=== PATIENT | female | born 1960 | race Caucasian/White ===

== ENCOUNTER → 2016-06-09 10:31 | Outpatient (CLI) | payer MEDICARE ==
[2011-12-23 11:24] VITALS: BMI 23.7
[2016-06-10 13:18] LABS: IMMUNOGLOBULIN E 175 IU/mL (0-100)
== END | disposition home or self-care (01) ==
LOC: D.RT 10:31
PROVIDERS: Internal Medicine Pulmonary Disease
DX: J44.9 Chronic obstructive pulmonary disease, unspecified (principal)

== ENCOUNTER → 2016-06-11 19:58 | Outpatient (CLI) | payer MEDICARE ==
[2011-12-23 11:24] VITALS: BMI 23.7
== END | disposition home or self-care (01) ==
LOC: D.SLEEP 19:58
DX: G47.33 Obstructive sleep apnea (adult) (pediatric) (principal)

== ENCOUNTER 2016-06-19 03:01 | Emergency (ER) | payer MEDICARE ==
[2011-12-23 11:24] VITALS: BMI 23.7
== END 2016-06-19 04:06 | disposition home or self-care (01) ==
LOC: D.ER 03:01
DX: R06.00 Dyspnea, unspecified (principal); J44.1 Chronic obstructive pulmonary disease with (acute) exacerbation; R51 Headache; M54.12 Radiculopathy, cervical region; E11.9 Type 2 diabetes mellitus without complications; E87.6 Hypokalemia; F17.200 Nicotine dependence, unspecified, uncomplicated

== ENCOUNTER 2016-06-22 01:16 | Emergency (ER) | payer MEDICARE ==
[2011-12-23 11:24] VITALS: BMI 23.7
[2016-06-22 01:44] LABS: BASOPHILS 0.3 % (0.0-2.0); EOSINOPHILS 2.9 % (0-7); HEMATOCRIT 36.7 % (36.0-48.0); HEMOGLOBIN 12.1 g/dL (12-16); IMMATURE GRANULOCYTES 0.2 % (0-5); LYMPHOCYTES 16.4 % (15-50); MCH 29.9 pg (26.0-34.0); MCV 90.6 fL (80.0-100.0); MEAN PLATELET VOLUME 10.2 fL (7.4-10.4); MONOCYTES 8.2 % (2-11); RBC 4.05 10x6/uL (4.00-5.40); RDW 14.3 % (11.5-14.5); WBC 6.2 10x3/uL (4.8-10.8)
[2016-06-22 01:49] LABS: PLATELET COUNT 238 10x3/uL (130-400)
[2016-06-22 01:58] LABS: ALBUMIN 3.5 g/dL (3.4-5.0); ALKALINE PHOSPHATASE 61 U/L (46-116); ALT (SGPT) 21 U/L (10-68); BILIRUBIN - TOTAL 0.37 mg/dL (0.2-1.3); CALC OSMOLALITY 279 mosm/kg (275-300); CALCIUM 8.1 mg/dL (8.5-10.1); CARBON DIOXIDE 26.3 mmol/L (21.0-32.0); CHLORIDE - SERUM 103 mmol/L (98-107); CREATININE - SERUM 0.9 mg/dL (0.6-1.3); GLUCOSE 111 mg/dL (74-106); POTASSIUM - SERUM 4.2 mmol/L (3.5-5.1); PROTEIN - SERUM 6.3 g/dL (6.4-8.2); SODIUM 137 mmol/L (136-145); UREA NITROGEN 26 mg/dL (7-18); eGFR NON AFRICAN AMERICAN 69 mL/min (90-120)
[2016-06-22 02:07] LABS: CKMB 1.5 U/L (0.0-3.6); CREATINE KINASE 80 UL (21-215)
[2016-06-22 02:08] LABS: TROPONIN-I < 0.017 ng/mL (0.000-0.060)
[2016-06-22 03:37] LABS: UDS - AMPHET NEGATIVE QUAL (NEGATIVE); UDS - BARB NEGATIVE QUAL (NEGATIVE); UDS - BENZO NEGATIVE QUAL (NEGATIVE); UDS - COCAINE NEGATIVE QUAL (NEGATIVE); UDS - METH NEGATIVE QUAL (NEGATIVE); UDS - OPIATE POSITIVE QUAL (NEGATIVE); UDS - PCP NEGATIVE QUAL (NEGATIVE); UDS - THC NEGATIVE QUAL (NEGATIVE)
== END 2016-06-22 04:08 | disposition home or self-care (01) ==
LOC: D.ER 01:16
PROVIDERS: Family Medicine
DX: R07.9 Chest pain, unspecified (principal); R51 Headache; J44.9 Chronic obstructive pulmonary disease, unspecified; E11.9 Type 2 diabetes mellitus without complications; E87.6 Hypokalemia; F17.200 Nicotine dependence, unspecified, uncomplicated; R00.0 Tachycardia, unspecified

== ENCOUNTER 2016-07-15 10:51 | Emergency (ER) | payer MEDICARE ==
[2011-12-23 11:24] VITALS: BMI 23.7
== END 2016-07-15 14:58 | disposition home or self-care (01) ==
LOC: D.ER 10:51
DX: R51 Headache (principal); R11.2 Nausea with vomiting, unspecified; J44.9 Chronic obstructive pulmonary disease, unspecified; E11.9 Type 2 diabetes mellitus without complications; E87.6 Hypokalemia; F17.200 Nicotine dependence, unspecified, uncomplicated

== ENCOUNTER 2016-07-28 00:20 | Emergency (ER) | payer MEDICARE ==
[2011-12-23 11:24] VITALS: BMI 23.7
[2016-07-28 01:32] LABS: KETONE - SERUM NEGATIVE (NEGATIVE)
[2016-07-28 01:41] LABS: BASOPHILS 0.1 % (0.0-2.0); EOSINOPHILS 0.1 % (0-7); HEMATOCRIT 37.1 % (36.0-48.0); HEMOGLOBIN 12.8 g/dL (12-16); IMMATURE GRANULOCYTES 0.3 % (0-5); LYMPHOCYTES 23.8 % (15-50); MCH 30.5 pg (26.0-34.0); MCHC 34.5 g/dL (31.0-37.0); MCV 88.3 fL (80.0-100.0); MEAN PLATELET VOLUME 11.2 fL (7.4-10.4); MONOCYTES 8.9 % (2-11); NEUTROPHILS 66.8 % (40-80); PLATELET COUNT 274 10x3/uL (130-400); RDW 14.1 % (11.5-14.5)
[2016-07-28 01:58] LABS: ALBUMIN 3.9 g/dL (3.4-5.0); ALKALINE PHOSPHATASE 53 U/L (46-116); ALT (SGPT) 23 U/L (10-68); BILIRUBIN - TOTAL 0.19 mg/dL (0.2-1.3); CALC OSMOLALITY 284 mosm/kg (275-300); CALCIUM 10.1 mg/dL (8.5-10.1); CARBON DIOXIDE 27.9 mmol/L (21.0-32.0); CHLORIDE - SERUM 101 mmol/L (98-107); CREATININE - SERUM 0.9 mg/dL (0.6-1.3); GLUCOSE 100 mg/dL (74-106); POTASSIUM - SERUM 3.6 mmol/L (3.5-5.1); PROTEIN - SERUM 7.2 g/dL (6.4-8.2); SODIUM 136 mmol/L (136-145); UREA NITROGEN 50 mg/dL (7-18); eGFR NON AFRICAN AMERICAN 69 mL/min (90-120)
[2016-07-28 02:19] LABS: APPEARANCE HAZY (CLEAR); BILIRUBIN NEGATIVE (NEGATIVE); COLOR STRAW (YELLOW); GLUCOSE NEGATIVE (NEGATIVE); KETONE NEGATIVE (NEGATIVE); LEUKOCYTE ESTERASE NEGATIVE (NEGATIVE); NITRITE NEGATIVE (NEGATIVE); PH 5.5 (5.0-6.0); PROTEIN NEGATIVE (NEGATIVE); UROBILINOGEN NORMAL (NORMAL)
[2016-07-28 02:25] LABS: UDS - AMPHET NEGATIVE QUAL (NEGATIVE); UDS - BARB NEGATIVE QUAL (NEGATIVE); UDS - BENZO NEGATIVE QUAL (NEGATIVE); UDS - COCAINE NEGATIVE QUAL (NEGATIVE); UDS - METH NEGATIVE QUAL (NEGATIVE); UDS - OPIATE POSITIVE QUAL (NEGATIVE); UDS - PCP NEGATIVE QUAL (NEGATIVE); UDS - THC NEGATIVE QUAL (NEGATIVE)
== END 2016-07-28 02:15 | disposition home or self-care (01) ==
LOC: D.ER 00:20
PROVIDERS: Emergency Medicine
DX: G40.409 Other generalized epilepsy and epileptic syndromes, not intractable, without status epilepticus (principal); Z91.14 Patient's other noncompliance with medication regimen; J44.9 Chronic obstructive pulmonary disease, unspecified; E11.9 Type 2 diabetes mellitus without complications; F17.200 Nicotine dependence, unspecified, uncomplicated

== ENCOUNTER 2016-07-28 05:04 | Emergency (ER) | payer MEDICARE ==
[2011-12-23 11:24] VITALS: BMI 23.7
== END 2016-07-28 06:05 | disposition home or self-care (01) ==
LOC: D.ER 05:04
DX: G43.909 Migraine, unspecified, not intractable, without status migrainosus (principal); F17.200 Nicotine dependence, unspecified, uncomplicated; J44.9 Chronic obstructive pulmonary disease, unspecified; E11.9 Type 2 diabetes mellitus without complications

== ENCOUNTER 2016-08-01 03:34 | Emergency (ER) | payer MEDICARE ==
[2011-12-23 11:24] VITALS: BMI 23.7
== END 2016-08-01 05:08 | disposition home or self-care (01) ==
LOC: D.ER 03:34
DX: R51 Headache (principal); J44.9 Chronic obstructive pulmonary disease, unspecified; E11.9 Type 2 diabetes mellitus without complications

== ENCOUNTER 2016-08-06 00:27 | Emergency (ER) | payer MEDICARE ==
[2011-12-23 11:24] VITALS: BMI 23.7
[2016-08-06 01:05] LABS: UDS - AMPHET NEGATIVE QUAL (NEGATIVE); UDS - BARB POSITIVE QUAL (NEGATIVE); UDS - BENZO NEGATIVE QUAL (NEGATIVE); UDS - COCAINE NEGATIVE QUAL (NEGATIVE); UDS - METH NEGATIVE QUAL (NEGATIVE); UDS - OPIATE POSITIVE QUAL (NEGATIVE); UDS - PCP NEGATIVE QUAL (NEGATIVE); UDS - THC NEGATIVE QUAL (NEGATIVE)
[2016-08-06 01:30] LABS: BASOPHILS 0.3 % (0.0-2.0); EOSINOPHILS 9.8 % (0-7); HEMATOCRIT 37.9 % (36.0-48.0); HEMOGLOBIN 12.4 g/dL (12-16); IMMATURE GRANULOCYTES 0.4 % (0-5); LYMPHOCYTES 21.4 % (15-50); MCH 30.1 pg (26.0-34.0); MCHC 32.7 g/dL (31.0-37.0); MEAN PLATELET VOLUME 11.2 fL (7.4-10.4); MONOCYTES 9.6 % (2-11); NEUTROPHILS 58.5 % (40-80); PLATELET COUNT 274 10x3/uL (130-400); RBC 4.12 10x6/uL (4.00-5.40); RDW 14.4 % (11.5-14.5); WBC 7.7 10x3/uL (4.8-10.8)
== END 2016-08-06 02:58 | disposition home or self-care (01) ==
LOC: D.ER 00:27
PROVIDERS: Emergency Medicine; Physician Assistant Medical
DX: G40.909 Epilepsy, unspecified, not intractable, without status epilepticus (principal); J44.9 Chronic obstructive pulmonary disease, unspecified; E11.9 Type 2 diabetes mellitus without complications; F17.200 Nicotine dependence, unspecified, uncomplicated

== ENCOUNTER 2016-08-18 09:22 | Emergency (ER) | payer MEDICARE ==
[2011-12-23 11:24] VITALS: BMI 23.7
[2016-08-18 12:25] LABS: BASOPHILS 0.5 % (0.0-2.0); EOSINOPHILS 4.3 % (0-7); HEMATOCRIT 39.3 % (36.0-48.0); IMMATURE GRANULOCYTES 0.5 % (0-5); LYMPHOCYTES 22.1 % (15-50); MCH 30.4 pg (26.0-34.0); MCHC 35.6 g/dL (31.0-37.0); MCV 85.4 fL (80.0-100.0); MEAN PLATELET VOLUME 10.3 fL (7.4-10.4); MONOCYTES 11.7 % (2-11); NEUTROPHILS 60.9 % (40-80); PLATELET COUNT 322 10x3/uL (130-400); RDW 12.6 % (11.5-14.5); WBC 4.4 10x3/uL (4.8-10.8)
[2016-08-18 12:33] LABS: CALC OSMOLALITY 251 mosm/kg (275-300); CARBON DIOXIDE 23.2 mmol/L (21.0-32.0); CHLORIDE - SERUM 90 mmol/L (98-107); CREATININE - SERUM 0.7 mg/dL (0.6-1.3); GLUCOSE 86 mg/dL (74-106); POTASSIUM - SERUM 3.7 mmol/L (3.5-5.1); SODIUM 125 mmol/L (136-145); UREA NITROGEN 16 mg/dL (7-18); eGFR NON AFRICAN AMERICAN > 90 mL/min (90-120)
== END 2016-08-18 13:59 | disposition home or self-care (01) ==
LOC: D.ER 09:22
PROVIDERS: Emergency Medicine
DX: G43.909 Migraine, unspecified, not intractable, without status migrainosus (principal); M54.12 Radiculopathy, cervical region; J44.9 Chronic obstructive pulmonary disease, unspecified; E11.9 Type 2 diabetes mellitus without complications

== ENCOUNTER → 2016-08-24 08:27 | Outpatient (CLI) | payer MEDICARE ==
[2011-12-23 11:24] VITALS: BMI 23.7
== END | disposition home or self-care (01) ==
LOC: D.CT 08:27
DX: J44.9 Chronic obstructive pulmonary disease, unspecified (principal)

== ENCOUNTER 2016-08-30 00:10 | Emergency (ER) | payer MEDICARE ==
[2011-12-23 11:24] VITALS: BMI 23.7
[2016-08-30 01:21] LABS: BASOPHILS 0.6 % (0.0-2.0); EOSINOPHILS 2.9 % (0-7); HEMATOCRIT 33.8 % (36.0-48.0); HEMOGLOBIN 11.4 g/dL (12-16); IMMATURE GRANULOCYTES 0.2 % (0-5); LYMPHOCYTES 25.8 % (15-50); MCH 29.5 pg (26.0-34.0); MCHC 33.7 g/dL (31.0-37.0); MCV 87.6 fL (80.0-100.0); MEAN PLATELET VOLUME 10.3 fL (7.4-10.4); MONOCYTES 6.3 % (2-11); NEUTROPHILS 64.2 % (40-80); RBC 3.86 10x6/uL (4.00-5.40); RDW 13.2 % (11.5-14.5); WBC 6.5 10x3/uL (4.8-10.8)
[2016-08-30 01:22] LABS: PLATELET COUNT 248 10x3/uL (130-400)
[2016-08-30 01:35] LABS: ALBUMIN 3.5 g/dL (3.4-5.0); ANION GAP 15.7 mmol/L (8-16); BILIRUBIN - TOTAL 0.21 mg/dL (0.2-1.3); CALCIUM 8.8 mg/dL (8.5-10.1); CARBON DIOXIDE 22.8 mmol/L (21.0-32.0); CREATININE - SERUM 1.2 mg/dL (0.6-1.3); POTASSIUM - SERUM 3.5 mmol/L (3.5-5.1); PROTEIN - SERUM 6.6 g/dL (6.4-8.2)
== END 2016-08-30 01:42 | disposition home or self-care (01) ==
LOC: D.ER 00:10
PROVIDERS: Physician Assistant Medical
DX: J44.1 Chronic obstructive pulmonary disease with (acute) exacerbation (principal); R51 Headache; M54.12 Radiculopathy, cervical region; E11.9 Type 2 diabetes mellitus without complications; G40.909 Epilepsy, unspecified, not intractable, without status epilepticus; F17.200 Nicotine dependence, unspecified, uncomplicated

== ENCOUNTER → 2016-09-03 07:09 | Outpatient (CLI) | payer MEDICARE ==
[2011-12-23 11:24] VITALS: BMI 23.7
== END | disposition home or self-care (01) ==
LOC: D.NM 09-02 08:15
DX: T84.84XA Pain due to internal orthopedic prosthetic devices, implants and grafts, initial encounter (principal); Z96.659 Presence of unspecified artificial knee joint; M25.562 Pain in left knee

== ENCOUNTER 2016-09-28 07:10 | Inpatient (IN) | payer MEDICARE ==
[2016-09-25 12:00] LABS: CALC OSMOLALITY 272 mosm/kg (275-300); CALCIUM 8.9 mg/dL (8.5-10.1); CHLORIDE - SERUM 103 mmol/L (98-107); CREATININE - SERUM 0.8 mg/dL (0.6-1.3); GLUCOSE 84 mg/dL (74-106); POTASSIUM - SERUM 4.5 mmol/L (3.5-5.1); SODIUM 137 mmol/L (136-145); UREA NITROGEN 13 mg/dL (7-18); eGFR NON AFRICAN AMERICAN 79 mL/min (90-120)
[2016-09-25 12:05] LABS: HEMATOCRIT 37.5 % (36.0-48.0); HEMOGLOBIN 12.5 g/dL (12-16); MCH 30.4 pg (26.0-34.0); MCHC 33.3 g/dL (31.0-37.0); MCV 91.2 fL (80.0-100.0); RBC 4.11 10x6/uL (4.00-5.40); RDW 15.2 % (11.5-14.5); WBC 6.5 10x3/uL (4.8-10.8)
[~2016-09-28] VITALS: Ht 162.6 cm; Wt 63.6 kg
[~2016-09-28 07:10] MED LIST: ADVAIR 500/501 DISK INH; CYCLOBENZAPRINE10 MG PO; FLOVENT HFA 11012 GM INH; FLUTICASONE PRO16 GM NASAL; GLUCOPHAGE1000 MG PO; IPRAT-ALBUT 0.5-3 ML UPD; LISINOPRIL-HCTZ1 T11 PO; PHENERGAN25 M1 PO; SINGULAIR10 MG PO
[2016-09-28] MEDS ORDERED: HYDROCODONE-APA1 TAB PO (08:06)
[2016-09-28 08:08] VITALS: BP 124/75; BMI 25.8
[2016-09-28 11:55] VITALS: BP 130/87
--- NOTE | 2016-09-28 12:04 | NUR ---
PT RECEIVED TO ROOM 2206 VIA BED, PT ORIENTED TO ROOM AND CALL LIGHT, PT STATES PAIN LEVEL OF 8/10. RECEIVED PAIN MED IN THE OR. PROVIDED PT WITH BEDPAN, NAD NOTED, CALL LIGHT IN REACH, WILL ASSESS PT AND START PLAN OF CARE.
--- NOTE | 2016-09-28 13:03 | NUR ---
DILAUDID REAL ESTATE BROKER STARTED 0.2MG Q10MIN 4MG LOCKOUT. TEACHING PROVIDED REAL ESTATE BROKER PUMP TO PT. PT VERBALIZED UNDERSTANDING ON HOW TO USE REAL ESTATE BROKER PUMP. PT DENIES ANY OTHER NEEDS AT THIS TIME. CALL LIGHT IN REACH, RESP THERAPY AT BEDSIDE, NAD NOTED, WILL CONTINUE TO MONITOR.
--- NOTE | 2016-09-28 14:12 | NUR ---
09/28/2016 14:10 CM: Case Management Patient requested admission notification be faxed to [facility] at [phone] - [email or web address].
--- NOTE | 2016-09-28 15:11 | NUR ---
SCD TO PUT TO RT LEG AT THIS TIME. PROVIDED PT WITH BEDPAN, PT DENIES ANY OTHER NEEDS AT THIS TIME. CALL LIGHT IN REACH, NAD NOTED, WILL CONTINUE TO MONITOR.
--- NOTE | 2016-09-28 15:38 | NUR ---
ADMINISTERED PERCOCET 10 FOR PAIN LEVEL OF 9/10. PT STATES THAT CAD DESIGNER IS NOT HELPING MUCH INFOMED HER THAT SHE NEEDS TO PUSH BUTTON WHEN IT TURNS GREEN IF SHE IS HAVING PAIN. PT VEBALIZED UNDERSTANDING REGARDING TEACHING. SCD ON TO RIGHT LEG.
[2016-09-28 16:10] VITALS: BP 135/67; Ht 162.6 cm; Wt 63.6 kg
[2016-09-28 16:17] VITALS: BP 109/53
--- NOTE | 2016-09-28 19:40 | NUR ---
RECIEVED SHIFT REPORT. PT IS LYING IN BED. ALERT AND ORIENTED AND ABLE TO VERBALIZE NEEDS. IV IS PATENT AND FLUIDS ARE RUNNING PER ORDER. O2 @ 2 PER NASAL CANNULA. PT IS ON BEDREST POSTOP. SCD TO RIGHT LEG. IMMOBILIZER TO LEFT LEG AND INCISION C/D/I. PT STATES PAIN IS 8/10 WITH DIGITAL ARCHIVIST PUMP. NO NEEDS ARE VERBALIZED AT THIS TIME. WILL CONTINUE TO MONITOR. SIDE RAILS ARE UP X 2. BED IS IN LOWEST POSTITION. CALL LIGHT IS WITHIN REACH.
[2016-09-28 20:00] VITALS: BP 106/59
--- NOTE | 2016-09-28 20:05 | NUR ---
SHIFT ASSESSMENT COMPLETED. NIGHT MEDS GIVEN WITH NO PROBLEMS. PT C/O PAIN 12/31. ADMINISTERED PRESCRIBED PRN PERCOCET PER ORDER. DENIES FURTHER NEEDS. WILL MONITOR. SIDE RAILS X 2. BED LOW. CALL LIGHT IN REACH.
[2016-09-29] VITALS: BP 105/68
[2016-09-29 04:00] VITALS: BP 110/70
--- NOTE | 2016-09-29 07:16 | NUR ---
PT WISHING TO BE DISCONNECTED FROM IV TO GO DOWNSTAIRS WITH VIA WHEELCHAIR. EXPLAINED TO PT THAT SHE WAS ON BEDREST AT THIS TIME AND THAT IF SHE LEFT THE NURSING UNIT THAT WE COULD NOT PROVIDE HER WITH IV PAIN MEDICATION. PT STATED THAT SHE WOULD REMAIN IN BED AND IN HER ROOM UNTIL THE NURSE PRACTITIONER ROUNDED. CALL LIGHT IN REACH. SHANK STITCHER SYRINGE CHANGED AND BOLUS DOSE ADMINISTERED PER ORDER. AT BEDSIDE. PROVIDED PT WITH COFFEE. WILL CONTINUE WITH PLAN OF CARE.
[2016-09-29 08:04] VITALS: BP 125/68
[2016-09-29] MEDS ORDERED: PERCOCET 10/3251 TA1 PO (08:21)
--- NOTE | 2016-09-29 08:46 | NUR ---
SCHEDULED MEDICATIONS ADMINISTERED AT THIS TIME. PT DISCONNECTED FROM IV AT THIS TIME AND TRANSFERRED INTO WHEELCHAIR, SO THAT SHE COULD GET SOME FRESH AIR. SHE STATED THAT SHE WAS NOT GOING TO SMOKE. REMAINS AT HER SIDE. CALL LIGHT IN REACH, WILL CONTINUE WITH PLAN OF CARE.
--- NOTE | 2016-09-29 10:30 | NUR ---
RETURNED TO ROOM AT THIS TIME. LINENS CHANGED AND AT BEDSIDE. CALL LIGHT IN REACH. WILL CONTINUE WITH PLAN OF CARE.
--- NOTE | 2016-09-29 11:12 | NUR ---
Patient Name: CHARLOTTE GARCIA Admission Status: Elective Accout number: [id number] Admission Date: 09-28-2016 : 1960 Admission Diagnosis: Attending: MARTINEZ Current LOS: 1 Anticipated DC Date: 09-29-2016 Planned Disposition: Home Primary Insurance: [facility] Discharge Planning Comments: CM MET WITH PATIENT REGARDING D/C NEEDS AND PLANS. PATIENT STATED SHE LIVES ALONE AND WILL NEED A CAB TO RETURN HOME AT DISCHARGE. PATIENT STATED SHE IS INDEPENDENT WITH HER CARE AND HAS OXYGEN 3L AT , C-PAP, AND GLUCOMETER AT HOME. PATIENT STATED SHE WANTS [facility] [employer] AND SIGNED THE MARJ FORM. PATIENT WANTS A WHEELCHAIR- TO SEND ORDER TO [facility] (THEY PROVIDE HER OXYGEN). PATIENTS PCP IS DR. VALLECILLO AT [facility]. PATIENT USES [facility] AT [facility]. CM WILL CONTINUE TO FOLLOW PATIENT WITH D/C NEEDS AND PLANS. PCP DR. VALLECILLO ([facility]) [facility] ANNAMARIE MILLIGAN (SISTER) [phone] Director Global Strategic Publisher Sales: Madai Cloud Is the patient Alert and Oriented? Yes 0 * How many steps to enter\exit or inside your home? 3 W/RAILS 0 * PCP DR. VALLECILLO AT [facility] 0 * Pharmacy [facility] 0 * Preadmission Environment Home Alone 0 * ADLs Independent 0 * Equipment CPAP Glucometer Oxygen 0 * List name and contact numbers for known caregivers / representatives who currently or will assist patient after discharge: ANNAMARIE MILLIGAN (SISTER) [phone] * Community resources currently utilized None 0 * Additional services required to return to the preadmission environment? Yes 0 * Can the patient safely return to the preadmission environment? Yes 0 * Has this patient been hospitalized within the prior 30 days at any hospital? No 0 Grand Total: 0
[2016-09-29 11:33] VITALS: BP 92/47
--- NOTE | 2016-09-29 11:40 | NUR ---
PT IN WHEELCHAIR TO GET SOME FRESH AIR WITH . PT STATES THAT SHE ISN'T GOING TO SMOKE, BUT NICOTINE PATCH REMOVED. IV TO LEFT FOREARM REMOVED WITH CATH TIP INTACT. WILL D/C ONCE DISCHARGE PAPERWORK COMPLETE.
--- NOTE | 2016-09-29 12:43 | NUR ---
PRN PERCOCET ADMINISTERED AT THIS TIME FOR PAIN. REMAINS AT BEDSIDE. CALL LIGHT IN REACH, WILL CONTINUE WITH PLAN OF CARE.
--- NOTE | 2016-09-29 14:55 | NUR ---
DISCHARGE PAPERWORK SIGNED AT THIS TIME. WILL CALL [facility] TO PICK PT UP.
--- NOTE | 2016-09-29 15:30 | NUR ---
CM REASSESSMENT NOTE; CM MET WITH PATIENT REGARDING D/C TODAY. PATIENT WILL DISCHARGE BY CAB. PATIENT HAD A WALKER DELIVERED TO HER ROOM FROM [facility]. PATIENT HAS [facility] FOR MEDICATION MANAGEMENT AND WOUND ASSESSMENT.
--- NOTE | 2016-09-30 13:29 | OP ---
PATIENT NAME: CHARLOTTE GARCIA MEDICAL RECORD: [id number] :60 LOCATION:D.MS [id number] ADMISSION DATE:09/28/16 SURGEON: PRASAD CARPENTER MD DATE OF OPERATION: 09/28/2016 PREOPERATIVE DIAGNOSES: Quadriceps failure with intrinsic rupture, left lower extremity; status post revision total knee arthroplasty. POSTOPERATIVE DIAGNOSES: Quadriceps failure with intrinsic rupture, left lower extremity; status post revision total knee arthroplasty. PROCEDURE: Quadriceps reconstruction with allograft. SURGEON: Prasad Carpenter MD. ANESTHESIA: General. INTRAOPERATIVE COMPLICATIONS: None. SUMMARY OF PATHOLOGIC FINDINGS: The patient had an active 15-degree extensor lag and a very elongated stretched and midsubstance tear on the quadriceps mechanism. OPERATIVE SUMMARY IN DETAIL: After obtaining the appropriate preoperative orthopedic surgery consent as well as anesthetic consultation, evaluation and clearance, the patient was brought to the operating room and placed on the operating table in supine position. After general laryngeal mask was administered, a tourniquet was placed about the proximal aspect of the left lower extremity. Left lower extremity was then prepped and draped in routine sterile fashion. Leg was elevated, exsanguinated and tourniquet was inflated to 350 mmHg. Previously used incision was taken down. Paramedian arthrotomy was performed. The incision was taken directly of the VMO just on the tendinous sag. The patient's weakened fibrotic tendon was then mobilized for a long strip. The distal part of the quad was split in half. The mobilized strip of tendon was sutured with a Biomet FiberLoop. It was then advanced and placed into the top of the patella tendon, held in place with a 5.5 SwiveLock from [employer]. Having completed this, VMO was advanced for vastus medialis oblique advancement in a [id number] imbricated suture as was the vastus lateralis. In the mid substance of the quad tendon, a quad folded semi-tendinosus tendon was sewn in circumferentially after it was sewn on itself using a Krackow stitch. All suture was done with #2 FiberWire. This resulted in excellent construct. This was then copiously irrigated and closed with #1 Vicryl followed by 2-0 Vicryl and skin kehinde. Sterile dressings were applied. The patient was awakened, taken to recovery in stable condition. All final needle and sponge counts were correct. TRANSINT:[id number] Voice Confirmation ID: [id number] DOCUMENT ID: [id number] OPERATIVE REPORT [id number] CHARLOTTE GARCIA MD, PRASAD AKERS at 1329 CC: [id number] DICTATION DATE: 09/28/16 111 TOP PRINTING PRESS OPERATOR: 09/28/162031 DIS IN 09/29/16 [id number] [place] [address]
== END 2016-09-29 15:20 | disposition home health service (06) | DRG 502 ==
LOC: D.SDCHOLD 07:10 → D.MS 07:10 → D.SDCHOLD 08:00 → D.MS 08:58 → D.SDCHOLD 09:00 → D.MS 09-29 15:20
PROVIDERS: Anesthesiology; ADMIT Orthopaedic Surgery
PROC: 0LQM0ZZ Repair Left Upper Leg Tendon, Open Approach (ICD-10-PCS; principal; 2016-09-25)
DX: S76.112A Strain of left quadriceps muscle, fascia and tendon, initial encounter (principal); Z96.652 Presence of left artificial knee joint; X58.XXXA Exposure to other specified factors, initial encounter

== ENCOUNTER → 2016-10-01 14:44 | Outpatient (CLI) | payer MEDICARE ==
[2016-09-28 16:10] VITALS: BMI 24.0
[~2016-10-01 14:44] MED LIST changes: +HYDROCODONE-APA1 TAB PO; +PERCOCET 10/3251 TA1 PO
[2016-10-01 15:37] LABS: APPEARANCE CLEAR (CLEAR); BILIRUBIN NEGATIVE (NEGATIVE); COLOR YELLOW (YELLOW); GLUCOSE NEGATIVE (NEGATIVE); KETONE NEGATIVE (NEGATIVE); LEUKOCYTE ESTERASE NEGATIVE (NEGATIVE); NITRITE NEGATIVE (NEGATIVE); PROTEIN NEGATIVE (NEGATIVE); UROBILINOGEN NORMAL (NORMAL)
== END | disposition home or self-care (01) ==
LOC: D.LABREF 14:44
PROVIDERS: Family Medicine
DX: R10.9 Unspecified abdominal pain (principal); R30.0 Dysuria

== ENCOUNTER 2016-10-09 16:10 | Emergency (ER) | payer MEDICARE ==
[2016-09-28 16:10] VITALS: BMI 24.0
== END 2016-10-09 21:32 | disposition home or self-care (01) ==
LOC: D.ER 16:10
DX: T81.31XA Disruption of external operation (surgical) wound, not elsewhere classified, initial encounter (principal); M54.12 Radiculopathy, cervical region; J44.9 Chronic obstructive pulmonary disease, unspecified; E11.9 Type 2 diabetes mellitus without complications

== ENCOUNTER 2016-10-11 09:08 | Emergency (ER) | payer MEDICARE, MEDICAID ==
[2016-09-28 16:10] VITALS: BMI 24.0
[2016-10-12] MEDS ORDERED: HYDROCODONE-APA1 TAB PO (18:42)
[2016-10-12] MEDS ORDERED: BACTRIM DS TABL1 TAB PO (18:42)
== END 2016-10-11 10:40 | disposition home or self-care (01) ==
LOC: D.ER 09:08
DX: L76.22 Postprocedural hemorrhage of skin and subcutaneous tissue following other procedure (principal); M54.12 Radiculopathy, cervical region; J44.9 Chronic obstructive pulmonary disease, unspecified; E11.9 Type 2 diabetes mellitus without complications; F17.200 Nicotine dependence, unspecified, uncomplicated

== ENCOUNTER 2016-10-12 10:54 | Day surgery (SDC) | payer MEDICARE ==
[~2016-10-12] VITALS: Ht 162.6 cm; Wt 68.0 kg
[2016-10-12 15:32] VITALS: BP 133/75; Ht 162.6 cm; Wt 68.0 kg
--- NOTE | 2016-10-12 17:30 | NUR ---
PT COMPLAINS OF KNEE PAIN. ORDER RECEIVED FROM DR ARIAS FOR MORPHINE IVP 4MG. STATES PAIN 9 OUT OF 10.
--- NOTE | 2016-10-12 17:37 | NUR ---
PT STATES PAIN IS GETTING BETTER. 8 OUT OF 10.
[2016-10-12] MEDS ORDERED: HYDROCODONE-APA1 TAB PO (18:42)
[2016-10-12] MEDS ORDERED: BACTRIM DS TABL1 TAB PO (18:42)
--- NOTE | 2016-10-12 20:48 | NUR ---
2020 DC INSTS GIVEN VOICED UNDERSTANDING, RX'S GIVEN, RELEASED IN WC
--- NOTE | 2016-11-12 14:01 | OP ---
PATIENT NAME: CHARLOTTE GARCIA MEDICAL RECORD: [id number] :60 LOCATION:D.OPS ADMISSION DATE: SURGEON: PRASAD CARPENTER MD DATE OF OPERATION: 10/12/2016 Orthopedic Surgery Operative Note PREOPERATIVE DIAGNOSIS: Open wound, status post fall in the left knee. POSTOPERATIVE DIAGNOSIS: Open wound, status post fall in the left knee. PROCEDURE: Incision and drainage of the left knee with wound closure. SURGEON: Prasad Carpenter MD. ANESTHESIA: General. INTRAOPERATIVE COMPLICATIONS: None. SUMMARY OF PATHOLOGIC FINDINGS: The patient's underlying repair was still in good shape and this required excision of skin, subcutaneous tissue, portions of fat and fascia as well as muscle. OPERATIVE SUMMARY IN DETAIL: After obtaining the appropriate preoperative orthopedic surgery consent as well as anesthetic consultation, evaluation and clearance, the patient was brought to the operating room and placed on the operating table in supine position. After adequate general laryngeal mask was administered, the patient's left lower extremity was prepped and draped in a routine sterile fashion. At this point, bulb syringe, curettage as well as a scalpel and rongeur were utilized to debride any portions of nonviable appearing tissue and removed any clots. This was then copiously irrigated and the wound was closed using 0 Prolene. Having completed this closure, sterile dressings were applied, the patient's knee was placed back into a knee immobilizer, she was then awakened and taken to recovery room in stable condition. All final needle and sponge counts were correct. TRANSINT:[id number] Voice Confirmation ID: [id number] DOCUMENT ID: [id number] PRASAD CARPENTER MD at 1401 CC: [id number] DICTATION DATE: 11/09/16 1629 TEMPLATE WORKER: 11/09/16 2332 [facility] 10/12/16 [place] [address]
== END 2016-10-12 20:20 | disposition home or self-care (01) ==
LOC: D.OPS 10:54
DX: S76.192A Other specified injury of left quadriceps muscle, fascia and tendon, initial encounter (principal); W19.XXXA Unspecified fall, initial encounter; Z01.812 Encounter for preprocedural laboratory examination; T81.30XA Disruption of wound, unspecified, initial encounter; F17.200 Nicotine dependence, unspecified, uncomplicated; J44.9 Chronic obstructive pulmonary disease, unspecified; I10 Essential (primary) hypertension

== ENCOUNTER 2016-10-17 08:25 | Emergency (ER) | payer MEDICARE ==
[2016-10-12 15:32] VITALS: BMI 25.8
[~2016-10-17 08:25] MED LIST changes: +BACTRIM DS TABL1 TAB PO
== END 2016-10-17 11:30 | disposition home or self-care (01) ==
LOC: D.ER 08:25
DX: G89.18 Other acute postprocedural pain (principal); R06.2 Wheezing; J44.9 Chronic obstructive pulmonary disease, unspecified; E11.9 Type 2 diabetes mellitus without complications; F17.200 Nicotine dependence, unspecified, uncomplicated

== ENCOUNTER 2016-11-10 00:02 | Emergency (ER) | payer MEDICARE ==
[2016-10-12 15:32] VITALS: BMI 25.8
[2016-11-10 00:51] LABS: HEMATOCRIT 30.3 % (36.0-48.0); HEMOGLOBIN 10.5 g/dL (12-16); LYMPHOCYTES 20.2 % (15-50); MCH 30.1 pg (26.0-34.0); MCHC 34.7 g/dL (31.0-37.0); MCV 86.8 fL (80.0-100.0); MEAN PLATELET VOLUME 9.1 fL (7.4-10.4); NEUTROPHILS 71.1 % (40-80); PLATELET COUNT 370 10x3/uL (130-400); RBC 3.49 10x6/uL (4.00-5.40); RDW 12.4 % (11.5-14.5); WBC 6.5 10x3/uL (4.8-10.8)
[2016-11-10 01:00] LABS: ALBUMIN 2.9 g/dL (3.4-5.0); ALKALINE PHOSPHATASE 66 U/L (46-116); ALT (SGPT) 14 U/L (10-68); BILIRUBIN - TOTAL 0.33 mg/dL (0.2-1.3); CALC OSMOLALITY 265 mosm/kg (275-300); CALCIUM 9.3 mg/dL (8.5-10.1); CARBON DIOXIDE 23.5 mmol/L (21.0-32.0); CHLORIDE - SERUM 98 mmol/L (98-107); CREATININE - SERUM 0.9 mg/dL (0.6-1.3); GLUCOSE 99 mg/dL (74-106); POTASSIUM - SERUM 4.3 mmol/L (3.5-5.1); PROTEIN - SERUM 7.2 g/dL (6.4-8.2); SODIUM 132 mmol/L (136-145); UREA NITROGEN 16 mg/dL (7-18); eGFR NON AFRICAN AMERICAN 69 mL/min (90-120)
[2016-11-10 01:12] LABS: CREATINE KINASE 46 UL (21-215)
[2016-11-10 01:14] LABS: TROPONIN-I < 0.017 ng/mL (0.000-0.060)
== END 2016-11-10 02:54 | disposition home or self-care (01) ==
LOC: D.ER 00:02
PROVIDERS: Emergency Medicine
DX: R07.9 Chest pain, unspecified (principal); J40 Bronchitis, not specified as acute or chronic; E11.9 Type 2 diabetes mellitus without complications; F17.200 Nicotine dependence, unspecified, uncomplicated; R00.0 Tachycardia, unspecified

== ENCOUNTER 2016-11-11 20:24 | Emergency (ER) | payer MEDICARE ==
[2016-10-12 15:32] VITALS: BMI 25.8
== END 2016-11-11 21:40 | disposition home or self-care (01) ==
LOC: D.ER 20:24
DX: G40.909 Epilepsy, unspecified, not intractable, without status epilepticus (principal); Z91.14 Patient's other noncompliance with medication regimen; F17.200 Nicotine dependence, unspecified, uncomplicated

== ENCOUNTER 2016-12-02 11:11 | Outpatient (CLI) | payer MEDICARE ==
[~2016-12-02] VITALS: Ht 162.6 cm; Wt 68.2 kg
--- NOTE | ~2016-12-02 | HEMODYNAMI ---
PATIENT:CHARLOTTE GARCIA MEDICAL RECORD: [id number] : 60 LOCATION:[facility] ADMISSION DATE: 12/02/16 Generatedon:12/02/201613:32 Patient name: CHARLOTTE GARCIA Patient #: [id number] SSN: : 1960 Date of study: 12/02/2016 Page: Of Hemodynamic Procedure Report Patient Data Patient Demographics Procedure consent was obtained First Name: CHARLOTTE Gender: Female Last Name: JOSE : 1960 Middle Initial: A Age: 55 year(s) Patient #: [id number] Race: Unknown Additional ID: [id number] Contact details Address: [address] [place] [address] [address] State: [place] City: [place] Zip code: [address] Past Medical History Allergies Allergen Reaction Date Comments Reported Natural rubber 12/02/2016 and latex Other allergy 12/02/2016 Darvocet Admission Admission Data Admission Date: 12/02/2016 Admission Time: 11:11 Lab Results Lab Result Date: 12/02/2016 Lab Result Time: 0:00 Biochemistry Name Units Result Min Max Creatinine mg/dl 0.9 --(-*--)-- 0.6 1.3 CBC Name Units Result Min Max Hemoglobin g/dl 11.8 *-(----)-- 13.5 17.5 Procedure Procedure Types Cath Procedure Diagnostic Procedure C [facility] w/Coronaries Miscellaneous Procedures Moderate Sedation up to 15 minutes Procedure Description Procedure Date Procedure Date: 12/02/2016 Procedure Start Time: 13:21 Procedure End Time: 13:30 Procedure Staff Name Function Braden Hammer RT Scrub Eliseo Rai RN Nurse Minnie Moran RT Monitor Gus Valles MD Performing Physician Mathew Krishnamurthy RN Manual Arts Therapist Procedure Data Cath Procedure Fluoroscopy Diagnostic fluoroscopy Total fluoroscopy Time: 1.5 time: 1.5 min min Diagnostic fluoroscopy Total fluoroscopy dose: 173 dose: 173 mGy mGy Contrast Material Contrast Material Type Amount (ml) Isovue 300 68 Entry Location Entry Primary Successful Side Size Upsize Upsize Entry Closure Succes sful Closure Location (Fr) 1 (Fr) 2 (Fr) Remarks Device Remarks Femoral Right 5 Fr Exoseal artery Estimated blood loss: 5 ml Diagnostic catheters Device Type Used For End Catheter Placement Cordis 5Fr JL 4.0 Left Coronary Catheter (MP) Angiography Cordis 5Fr 3DRC Catheter Right Coronary (MP) Angiography Cordis 5Fr Pigtail LV Angiography Catheter (MP) Procedure Complications No complications Procedure Medications Medication Administration Route Dosage Oxygen NC 2 l/min Lidocaine 2% added to field 20 Heparin Flush Bag added to field 2 bags (1000units/500ml NS) 0.9% NaCl I.V. 100 ml/hr Versed I.V. 1 mg Fentanyl I.V. 50 mcg Versed I.V. 1 mg Fentanyl I.V. 50 mcg Versed I.V. 1 mg Fentanyl I.V. 50 mcg Hemodynamics Rest HGB: 11.8 (g/dl) Heart Rate: 86 (bpm) Pressure Samples Time Site Value (mmHg) Purpose Heart Use Rate(bpm) 13:26 LV 122/-18,5 EDP 78 Gradients Valve Time Site Site Mean SEP/DFP Peak To Heart Use 1 2 (mmHg) (sec/min) Peak Rate (mmHg) (bpm) Aortic 13:27 LV AO 93 Snapshots Pre Cath Intra NCS Post Cath Vital Signs Time Heart Resp SPO2 etCO2 TT1blfm NIBP (mmHg) Rhythm Pain Sedation Rate (ipm) (%) (mmHg) (mmHg) Status Level (bpm) 13:09:16 84 18 99 0 0 156/94(127) NSR 0 (11) 10(A) , No pain 13:13:32 87 19 100 0 0 146/88(122) NSR 0 (11) 10(A) , No pain 13:17:48 83 18 98 0 0 128/75(106) NSR 0 (11) 10(A) , No pain 13:22:00 88 16 96 0 0 122/80(104) NSR 0 (11) 10(A) , No pain 13:26:14 86 19 98 0 0 115/60(83) NSR 0 (11) 10(A) , No pain 13:30:24 87 18 96 0 0 111/69(87) NSR 0 (11) 10(A) , No pain Medications Time Medication Route Dose Verified Delivered Reason Notes Effe ctiveness by by 13:05:24 Oxygen NC 2 Gus Buffie used for l/min [facility] Rai physical therapist aide MD 13:07:28 Lidocaine 2% added 20ml Gus Gus for local to vial [facility] anesthetic field MD BRADLEY 13:07:35 Heparin Flush added 2 Gus Gus used for Bag to bags [facility] procedure (1000units/500ml field MD BRADLEY NS) 13:07:43 0.9% NaCl I.V. 100 Gus Buffie Per ml/hr [facility] Rai RN physician 13:15:12 Versed I.V. 1 mg [address] [facility] Rai RN sedation 13:15:18 Fentanyl I.V. 50 Gus Buffie for [facility] Short[facility] Rai RN sedation 13:17:24 Versed I.V. 1 mg [address] [facility] Rai RN sedation 13:17:27 Fentanyl I.V. 50 Gus Buffie for [facility] Rai RN sedation 13:22:39 Versed I.V. 1 mg Gus Buffie for Reena Cecelia RN sedation 13:22:42 Fentanyl I.V. 50 Gus Buffie for [facility] [place] Cecelia RN sedation Procedure Log Time Note 12:57:16 Mathew Krishnamurthy RN sent for patient. Start room use. 12:57:17 Time tracking: Regular hours 12:57:20 Plan of Care:Hemodynamics will remain stable., Cardiac rhythm will remain stable., Comfort level will be maintained., Respiratory function will remain adequate., Patient/ family verbilizes understanding of procedure., Procedure tolerated without complication., Recovers from procedure without complications.. 13:00:01 Lab Result : Creatinine 0.9 mg/dl 13:00:01 Lab Result : Hemoglobin 11.8 g/dl 13:00:39 Patient received from Pre/Post Procedure Room to [facility] 1 Alert and oriented. Tansferred to table in Supine position. 13:00:41 Warm blankets applied, and amrit hugger turned on for patient comfort. 13:00:41 Correct patient and procedure confirmed by team. 13:00:42 Signed procedure consent form obtained from patient. 13:00:44 ECG and BP/O2 sat monitors applied to patient. 13:00:44 Full Disclosure recording started 13:05:24 Oxygen 2 l/min NC was administered by Eliseo Rai RN; used for procedure; 13:07:28 Lidocaine 2% 20ml vial added to field was administered by Gus Valles MD; for local anesthetic; 13:07:35 Heparin Flush Bag (1000units/500ml NS) 2 bags added to field was administered by Gus Valles MD; used for procedure; 13:07:43 0.9% NaCl 100 ml/hr I.V. was administered by Eliseo Rai RN; Per physician; 13:08:12 Vital chart was started 13:08:15 Rhythm: sinus rhythm 13:09:03 H&P Date Dictated: 11/26/2016 Within 30 days and on chart., H&P Addendum completed by physician on day of procedure. (MUST COMPLETE FOR ALL OUTPATIENTS). 13:09:04 Pre-procedure instructions explained to patient. 13:09:05 Pre-op teaching completed and patient verbalized understanding. 13:09:06 Family in waiting room. 13:09:08 Patient NPO since Midnight. 13:09:17 Patient allergic to Natural rubber and latex 13:09:28 Patient allergic to Other allergyDarvocet 13:09:30 Is the patient allergic to Iodine/contrast media? No. 13:09:33 Is patient on blood thinner?No 13:09:38 Patient diabetic? Yes. 13:09:39 If diabetic: On Metformin? Yes 13:09:42 If on Metformin: Last Dose? 11/29/2016 13:09:46 Previous problem with sedation/anesthesia? No ? 13:09:47 Snore? Yes 13:09:48 Sleep apnea? Yes 13:09:49 Deviated septum? No 13:09:51 Opens mouth fully? Yes 13:09:51 Sticks out tongue? Yes 13:09:57 Airway obstruction? Yes COPD 13:10:01 Dentures? No ? 13:10:04 Pre procedure: right dorsailis pedis pulse 2+ Normal; easily identifiable; not easily obliterated 13:10:23 Pre procedure: right radial pulse 0-Absent 13:10:26 Patient pain scale 0/10 ?. 13:10:33 IV patent on arrival in left hand with 0.9% NaCl at KVO. 13:10:37 Lab results completed and on chart. 13:10:40 Right groin area was prepped with chlora-prep and draped in sterile fashion 13:10:41 Alarms reviewed by R. N. 13:10:41 Sharps counted by scrub and verified by R.N. 13:10:46 Use device set Femoral Dx 13:10:47 Acist Syringe opened to sterile field. 13:10:47 Bag Decanter opened to sterile field. 13:10:48 Medline Cath Pack opened to sterile field. 13:10:48 Terumo 5Fr Spofford Sheath opened to sterile field. 13:10:48 St 260cm J .035 wire opened to sterile field. 13:10:49 Acist Hand Control opened to sterile field. 13:10:50 Acist Manifold opened to sterile field. 13:10:50 Diagnostic Infinity 5Fr Multipack catheter opened to sterile field. 13:10:51 Tegaderm 4 x 4 opened to sterile field. 13:14:11 Final Timeout: patient, procedure, and site verified with staff and physician. All members of the team are in agreement. 13:14:14 Right groin site verified by team. 13:14:18 Physical assessment completed. ASA score P 2 - A patient with mild systemic disease as per Gus Valles MD. 13:14:21 Sedation plan: IV Moderate Sedation Versed, Fentanyl 13:14:33 Baseline sample Acquired. 13:15:12 Versed 1 mg I.V. was administered by Eliseo Rai RN; for sedation; 13:15:18 Fentanyl 50 mcg I.V. was administered by Eliseo Rai RN; for sedation; 13:17:24 Versed 1 mg I.V. was administered by Eliseo Rai RN; for sedation; 13:17:27 Fentanyl 50 mcg I.V. was administered by Eliseo Rai RN; for sedation; 13:18:55 Zero performed for pressure channel P1 13:21:06 Procedure started. 13:21:12 Local anesthetic to right femoral artery with Lidocaine 2% by Gus Valles MD.INITIAL ACCESS ONLY 13:22:04 A 5 Fr sheath was inserted into the Right Femoral artery 13:22:13 A Cordis 5Fr JL 4.0 Catheter () was advanced over the wire and used for Left Coronary Angiography. 13:22:39 Versed 1 mg I.V. was administered by Eliseo Rai RN; for sedation; 13::42 Fentanyl 50 mcg I.V. was administered by Eliseo Rai RN; for sedation; 13:24:30 Catheter removed. 13:24:35 A Cordis 5Fr 3DRC Catheter (MP) was advanced over the wire and used for Right Coronary Angiography. 13:25:02 Catheter removed. 13:25:11 A Cordis 5Fr Pigtail Catheter (MP) was advanced over the wire and used for LV Angiography. 13:26:31 LV gram done using WALKER 13::34 LV hemodynamics recorded. 13::37 Injector settings: Ml/sec: 10, Volume: 20, 13::44 EF : 55 % 13:27:11 Catheter removed. 13:27:20 Sheath removed intact; hemostasis achieved with Exoseal to the Right Femoral artery. 13:27:22 Procedure ended.(Physican Out) 13:27:39 Fluoroscopy time 01.50 minutes. 13:27:44 Flurop Dose total: 173 13:27:44 Fluoroscopy dose: 173 mGy 13:27:46 Contrast amount:Isovue 300 68ml. 13:27:47 Sharps counted by scrub and verified by R.N. 13:27:57 Cordis 5Fr Exoseal opened to sterile field. 13:28:01 Insertion/operative site no bleeding no hematoma. 13:28:10 Post-op/insertion site Right Femoral artery dressed using a 4 x 4 and Tegaderm. 13:28:14 Post right femoral artery:stable, clean and dry 13:28:15 Post Procedure Pulses reassessed and unchanged 13:28:33 Post-procedure physical assessment completed. ASA score P 2 - A patient with mild systemic disease as per Gus Valles MD. 13:28:35 Post procedure rhythm: unchanged. 13:28:38 Estimated blood loss: 5 ml 13:28:40 Post procedure instruction explained to patient.Patient verbalizes understanding. 13:28:40 Patient needs reinforcement of post procedure teaching. 13:28:48 Procedure type changed to Cath procedure, Diagnostic procedure, LHC, LHC w/Coronaries, Miscellaneous Procedures, Moderate Sedation up to 15 minutes 13:28:52 Procedure Complication : No complications 13:28:54 See physician's report for complete and final results. 13:29:26 Procedure and supply charges have been captured, reviewed, submitted and are correct. 13:30:29 Vital chart was stopped 13:30:31 Report given to Pre/Post Procedure Room. 13:30:34 Patient transfered to Pre/Post Procedure Room with Stretcher. 13:30:46 Procedure ended. 13:30:46 Full Disclosure recording stopped 13:30:52 End room use (Document Last) Device Usage Item Name Manufacture Quantity Catalog Hospital Part Current Minimal Lo t# / Number Charge Number Stock Stock Serial# Code Acist Acist 1 98596 [id number] 831831 146920 20 Syringe [employer] Inc Bag Microtek 1 2002S 193903 66524 989832 5 Decanter [employer] Inc. Medline Cardinal 1 [id number] 397772 92644 101200 5 Cath Pack Health Terumo 5Fr Terumo 1 [id number] 902506 378594 761329 [address] 1 430806 779161 688185 747794 30 260cm J .035 wire Acist Hand Acist 1 58341 759700 706323 343574 5 Control Medical Systems Inc Acist Acist 1 74427 969676 837689 576755 5 Manifold Medical Systems Inc Diagnostic Cardinal 1 FL7095 387567 29669 905118 30 Infinity Health 5Fr Multipack catheter Tegaderm 4 3M 1 1626W 421836 117059 180969 5 x 4 Cordis 5Fr Cardinal 1 147676 5 JL 4.0 Health Catheter (MP) Cordis 5Fr Cardinal 1 725039 5 3DRC Health Catheter (MP) Cordis 5Fr Cardinal 1 428082 5 Pigtail Health Catheter (MP) Cordis 5Fr Cardinal 1 EX500 459994 080855 593767 10 Asteres Signature Audit Blanco Stage Time Signature Unsigned Intra-Procedure 12/02/2016 Minnie 1:32:19 PM Counts RT(R) Signatures Monitor : Minnie Signature : Counts RT Date : Time : [facility] [address] [place] [address]
[2016-12-02] MEDS ORDERED: NEURONTIN 300300 MG PO (11:59)
[2016-12-02] MEDS ORDERED: IMITREX100 MG PO (11:59)
[2016-12-02] MEDS ORDERED: ZESTRIL40 MG PO (12:00)
[2016-12-02 12:08] VITALS: BP 100/80; Ht 162.6 cm; Wt 68.2 kg
[2016-12-02 12:38] LABS: BASOPHILS 0.6 % (0-2); EOSINOPHILS 4.5 % (0-7); HEMATOCRIT 35.6 % (36.0-48.0); HEMOGLOBIN 11.8 g/dL (12-16); IMMATURE GRANULOCYTES 0.4 % (0-5); LYMPHOCYTES 31.8 % (15-50); MCH 29.9 pg (26.0-34.0); MCHC 33.1 g/dL (31.0-37.0); MCV 90.1 fL (80.0-100.0); MEAN PLATELET VOLUME 9.8 fL (7.4-10.4); MONOCYTES 7.5 % (2-11); NEUTROPHILS 55.2 % (40-80); PLATELET COUNT 419 10x3/uL (130-400); RBC 3.95 10x6/uL (4.00-5.40); RDW 13.8 % (11.5-14.5); WBC 5.1 10x3/uL (4.8-10.8)
[2016-12-02 12:41] LABS: ANION GAP 15.7 mmol/L (8-16); CALCIUM 9.6 mg/dL (8.5-10.1); CARBON DIOXIDE 22.2 mmol/L (21.0-32.0); CREATININE - SERUM 0.9 mg/dL (0.6-1.3); POTASSIUM - SERUM 4.9 mmol/L (3.5-5.1)
--- NOTE | 2016-12-02 14:00 | NUR ---
2L NC, NO RESP DISTRESS NOTED. RIGHT GROIN 6F EXOSEAL CDI, NO BLEEDING OR HEMATOMA NOTED. NO C/O CHEST PAIN OR NAUSEA. VSS.
--- NOTE | 2016-12-02 14:15 | NUR ---
1415 5 FR EXOSEAL R/GROIN CDI NO BLEEDING NO HEMATOMA NOTED. INSTRUCTED PATIENT TO KEEP HEAD FLAT ON PILLOW WITH RLE [facility] 1430 SANDWICH AND SODA TO BEDSIDE WITH NEEDS PROVIDED
--- NOTE | 2016-12-02 14:45 | NUR ---
NO CHANGE IN ASSESSMENT CHEST PAIN DENIED WITH VSS
--- NOTE | 2016-12-02 15:21 | NUR ---
RESTING QUIETLY WITH EYES CLOSED 5 FR EXOSEAL R/GROIN CDI NO BLEEDING NO HEMATOMA NOTED. CHEST PAIN DENIED
--- NOTE | 2016-12-02 15:34 | NUR ---
PIV REMOVED WITH DRESSING APPLIED. CHEST PAIN DENIED. 5 FR EXOSEAL R/GROIN CDI NO BLEEDING NO HEMATOMA NOTED. PATIENT UP TO GET DRESSED FOR DISCHARGE HOME
--- NOTE | 2016-12-04 11:01 | OP ---
PATIENT NAME: CHARLOTTE GARCIA MEDICAL RECORD: [id number] :60 LOCATION:D.CAT ADMISSION DATE: SURGEON: CHASE FRANCO MD OPERATION DATE: 12/02/16 PROCEDURES: 1. Left heart catheterization. 2. Selective coronary angiography. PROCEDURE IN DETAIL: After informed consent was obtained and after detailed explanation of risks, benefits, as well as alternative therapies, the patient elected to proceed with angiogram. The right femoral area was prepped and draped in a normal sterile fashion. The right femoral artery was cannulated via modified Seldinger technique with placement of 5-Trinidadian sheath, 5-4 left to right Uday, 5-4 pigtail catheter. All catheters exchanged through this sheath. The procedure was well-tolerated, and the patient was returned to the west after the sheath was removed and ExoSeal device placed. Left ventriculography was performed in standard 30 degree WALKER view, normal wall motion, normal systolic function. CORONARY ANATOMY: 1. LEFT MAIN: The left main is free of disease. 2. LEFT ANTERIOR DESCENDING: The left anterior descending is free of disease as is the diagonal system. 3. CIRCUMFLEX: The left circumflex is free of disease as is the marginal system. 4. RIGHT CORONARY ARTERY: The right coronary artery is the dominant artery, gives rise to the PDA, free of disease. IMPRESSION: Normal left ventricular systolic function, normal coronary anatomy. CHASE FRANCO MD at 1101 CC: [id number] DICTATION DATE: 12/02/16 1400 LOCOMOTIVE BOILERMAKER: DM 12/02/16 1556 DEP CLI 12/02/16 [id number] [place] [address]
== END 2016-12-02 15:58 ==
LOC: D.CATH 11:11
PROVIDERS: Internal Medicine Interventional Cardiology
DX: I20.9 Angina pectoris, unspecified (principal); Z01.812 Encounter for preprocedural laboratory examination

== ENCOUNTER → 2016-12-10 10:06 | Outpatient (CLI) | payer MEDICARE, MEDICAID ==
[2016-12-02 12:08] VITALS: BMI 25.8
[~2016-12-10 10:06] MED LIST changes: +IMITREX100 MG PO; +NEURONTIN 300300 MG PO; +ZESTRIL40 MG PO
== END | disposition home or self-care (01) ==
LOC: D.NM 10:06
DX: M25.562 Pain in left knee (principal)

== ENCOUNTER → 2016-12-16 21:37 | Outpatient (CLI) | payer MEDICARE, MEDICAID ==
[2016-12-02 12:08] VITALS: BMI 25.8
== END | disposition home or self-care (01) ==
LOC: D.LABREF 21:37
DX: M25.561 Pain in right knee (principal); Z11.8 Encounter for screening for other infectious and parasitic diseases

== ENCOUNTER 2016-12-23 10:00 | Inpatient (IN) | payer MEDICARE, MEDICAID ==
[~2016-12-23] VITALS: Ht 162.6 cm; Wt 59.1 kg
[2017-01-06] MEDS ORDERED: ADVAIR 500/501 DISK INH (11:11)
[2017-01-06 12:28] LABS: BASOPHILS 0.3 % (0-2); EOSINOPHILS 3.6 % (0-7); HEMATOCRIT 36.6 % (36.0-48.0); HEMOGLOBIN 12.1 g/dL (12-16); IMMATURE GRANULOCYTES 0.3 % (0-5); LYMPHOCYTES 21.8 % (15-50); MCH 29.8 pg (26.0-34.0); MCHC 33.1 g/dL (31.0-37.0); MCV 90.1 fL (80.0-100.0); MONOCYTES 9.5 % (2-11); NEUTROPHILS 64.5 % (40-80); RBC 4.06 10x6/uL (4.00-5.40); RDW 15.2 % (11.5-14.5); WBC 7.3 10x3/uL (4.8-10.8)
[2017-01-06 12:41] LABS: PLATELET COUNT 302 10x3/uL (130-400)
[2017-01-06 12:44] LABS: CALC OSMOLALITY 264 mosm/kg (275-300); CALCIUM 8.5 mg/dL (8.5-10.1); CARBON DIOXIDE 24.4 mmol/L (21.0-32.0); CHLORIDE - SERUM 98 mmol/L (98-107); CREATININE - SERUM 0.8 mg/dL (0.6-1.3); GLUCOSE 113 mg/dL (74-106); SODIUM 130 mmol/L (136-145); UREA NITROGEN 20 mg/dL (7-18); eGFR NON AFRICAN AMERICAN 78 mL/min (90-120)
[2017-01-06 13:06] LABS: APTT 24.6 SECONDS (22.8-39.4); INR 0.96 (0.85-1.17); PROTIME 12.6 SECONDS (11.6-15.0)
[2017-01-11 05:56] VITALS: BP 116/69; BMI 25.8
[2017-01-11 07:47] LABS: APPEARANCE HAZY (CLEAR); BILIRUBIN NEGATIVE (NEGATIVE); COLOR YELLOW (YELLOW); GLUCOSE NEGATIVE (NEGATIVE); KETONE NEGATIVE (NEGATIVE); LEUKOCYTE ESTERASE TRACE (NEGATIVE); NITRITE NEGATIVE (NEGATIVE); PROTEIN NEGATIVE (NEGATIVE); SPECIFIC GRAVITY 1.015 (1.005-1.020); UROBILINOGEN NORMAL (NORMAL)
[2017-01-11 07:48] LABS: BACTERIA MODERATE /hpf (NONE SEEN); EPITHELIAL CELLS 0-5 /hpf (0-5); MUCUS <1+ /lpf (NONE SEEN); WHITE CELLS - URINE OCC /hpf (0-5)
[2017-01-11 10:35] VITALS: BP 126/59
--- NOTE | 2017-01-11 10:55 | NUR ---
RECIEVED FROM RECOVERY VIA BED AWAKE AND ALERT ORINETD X 3 SHIVERING AND COMPLAINT OF COLD ASKED THIS NURSE IF SHE CAN GET OUT OF BED TO WHEELCHAIR TO DOWNSTAIRS WITH FRIEND. EXPLAIND THAT SHE IS LESS THAN AN HOUR POST OP AND IT WAS IN HER BEST INTEREST TO REMAIN IN BED AT THIS TIME SHE HAD A BLOCK PER ANESTHESIA.
[2017-01-11 10:58] VITALS: BP 170/90; Ht 162.6 cm; Wt 59.1 kg
[2017-01-11] MEDS ORDERED: IPRAT-ALBUT 0.5-3 ML UPD (14:47)
--- NOTE | 2017-01-11 18:12 | NUR ---
PT NOTED PER THIS NURSER TO BE UP IN WHEELCHAIR WITH FAMILY MEMBER RETURNING FROM OUTSIDE SMELLING LIKE CIGARETTE SMOKE. PT HAS ASKED REPEATEDLY TO GET UP TO GO OUTSIDE SINCE HER 11 AM RETURN FROM SURGERY TOLD PT THAT IT WAS NOT SAFE FOR HER TO GET UP THIS SOON AFTER SURGERY AND PUT NEW KNEE IN BENT POSITION PT UP WITH NO ASSISTANCE AND NO PRIOR KNOWLEDE OF THIS NURSE AND WENT OUTSIDE WITH FAMILY WITH WHEELCHAIR FROM DOWNSTAIRS. EXPLAINED TO PT THAT THIS WAS RISKY BEHAVIOR AND THAT IT WAS DANGEROUS TO SMOKE WITH NICOTINE PATCH IN PLCE IT COULD CAUSE STROKE OR HEART ATTACK WELL INCREASE RISK FOR DVT.
[2017-01-11 19:00] VITALS: BP 116/62
--- NOTE | 2017-01-11 22:05 | NUR ---
1950)requesting pain pill as reported per lead former. entered room patient not in room.
--- NOTE | 2017-01-11 22:08 | NUR ---
2005)returned to room.via w/c instructed this day of surgery please stay in room that was purpose of nicotine patch.reinforced complications that could occur from smoking with patch on. will continue to monitor neurovascular status and follow current plan of care.
--- NOTE | 2017-01-12 02:00 | NUR ---
PT IN BED WITH NURSE IN ROOM ADRESSING NEEDS. SIDE RAILS UP X 2. BED IS LOW. CALL LIGHT IS IN REACH. VISITOR AT THE BEDSIDE.
[2017-01-12 04:00] VITALS: BP 131/497
[2017-01-12 06:35] LABS: HEMATOCRIT 31.5 % (36.0-48.0); HEMOGLOBIN 10.4 g/dL (12-16); MCH 29.5 pg (26.0-34.0); MCV 89.2 fL (80.0-100.0); MEAN PLATELET VOLUME 10.2 fL (7.4-10.4); RBC 3.53 10x6/uL (4.00-5.40); RDW 14.9 % (11.5-14.5); WBC 6.2 10x3/uL (4.8-10.8)
--- NOTE | 2017-01-12 07:40 | NUR ---
PT AOX4 RESP EVEN AND NONLABORED PT DENIES NEEDS AT THIS TIME IV TO RIGHT FOREARM PATENT AND INTACT AT THIS TIME SRX2 BED AT LOWEST SETTING CALL LIGHT WITHIN REACH WILL CONTINUE TO MONITOR
[2017-01-12 09:03] VITALS: BP 145/78
--- NOTE | 2017-01-12 10:08 | NUR ---
Patient Name: CHARLOTTE GARCIA Admission Status: Elective Accout number: [id number] Admission Date: 01-11-2017 : 1960 Admission Diagnosis: Attending: MARTINEZ Current LOS: 1 Anticipated DC Date: 01-14-2017 Planned Disposition: Home with Home Health Primary Insurance: [facility] Discharge Planning Comments: CM MET WITH PATIENT REGARDING D/C NEEDS AND PLANS. PATIENT STATED SHE LIVES WITH A FRIEND (ANURAG TRAN) AND HE WILL DRIVE HER HOME AT DISCHARGE. PATIENT STATED THERE ARE 4 STEPS W/RAILS TO ENTER HOME AND NO STAIRS INSIDE HOME. PATIENT IS INDEPENDENT WITH HER CARE AND HAS A WALKER, CANE, NEBULIZER, GLUCOMETER, AND O2 (2L) AT HOME. PATIENT CHECKS HER SUGAR 2X DAILY. PATIENT SIGNED THE MARJ FORM FOR [facility]. PCP DR. SJ CARDENAS ([place]) PHARMACY IS [facility] [address]- [phone] ANURAG TRAN (FRIEND) [phone] National Coverage Specialist: Madai Cloud Is the patient Alert and Oriented? Yes 0 * How many steps to enter\exit or inside your home? 4 W/RAILS 0 * PCP DR. Camron CARDENAS AT [place] [facility] * Pharmacy [facility] * Preadmission Environment Home with Family 0 * ADLs Independent 0 * Equipment Cane Glucometer Nebulizer Oxygen Walker 0 * List name and contact numbers for known caregivers / representatives who currently or will assist patient after discharge: ANURAG (FRIEND AND ROOMMATE) [phone] * Community resources currently utilized None 0 * Additional services required to return to the preadmission environment? Yes 0 * Can the patient safely return to the preadmission environment? Yes 0 * Has this patient been hospitalized within the prior 30 days at any hospital? No 0 Grand Total: 0
[2017-01-12 12:05] VITALS: BP 136/72
--- NOTE | 2017-01-12 20:36 | NUR ---
REC'D. AT [facility] OF SHIFT.COMING BACK TO RM.FROM SMOKING. BRACE NOT ON INSTRUCTED INSTRUCTED BRACE TO BE ON WHEN UP AT ALL TIMES. ACEWRAP INTACT WITH SM. AMT. SWELLING TO FOOT AND ANKLE FOOT PINK AND WARM PEDAL PULSE PRESENT WIGGLE TOES AND DORSIFLEXES WITHOUT DIFFICULTY WILL CONTINUE TO MONITOR FOR ANY CHGES. IN NEUROVASCULAR STATUS AND FOLLOW CURRENT PLAN OF CARE
[2017-01-12 23:59] VITALS: BP 129/71
--- NOTE | 2017-01-13 02:00 | NUR ---
PT IN BED WITH NO DISTRESS. RESPIRATIONS EVEN AND UNLABORED. SIDE RAILS X 2. BED IS LOW. CALL LIGHT IN REACH.
[2017-01-13 06:20] LABS: HEMATOCRIT 32.3 % (36.0-48.0); HEMOGLOBIN 10.7 g/dL (12-16); MCH 29.6 pg (26.0-34.0); MCHC 33.1 g/dL (31.0-37.0); MCV 89.2 fL (80.0-100.0); MEAN PLATELET VOLUME 10.9 fL (7.4-10.4); RBC 3.62 10x6/uL (4.00-5.40); RDW 14.5 % (11.5-14.5); WBC 5.4 10x3/uL (4.8-10.8)
--- NOTE | 2017-01-13 07:55 | NUR ---
PT NOT IN ROOM AT THIS TIME WILL COME BACK FOR ASSESSMENT
[2017-01-13 09:33] VITALS: BP 149/57
[2017-01-13] MEDS ORDERED: ELIQUIS2.5 MG PO ×2 (13:09→13:13)
[2017-01-13] MEDS ORDERED: PERCOCET 10/3251 TA1 PO (13:13)
[2017-01-13 13:40] VITALS: BP 118/56
--- NOTE | 2017-01-13 14:08 | NUR ---
CM REASSESSMENT NOTE: PATIENT IS DISCHARGING HOME/FRIEND DRIVING HER. SIGNED MARJ WITH [facility] [facility] SERVED
--- NOTE | 2017-01-13 14:09 | NUR ---
IV DISCONTINUED WITH CATHETER INTACT AT THIS TIME
--- NOTE | 2017-01-13 15:13 | NUR ---
PT GIVEN TWO PAPER PRESCRIPTIONS AT THIS TIME. PT GIVEN DISCHARGE INSTRUCTIONS AT THIS TIME PT TAKEN VIA WHEELCHAIR VIA PRIVATE VEHICLE AT THIS TIME
--- NOTE | 2017-01-14 19:16 | OP ---
PATIENT NAME: CHARLOTTE GACRIA MEDICAL RECORD: [id number] :60 LOCATION:D.MS [address]2232 ADMISSION DATE:01/11/17 SURGEON: PRASAD CARPENTER MD DATE OF OPERATION: 01/11/2017 PREOPERATIVE DIAGNOSIS: Painful total knee arthroplasty of the right knee. POSTOPERATIVE DIAGNOSIS: Painful total knee arthroplasty of the right knee. PROCEDURE: Right total knee arthroplasty revision. SURGEON: Prasad Carpenter MD. ANESTHESIA: General. INTRAOPERATIVE COMPLICATIONS: None. SUMMARY OF PATHOLOGIC FINDINGS: The patient had loosening of primarily the tibial component. An entire revision was performed both the distal femoral and proximal tibial component. IMPLANTS USED: [employer] triathlon total stabilized implant. Basically, a #4 with 150mm offset stem in the femur, #4 with the 100 mm offset stem in the tibia and 16 polyethylene insert. ESTIMATED BLOOD LOSS: Minimal. OPERATIVE SUMMARY IN DETAIL: After obtaining the appropriate preoperative orthopedic surgery consent as well as anesthetic consultation, evaluation and clearance, the patient was brought to the operating room and placed on the operating table in supine position. After general laryngeal mask airway was administered, a tourniquet was placed about the proximal aspect of the right lower extremity. Right lower extremity was then prepped and draped in routine sterile fashion. The leg was elevated and exsanguinated, tourniquet inflated to 350 mmHg. Previously utilized incision was taken down to the level of the prosthesis. A paramedian arthrotomy was performed. The distal femur was taken off with very minimal bone loss. Proximal tibia likewise was taken off with very minimal bone loss as it did seem to be the loose component. Distal chamfer cuts were made as was the distal femoral box. The tibia cleanup cut was made. Trials were then put into place corresponding to the above final component, taken through a range of motion and found to be stable in all planes. Trials were removed. The knee was copiously irrigated in pulsatile lavage fashion. Final components were then assembled on the back table and then cemented into place. The knee was taken through a range of motion after all cement was hard. Excellent tracking and good overall stability in all planes was noticed. Paramedian arthrotomy was closed with the #2 Ethibond followed by #1 Vicryl, 2-0 Vicryl and skin kehinde. Sterile dressings were applied. The patient was awakened and taken to recovery room in stable condition. All final needle and sponge counts were correct. TRANSINT:[id number] Voice Confirmation ID: [id number] DOCUMENT ID: [id number] OPERATIVE REPORT [id number] CHARLOTTE GARCIA MD, PRASAD AKERS at 1916 CC: [id number] DICTATION DATE: 01/11/17 0939 CONTINUOUS STILL OPERATOR: 01/11/17 1124 DIS IN 01/13/17 [address] [place] [address]
== END 2017-01-13 15:15 | disposition home health service (06) | DRG 468 ==
LOC: D.SDCHOLD 01-11 05:15 → D.MS 01-11 05:15 → D.M2 01-11 08:45 → D.MS 01-11 10:16 → D.SDCHOLD 01-11 11:04 → D.MS 01-11 11:05
PROVIDERS: ADMIT Orthopaedic Surgery
PROC: 0SPC09Z Removal of Liner from Right Knee Joint, Open Approach (ICD-10-PCS; 2017-01-11)
PROC: 0SPC0JZ Removal of Synthetic Substitute from Right Knee Joint, Open Approach (ICD-10-PCS; 2017-01-11)
PROC: 0SUC09Z Supplement Right Knee Joint with Liner, Open Approach (ICD-10-PCS; 2017-01-11)
PROC: 0SRC0J9 Replacement of Right Knee Joint with Synthetic Substitute, Cemented, Open Approach (ICD-10-PCS; principal; 2017-01-11 08:45)
DX: T84.84XA Pain due to internal orthopedic prosthetic devices, implants and grafts, initial encounter (principal); T84.032A Mechanical loosening of internal right knee prosthetic joint, initial encounter; I10 Essential (primary) hypertension; J44.9 Chronic obstructive pulmonary disease, unspecified; E11.9 Type 2 diabetes mellitus without complications; Z79.84 Long term (current) use of oral hypoglycemic drugs; M81.0 Age-related osteoporosis without current pathological fracture; F17.200 Nicotine dependence, unspecified, uncomplicated

== ENCOUNTER 2016-12-25 18:17 | Emergency (ER) | payer MEDICARE, MEDICAID ==
[2016-12-02 12:08] VITALS: BMI 25.8
== END 2016-12-25 20:29 | disposition left against medical advice (07) ==
LOC: D.ER 18:17
DX: R56.9 Unspecified convulsions (principal)

== ENCOUNTER → 2016-12-28 08:25 | Outpatient (CLI) | payer MEDICARE, MEDICAID ==
[2016-12-02 12:08] VITALS: BMI 25.8
== END | disposition home or self-care (01) ==
LOC: D.MAMMO 08:25
DX: Z12.31 Encounter for screening mammogram for malignant neoplasm of breast (principal)

== ENCOUNTER 2017-01-05 09:20 | Emergency (ER) | payer MEDICARE, MEDICAID ==
[2016-12-02 12:08] VITALS: BMI 25.8
[2017-01-06] MEDS ORDERED: ADVAIR 500/501 DISK INH (11:11)
== END 2017-01-05 11:31 | disposition home or self-care (01) ==
LOC: D.ER 09:20
DX: R56.9 Unspecified convulsions (principal); J44.9 Chronic obstructive pulmonary disease, unspecified; E11.9 Type 2 diabetes mellitus without complications; F17.200 Nicotine dependence, unspecified, uncomplicated

== ENCOUNTER 2017-01-16 10:03 | Emergency (ER) | payer MEDICARE, MEDICAID ==
[2017-01-11 10:58] VITALS: BMI 22.3
[~2017-01-16 10:03] MED LIST changes: +ELIQUIS2.5 MG PO
[2017-01-16 11:35] LABS: BASOPHILS 0.7 % (0-2); EOSINOPHILS 10.9 % (0-7); HEMATOCRIT 33.2 % (36.0-48.0); IMMATURE GRANULOCYTES 0.4 % (0-5); LYMPHOCYTES 28.2 % (15-50); MCH 29.1 pg (26.0-34.0); MCHC 33.1 g/dL (31.0-37.0); MCV 87.8 fL (80.0-100.0); MEAN PLATELET VOLUME 10.7 fL (7.4-10.4); MONOCYTES 8.7 % (2-11); NEUTROPHILS 51.1 % (40-80); PLATELET COUNT 293 10x3/uL (130-400); RBC 3.78 10x6/uL (4.00-5.40); RDW 14.4 % (11.5-14.5); WBC 5.4 10x3/uL (4.8-10.8)
[2017-01-16 11:39] LABS: CALC OSMOLALITY 274 mosm/kg (275-300); CALCIUM 8.6 mg/dL (8.5-10.1); CARBON DIOXIDE 23.9 mmol/L (21.0-32.0); CHLORIDE - SERUM 103 mmol/L (98-107); CREATININE - SERUM 0.6 mg/dL (0.6-1.3); GLUCOSE 98 mg/dL (74-106); POTASSIUM - SERUM 3.8 mmol/L (3.5-5.1); SODIUM 137 mmol/L (136-145); UREA NITROGEN 14 mg/dL (7-18); eGFR NON AFRICAN AMERICAN > 90 mL/min (90-120)
[2017-01-16 11:40] LABS: APTT 20.4 SECONDS (22.8-39.4); D-DIMER-QUANTITATIVE 3.54 ug/mLFEU (0.20-0.54)
[2017-01-16 11:41] LABS: INR 0.93 (0.85-1.17); PROTIME 12.3 SECONDS (11.6-15.0)
== END 2017-01-16 14:01 | disposition home or self-care (01) ==
LOC: D.ER 10:03
PROVIDERS: Nurse Practitioner Acute Care
DX: J44.1 Chronic obstructive pulmonary disease with (acute) exacerbation (principal); G89.18 Other acute postprocedural pain; E11.9 Type 2 diabetes mellitus without complications; F17.200 Nicotine dependence, unspecified, uncomplicated

== ENCOUNTER 2017-01-17 23:49 | Emergency (ER) | payer MEDICARE, MEDICAID ==
[2017-01-11 10:58] VITALS: BMI 22.3
[2017-01-18 00:38] LABS: BASOPHILS 0.6 % (0-2); EOSINOPHILS 6.7 % (0-7); HEMATOCRIT 32.7 % (36.0-48.0); IMMATURE GRANULOCYTES 0.4 % (0-5); LYMPHOCYTES 38.1 % (15-50); MCH 29.6 pg (26.0-34.0); MCHC 33.6 g/dL (31.0-37.0); MCV 87.9 fL (80.0-100.0); MEAN PLATELET VOLUME 9.7 fL (7.4-10.4); MONOCYTES 7.4 % (2-11); NEUTROPHILS 46.8 % (40-80); RBC 3.72 10x6/uL (4.00-5.40); RDW 14.6 % (11.5-14.5)
[2017-01-18 00:41] LABS: PLATELET COUNT 374 10x3/uL (130-400); WBC 6.9 10x3/uL (4.8-10.8)
[2017-01-18 01:22] LABS: ALBUMIN 3.6 g/dL (3.4-5.0); ALKALINE PHOSPHATASE 66 U/L (46-116); ALT (SGPT) 17 U/L (10-68); AMYLASE - SERUM 41 U/L (25-115); CALC OSMOLALITY 281 mosm/kg (275-300); CALCIUM 9.7 mg/dL (8.5-10.1); CARBON DIOXIDE 21.4 mmol/L (21.0-32.0); CHLORIDE - SERUM 103 mmol/L (98-107); CREATININE - SERUM 0.6 mg/dL (0.6-1.3); GLUCOSE 96 mg/dL (74-106); LIPASE 117 U/L (73-393); SODIUM 141 mmol/L (136-145); UREA NITROGEN 16 mg/dL (7-18); eGFR NON AFRICAN AMERICAN > 90 mL/min (90-120)
[2017-01-18 01:25] LABS: POTASSIUM - SERUM 3.1 mmol/L (3.5-5.1)
== END 2017-01-18 01:44 | disposition home or self-care (01) ==
LOC: D.ER 23:49
PROVIDERS: Emergency Medicine
DX: R11.10 Vomiting, unspecified (principal); E11.9 Type 2 diabetes mellitus without complications; J44.9 Chronic obstructive pulmonary disease, unspecified; R11.0 Nausea

== ENCOUNTER 2017-01-18 13:47 | Emergency (ER) | payer MEDICARE, MEDICAID ==
[2017-01-11 10:58] VITALS: BMI 22.3
== END 2017-01-18 16:20 | disposition home or self-care (01) ==
LOC: D.ER 13:47
DX: J44.9 Chronic obstructive pulmonary disease, unspecified (principal); E11.9 Type 2 diabetes mellitus without complications; Z79.4 Long term (current) use of insulin; Z98.890 Other specified postprocedural states; R56.9 Unspecified convulsions; F17.200 Nicotine dependence, unspecified, uncomplicated

== ENCOUNTER → 2017-01-19 | Emergency (ER) | payer MEDICARE, MEDICAID ==
[2017-01-11 10:58] VITALS: BMI 22.3
== END | disposition home or self-care (01) ==
LOC: D.ER 23:59
DX: Z02.9 Encounter for administrative examinations, unspecified (principal)

== ENCOUNTER → 2017-01-20 10:01 | Outpatient (CLI) | payer MEDICARE, MEDICAID ==
[2017-01-11 10:58] VITALS: BMI 22.3
== END | disposition home or self-care (01) ==
LOC: D.US 10:01 → D.CT 13:00
DX: R22.41 Localized swelling, mass and lump, right lower limb (principal); R41.82 Altered mental status, unspecified

== ENCOUNTER → 2017-02-02 16:21 | Outpatient (CLI) | payer MEDICARE, MEDICAID ==
[2017-01-11 10:58] VITALS: BMI 22.3
[2017-02-02 18:56] LABS: BASOPHILS 0.9 % (0-2); EOSINOPHILS 7.8 % (0-7); HEMATOCRIT 38.6 % (36.0-48.0); HEMOGLOBIN 13.1 g/dL (12-16); IMMATURE GRANULOCYTES 0.2 % (0-5); LYMPHOCYTES 25.8 % (15-50); MCH 29.4 pg (26.0-34.0); MCHC 33.9 g/dL (31.0-37.0); MCV 86.7 fL (80.0-100.0); MEAN PLATELET VOLUME 10.8 fL (7.4-10.4); MONOCYTES 6.9 % (2-11); NEUTROPHILS 58.4 % (40-80); PLATELET COUNT 329 10x3/uL (130-400); RBC 4.45 10x6/uL (4.00-5.40); RDW 14.9 % (11.5-14.5); WBC 4.6 10x3/uL (4.8-10.8)
[2017-02-02 19:20] LABS: ANION GAP 17.7 mmol/L (8-16); CALCIUM 9.4 mg/dL (8.5-10.1); CARBON DIOXIDE 24.4 mmol/L (21.0-32.0); CREATININE - SERUM 0.9 mg/dL (0.6-1.3); POTASSIUM - SERUM 4.1 mmol/L (3.5-5.1)
== END | disposition home or self-care (01) ==
LOC: D.LABREF 16:21
PROVIDERS: Orthopaedic Surgery
DX: R53.1 Weakness (principal)

== ENCOUNTER 2017-02-18 11:04 | Emergency (ER) | payer MEDICARE, MEDICAID ==
[2017-01-11 10:58] VITALS: BMI 22.3
[2017-02-18 12:18] LABS: BASOPHILS 0.3 % (0-2); EOSINOPHILS 3.7 % (0-7); HEMOGLOBIN 13.1 g/dL (12-16); IMMATURE GRANULOCYTES 0.2 % (0-5); LYMPHOCYTES 24.3 % (15-50); MCH 30.1 pg (26.0-34.0); MCHC 33.6 g/dL (31.0-37.0); MCV 89.7 fL (80.0-100.0); MONOCYTES 6.3 % (2-11); NEUTROPHILS 65.2 % (40-80); PLATELET COUNT 355 10x3/uL (130-400); RBC 4.35 10x6/uL (4.00-5.40); RDW 14.8 % (11.5-14.5); WBC 5.7 10x3/uL (4.8-10.8)
[2017-02-18 12:31] LABS: ALBUMIN 3.9 g/dL (3.4-5.0); ALKALINE PHOSPHATASE 92 U/L (46-116); ALT (SGPT) 19 U/L (10-68); CALCIUM 9.7 mg/dL (8.5-10.1); CHLORIDE - SERUM 101 mmol/L (98-107); CREATININE - SERUM 0.7 mg/dL (0.6-1.3); POTASSIUM - SERUM 4.6 mmol/L (3.5-5.1); PROTEIN - SERUM 8.1 g/dL (6.4-8.2); SODIUM 136 mmol/L (136-145); UREA NITROGEN 19 mg/dL (7-18); eGFR NON AFRICAN AMERICAN > 90 mL/min (90-120)
[2017-02-18 12:34] LABS: CREATINE KINASE 44 UL (21-215)
[2017-02-18 12:39] LABS: CALC OSMOLALITY 273 mosm/kg (275-300); GLUCOSE 90 mg/dL (74-106); TROPONIN-I < 0.017 ng/mL (0.000-0.060)
== END 2017-02-18 13:15 | disposition home or self-care (01) ==
LOC: D.ER 11:04
PROVIDERS: Emergency Medicine
DX: R06.00 Dyspnea, unspecified (principal); W19.XXXA Unspecified fall, initial encounter; Y93.89 Activity, other specified; Y92.029 Unspecified place in mobile home as the place of occurrence of the external cause; J44.9 Chronic obstructive pulmonary disease, unspecified; E11.9 Type 2 diabetes mellitus without complications; M25.561 Pain in right knee

== ENCOUNTER 2017-02-19 02:05 | Emergency (ER) | payer MEDICARE, MEDICAID ==
[2017-01-11 10:58] VITALS: BMI 22.3
[2017-02-19 02:26] LABS: BASOPHILS 0.3 % (0-2); EOSINOPHILS 4.7 % (0-7); HEMATOCRIT 35.4 % (36.0-48.0); HEMOGLOBIN 11.9 g/dL (12-16); IMMATURE GRANULOCYTES 0.2 % (0-5); LYMPHOCYTES 23.7 % (15-50); MCH 29.5 pg (26.0-34.0); MCHC 33.6 g/dL (31.0-37.0); MCV 87.8 fL (80.0-100.0); MEAN PLATELET VOLUME 9.7 fL (7.4-10.4); MONOCYTES 7.8 % (2-11); NEUTROPHILS 63.3 % (40-80); PLATELET COUNT 387 10x3/uL (130-400); RBC 4.03 10x6/uL (4.00-5.40); RDW 14.8 % (11.5-14.5); WBC 6.4 10x3/uL (4.8-10.8)
[2017-02-19 02:39] LABS: ALBUMIN 3.4 g/dL (3.4-5.0); ALKALINE PHOSPHATASE 88 U/L (46-116); ALT (SGPT) 18 U/L (10-68); BILIRUBIN - TOTAL 0.23 mg/dL (0.2-1.3); CALC OSMOLALITY 270 mosm/kg (275-300); CALCIUM 8.9 mg/dL (8.5-10.1); CARBON DIOXIDE 23.7 mmol/L (21.0-32.0); CHLORIDE - SERUM 99 mmol/L (98-107); CREATININE - SERUM 0.8 mg/dL (0.6-1.3); GLUCOSE 132 mg/dL (74-106); PROTEIN - SERUM 7.3 g/dL (6.4-8.2); SODIUM 132 mmol/L (136-145); UREA NITROGEN 23 mg/dL (7-18); eGFR NON AFRICAN AMERICAN 78 mL/min (90-120)
[2017-02-19 02:44] LABS: POTASSIUM - SERUM 3.9 mmol/L (3.5-5.1)
[2017-02-19 02:56] LABS: CKMB 0.3 U/L (0.0-3.6); CREATINE KINASE 60 UL (21-215)
[2017-02-19 02:59] LABS: TROPONIN-I < 0.017 ng/mL (0.000-0.060)
[2017-02-19 03:06] LABS: APPEARANCE CLEAR (CLEAR); BILIRUBIN NEGATIVE (NEGATIVE); COLOR YELLOW (YELLOW); GLUCOSE NEGATIVE (NEGATIVE); KETONE NEGATIVE (NEGATIVE); NITRITE NEGATIVE (NEGATIVE); PROTEIN NEGATIVE (NEGATIVE); UROBILINOGEN NORMAL (NORMAL)
[2017-02-19 03:25] LABS: UDS - AMPHET NEGATIVE QUAL (NEGATIVE); UDS - BARB NEGATIVE QUAL (NEGATIVE); UDS - BENZO NEGATIVE QUAL (NEGATIVE); UDS - COCAINE NEGATIVE QUAL (NEGATIVE); UDS - OPIATE POSITIVE QUAL (NEGATIVE); UDS - PCP NEGATIVE QUAL (NEGATIVE); UDS - THC NEGATIVE QUAL (NEGATIVE)
== END 2017-02-19 04:43 | disposition home or self-care (01) ==
LOC: D.ER 02:05
PROVIDERS: Emergency Medicine
DX: R07.9 Chest pain, unspecified (principal); J44.9 Chronic obstructive pulmonary disease, unspecified; E11.9 Type 2 diabetes mellitus without complications; F17.200 Nicotine dependence, unspecified, uncomplicated

== ENCOUNTER 2017-03-29 21:00 | Emergency (ER) | payer MEDICARE, MEDICAID ==
[2017-01-11 10:58] VITALS: BMI 22.3
[2017-03-29 21:37] LABS: BASOPHILS 0.2 % (0-2); EOSINOPHILS 3.9 % (0-7); HEMATOCRIT 29.4 % (36.0-48.0); HEMOGLOBIN 9.9 g/dL (12-16); IMMATURE GRANULOCYTES 0.2 % (0-5); LYMPHOCYTES 24.2 % (15-50); MCHC 33.7 g/dL (31.0-37.0); MCV 86.2 fL (80.0-100.0); MEAN PLATELET VOLUME 9.2 fL (7.4-10.4); MONOCYTES 8.3 % (2-11); NEUTROPHILS 63.2 % (40-80); PLATELET COUNT 314 10x3/uL (130-400); RBC 3.41 10x6/uL (4.00-5.40); RDW 15.1 % (11.5-14.5); WBC 6.1 10x3/uL (4.8-10.8)
[2017-03-29 21:59] LABS: ALBUMIN 2.8 g/dL (3.4-5.0); ALKALINE PHOSPHATASE 82 U/L (46-116); ALT (SGPT) 18 U/L (10-68); BILIRUBIN - TOTAL 0.11 mg/dL (0.2-1.3); CALC OSMOLALITY 278 mosm/kg (275-300); CALCIUM 8.7 mg/dL (8.5-10.1); CARBON DIOXIDE 20.3 mmol/L (21.0-32.0); CHLORIDE - SERUM 106 mmol/L (98-107); CREATININE - SERUM 0.8 mg/dL (0.6-1.3); GLUCOSE 87 mg/dL (74-106); POTASSIUM - SERUM 3.6 mmol/L (3.5-5.1); PROTEIN - SERUM 6.4 g/dL (6.4-8.2); SODIUM 139 mmol/L (136-145); UREA NITROGEN 18 mg/dL (7-18); eGFR NON AFRICAN AMERICAN 78 mL/min (90-120)
== END 2017-03-29 23:27 | disposition home or self-care (01) ==
LOC: D.ER 21:00
PROVIDERS: Family Medicine
DX: J44.9 Chronic obstructive pulmonary disease, unspecified (principal); M25.562 Pain in left knee; M25.561 Pain in right knee; D64.9 Anemia, unspecified; F17.200 Nicotine dependence, unspecified, uncomplicated

== ENCOUNTER 2017-04-19 02:09 | Emergency (ER) | payer MEDICARE, MEDICAID ==
[2017-01-11 10:58] VITALS: BMI 22.3
[2017-04-19 02:54] LABS: ALBUMIN 3.5 g/dL (3.4-5.0); ALKALINE PHOSPHATASE 93 U/L (46-116); ALT (SGPT) 23 U/L (10-68); BILIRUBIN - TOTAL 0.32 mg/dL (0.2-1.3); CALC OSMOLALITY 269 mosm/kg (275-300); CALCIUM 9.7 mg/dL (8.5-10.1); CARBON DIOXIDE 23.9 mmol/L (21.0-32.0); CHLORIDE - SERUM 97 mmol/L (98-107); CREATININE - SERUM 0.5 mg/dL (0.6-1.3); GLUCOSE 97 mg/dL (74-106); POTASSIUM - SERUM 4.3 mmol/L (3.5-5.1); PROTEIN - SERUM 8.1 g/dL (6.4-8.2); SODIUM 134 mmol/L (136-145); UREA NITROGEN 17 mg/dL (7-18); eGFR NON AFRICAN AMERICAN > 90 mL/min (90-120)
[2017-04-19 03:04] LABS: BASOPHILS 0.4 % (0-2); EOSINOPHILS 2.9 % (0-7); HEMATOCRIT 34.3 % (36.0-48.0); HEMOGLOBIN 11.5 g/dL (12-16); IMMATURE GRANULOCYTES 0.2 % (0-5); LYMPHOCYTES 30.6 % (15-50); MCH 29.6 pg (26.0-34.0); MCHC 33.5 g/dL (31.0-37.0); MCV 88.2 fL (80.0-100.0); MEAN PLATELET VOLUME 9.6 fL (7.4-10.4); MONOCYTES 8.1 % (2-11); NEUTROPHILS 57.8 % (40-80); PLATELET COUNT 352 10x3/uL (130-400); RBC 3.89 10x6/uL (4.00-5.40); RDW 15.8 % (11.5-14.5); WBC 5.1 10x3/uL (4.8-10.8)
[2017-04-19 03:05] LABS: CHOL - HDL RATIO 2.6 ratio (2.3-4.1); CHOLESTEROL, TOTAL 232 mg/dL (0-200); CKMB 0.4 U/L (0.0-3.6); CREATINE KINASE 62 UL (21-215); HDL CHOLESTEROL 91 mg/dL (32-96); LDL CHOLESTEROL 131 mg/dL (0-100); LDL-HDL RATIO 1.4 ratio (1.5-3.5); TRIGLYCERIDE 52 mg/dL (30-200)
[2017-04-19 03:07] LABS: TROPONIN-I < 0.017 ng/mL (0.000-0.060)
[2017-04-19 03:10] LABS: APPEARANCE CLEAR (CLEAR); BILIRUBIN NEGATIVE (NEGATIVE); COLOR YELLOW (YELLOW); GLUCOSE NEGATIVE (NEGATIVE); KETONE NEGATIVE (NEGATIVE); NITRITE NEGATIVE (NEGATIVE); PROTEIN NEGATIVE (NEGATIVE); SPECIFIC GRAVITY 1.015 (1.005-1.020); UROBILINOGEN NORMAL (NORMAL)
[2017-04-19 03:17] LABS: UDS - AMPHET NEGATIVE QUAL (NEGATIVE); UDS - BARB NEGATIVE QUAL (NEGATIVE); UDS - BENZO NEGATIVE QUAL (NEGATIVE); UDS - COCAINE NEGATIVE QUAL (NEGATIVE); UDS - OPIATE NEGATIVE QUAL (NEGATIVE); UDS - PCP NEGATIVE QUAL (NEGATIVE); UDS - THC NEGATIVE QUAL (NEGATIVE)
== END 2017-04-19 03:42 | disposition home or self-care (01) ==
LOC: D.ER 02:09
PROVIDERS: Family Medicine
DX: R07.89 Other chest pain (principal); J44.1 Chronic obstructive pulmonary disease with (acute) exacerbation; F17.200 Nicotine dependence, unspecified, uncomplicated; R00.0 Tachycardia, unspecified

== ENCOUNTER 2017-04-19 20:35 | Emergency (ER) | payer MEDICARE, MEDICAID ==
[2017-01-11 10:58] VITALS: BMI 22.3
[2017-04-19 22:32] LABS: APPEARANCE CLEAR (CLEAR); COLOR YELLOW (YELLOW); NITRITE NEGATIVE (NEGATIVE); PROTEIN NEGATIVE (NEGATIVE)
[2017-04-19 22:33] LABS: BILIRUBIN NEGATIVE (NEGATIVE); GLUCOSE NEGATIVE (NEGATIVE); KETONE NEGATIVE (NEGATIVE); UROBILINOGEN NORMAL (NORMAL)
[2017-04-19 22:35] LABS: UDS - AMPHET NEGATIVE QUAL (NEGATIVE); UDS - BARB NEGATIVE QUAL (NEGATIVE); UDS - BENZO NEGATIVE QUAL (NEGATIVE); UDS - COCAINE NEGATIVE QUAL (NEGATIVE); UDS - OPIATE NEGATIVE QUAL (NEGATIVE); UDS - PCP NEGATIVE QUAL (NEGATIVE); UDS - THC NEGATIVE QUAL (NEGATIVE)
== END 2017-04-19 22:51 | disposition home or self-care (01) ==
LOC: D.ER 20:35
PROVIDERS: Nurse Practitioner Family
DX: R79.1 Abnormal coagulation profile (principal); Z91.19 Patient's noncompliance with other medical treatment and regimen; Y09 Assault by unspecified means

== ENCOUNTER 2017-05-27 19:29 | Emergency (ER) | payer MEDICARE, MEDICAID ==
[2017-01-11 10:58] VITALS: BMI 22.3
[2017-05-27 20:20] LABS: BASOPHILS 0.2 % (0-2); EOSINOPHILS 2.2 % (0-7); HEMATOCRIT 37.3 % (36.0-48.0); HEMOGLOBIN 12.8 g/dL (12-16); IMMATURE GRANULOCYTES 0.5 % (0-5); LYMPHOCYTES 23.6 % (15-50); MCH 29.8 pg (26.0-34.0); MCHC 34.3 g/dL (31.0-37.0); MCV 86.7 fL (80.0-100.0); MONOCYTES 5.7 % (2-11); NEUTROPHILS 67.8 % (40-80); RDW 14.3 % (11.5-14.5); WBC 6.3 10x3/uL (4.8-10.8)
[2017-05-27 20:22] LABS: PLATELET COUNT 140 10x3/uL (130-400)
[2017-05-27 20:35] LABS: INR 0.92 (0.85-1.17)
[2017-05-27 20:36] LABS: D-DIMER-QUANTITATIVE 2.03 ug/mLFEU (0.20-0.54)
[2017-05-27 20:41] LABS: ALBUMIN 3.5 g/dL (3.4-5.0); ALKALINE PHOSPHATASE 111 U/L (46-116); ALT (SGPT) 18 U/L (10-68); CALC OSMOLALITY 260 mosm/kg (275-300); CALCIUM 9.1 mg/dL (8.5-10.1); CARBON DIOXIDE 22.9 mmol/L (21.0-32.0); CHLORIDE - SERUM 93 mmol/L (98-107); CREATININE - SERUM 0.8 mg/dL (0.6-1.3); GLUCOSE 82 mg/dL (74-106); POTASSIUM - SERUM 3.9 mmol/L (3.5-5.1); PROTEIN - SERUM 7.6 g/dL (6.4-8.2); SODIUM 129 mmol/L (136-145); UREA NITROGEN 21 mg/dL (7-18); eGFR NON AFRICAN AMERICAN 78 mL/min (90-120)
[2017-05-27 20:56] LABS: CHOL - HDL RATIO 2.8 ratio (2.3-4.1); CHOLESTEROL, TOTAL 207 mg/dL (0-200); CKMB 0.4 U/L (0.0-3.6); CREATINE KINASE 84 UL (21-215); HDL CHOLESTEROL 75 mg/dL (32-96); LDL CHOLESTEROL 112 mg/dL (0-100); LDL-HDL RATIO 1.5 ratio (1.5-3.5); PRO BNP 382 pg/mL (0-125); TRIGLYCERIDE 101 mg/dL (30-200); TROPONIN-I < 0.017 ng/mL (0.000-0.060)
== END 2017-05-27 23:59 | disposition home or self-care (01) ==
LOC: D.ER 19:29
PROVIDERS: Family Medicine
DX: R07.9 Chest pain, unspecified (principal); Z57.4 Occupational exposure to toxic agents in agriculture; R51 Headache; F17.200 Nicotine dependence, unspecified, uncomplicated

== ENCOUNTER → 2017-06-01 09:50 | Outpatient (CLI) | payer MEDICARE, MEDICAID ==
[2017-01-11 10:58] VITALS: BMI 22.3
== END | disposition home or self-care (01) ==
LOC: D.LABREF 09:50
DX: R50.9 Fever, unspecified (principal)

== ENCOUNTER 2017-06-15 19:34 | Emergency (ER) | payer MEDICARE, MEDICAID ==
[2017-01-11 10:58] VITALS: BMI 22.3
== END 2017-06-15 21:28 | disposition home or self-care (01) ==
LOC: D.ER 19:34
DX: R51 Headache (principal); F17.200 Nicotine dependence, unspecified, uncomplicated; J44.9 Chronic obstructive pulmonary disease, unspecified

== ENCOUNTER 2017-07-23 16:14 | Emergency (ER) | payer MEDICARE, MEDICAID ==
[2017-01-11 10:58] VITALS: BMI 22.3
== END 2017-07-23 20:55 | disposition home or self-care (01) ==
LOC: D.ER 16:14
DX: G43.909 Migraine, unspecified, not intractable, without status migrainosus (principal); J44.9 Chronic obstructive pulmonary disease, unspecified

== ENCOUNTER 2017-07-26 17:27 | Emergency (ER) | payer MEDICARE, MEDICAID ==
[2017-01-11 10:58] VITALS: BMI 22.3
== END 2017-07-26 19:40 | disposition left against medical advice (07) ==
LOC: D.ER 17:27
DX: R51 Headache (principal)

== ENCOUNTER 2017-09-20 10:44 | Observation (INO) | payer MEDICARE, MEDICAID ==
[~2017-09-20] VITALS: Ht 162.6 cm; Wt 65.8 kg
--- NOTE | ~2017-09-20 | HP ---
PATIENT: CHARLOTTE GARCIA MEDICAL RECORD: [id number] ACCOUNT: [id number] LOCATION:[address] : 60 ADMISSION DATE: 09/20/17 HISTORY AND PHYSICAL EXAMINATION REASON FOR ADMISSION: Vomiting and diarrhea for 2 days with generalized chills and cough. HISTORY OF PRESENT ILLNESS: The patient is a 56-year-old female who is a patient of Dr. Gilbert to the Medicaid clinic. She states one of her nephews had vomiting and diarrhea a few days ago and she developed it. She has had more vomiting than diarrhea, but just felt very fatigued, could not hold any of her meds down and came to the Emergency Room. She denied fever and has chronic cough. She continues to smoke. She has known COPD. She states she has also had subjective fever and dysuria. PAST MEDICAL HISTORY: COPD, nicotine addiction, chronic headaches, history of migraine headaches, history of seizures on any seizure medications, type 2 diabetes mellitus, hypertension, states she had a IA last year, but records show normal cardiac cath per Dr. Valles, osteoarthritis, disability due to osteoarthritis of knees, reactive airway disease with last PFTs 2016 showing FEV1 of 1.75, improved 14% with bronchodilators, and obstructive sleep apnea. PAST SURGICAL HISTORY: She has had 3 revisions and total knee replacement on the left. Anterior cervical fusion, quadriceps muscle rupture with repair. She had a right shoulder rotator cuff repair as well. FAMILY HISTORY: Mother, father, and a 38-year-old brother all from diabetic complications. HOME MEDICATIONS: Singulair 10 mg with evening meal, Promethazine 25 mg q.4 hours for nausea, Lozol 5 mg daily, prednisone dose unknown b.i.d., KCl dose unknown. Advair Diskus 200/50 one puff b.i.d., albuterol hand held updrafts, Lisinopril 40 mg daily, Keppra dose unknown, Lamictal dose unknown, although she says her meds are obtained at [facility]. REVIEW OF SYSTEMS: GENERAL: She has been fatigued for the last 2 days. Denies fever. HEENT: No recent visual change, sinus congestion, sore throat or hearing difficulty. RESPIRATORY: She has had wheezing chronically. She still smokes. She is on home O2. Denies sputum production or hemoptysis. CARDIAC: No exertional or rest chest pain, claudication, or edema. GASTROINTESTINAL: She has had nausea with vomiting and diarrhea for 2 days. Denies abdominal pain, hematemesis, or melena. ENDOCRINE: Denies polyuria, polydipsia, heat or cold intolerance. NEUROLOGIC: No history of stroke, TIA, or vascular headaches. She has history of seizures. PSYCHIATRIC: Denies depressed mood. MUSCULOSKELETAL: Chronic lumbago and cervical neck pain. INTEGUMENT: No rash or itching. PHYSICAL EXAMINATION: GENERAL: The patient is alert and oriented, in no acute distress. VITAL SIGNS: Her temperature is 97.5 orally, pulse 82 and regular, respirations HISTORY AND PHYSICAL [id number] [place] A 20 with audible wheezes. Blood pressure 103/46, sat 99% on room air. Weight 245 pounds, BMI 24.9, height 5 feet 4 inches. HEENT: Normocephalic. Eyes are clear, oropharynx unremarkable. With poor dentition. NECK: Supple without bruits. CHEST: She has expiratory wheezes bilaterally. No retractions. HEART: Regular rate and rhythm without murmur. ABDOMEN: Soft, nontender, no organomegaly. EXTREMITIES: She has postoperative scars over both knees, left greater than right. She has weakness in quadriceps on the left. No peripheral edema. NEUROLOGICAL: Oriented to person, place, and time. Cranial nerves are intact. Gait is not tested. LABORATORY DATA: She has a white count of 8300 with normal diff, H&H is 11.5 and 34.0 respectively. Chemistry shows potassium of 4. Serum CO2 of 13.2, anion gap of 24, BUN of 59, creatinine of 3.3. Her prior creatinine was under 1 on previous admission. Glucose is 84, magnesium 2.2. Liver functions are normal. Cardiac enzymes are negative. ProBNP is 274, minimally elevated. TSH is normal. Amylase and lipase are normal. UA is cloudy with many bacteria, 5-10 epithelial cells, 10-25 white cells. Toxicology is negative. Serum ketones are negative. ABG: pH of 7.26, CO2 of 37.7, pO2 of 90 on room air. Lactic acid 1.44. IMAGING: Chest x-ray, no acute changes of her thoracic calcifications. A V/Q scan showed low probability for PE. ASSESSMENT: 1. Acute renal insufficiency, probably from nausea and vomiting and dehydration. 2. Urinary tract infection. 3. Chronic obstructive pulmonary disease, chronic. 4. History of seizure disorder. 5. Acidosis possibly from acute renal insufficiency and dehydration. 6. Chronic pain syndrome. 7. History of migraine headaches. 8. Essential hypertension. PLAN: We will hold antihypertensives currently. We will hydrate. Resume other home meds as indicated. Placed on broad-spectrum antibiotics. TRANSINT:[id number] Voice Confirmation ID: [id number] DOCUMENT ID: [id number] MURPHY SON MD at 2100 CC: [id number] DICTATION DATE: 09/20/17 185 NEUROCRITICAL CARE PHYSICIAN: 09/20/17 2325 ADM IN [address] [place] [address]
[2017-09-20 11:19] LABS: BASOPHILS 0.2 % (0-2); EOSINOPHILS 2.8 % (0-7); HEMOGLOBIN 11.5 g/dL (12-16); IMMATURE GRANULOCYTES 0.2 % (0-5); LYMPHOCYTES 17.2 % (15-50); MCH 28.7 pg (26.0-34.0); MCHC 33.8 g/dL (31.0-37.0); MCV 84.8 fL (80.0-100.0); MEAN PLATELET VOLUME 9.9 fL (7.4-10.4); MONOCYTES 7.2 % (2-11); NEUTROPHILS 72.4 % (40-80); RBC 4.01 10x6/uL (4.00-5.40); RDW 15.5 % (11.5-14.5); WBC 8.3 10x3/uL (4.8-10.8)
[2017-09-20 11:23] LABS: PLATELET COUNT 356 10x3/uL (130-400)
[2017-09-20 11:30] LABS: APPEARANCE CLOUDY (CLEAR); BACTERIA MANY /hpf (NONE SEEN); BILIRUBIN NEGATIVE (NEGATIVE); COLOR YELLOW (YELLOW); GLUCOSE NEGATIVE (NEGATIVE); HYALINE CAST RARE /lpf (NONE SEEN); KETONE NEGATIVE (NEGATIVE); MUCUS <1+ /lpf (NONE SEEN); NITRITE NEGATIVE (NEGATIVE); PROTEIN 1+ mg/dL (NEGATIVE); RED CELLS - URINE 0-5 /hpf (0-5); SPECIFIC GRAVITY 1.015 (1.005-1.020); UROBILINOGEN NORMAL (NORMAL)
[2017-09-20 11:34] LABS: ALBUMIN 3.6 g/dL (3.4-5.0); ANION GAP 24.4 mmol/L (8-16); BILIRUBIN - TOTAL 0.2 mg/dL (0.2-1.3); CALCIUM 8.5 mg/dL (8.5-10.1); CARBON DIOXIDE 13.2 mmol/L (21.0-32.0); CREATININE - SERUM 3.3 mg/dL (0.6-1.3); POTASSIUM - SERUM 4.6 mmol/L (3.5-5.1); PROTEIN - SERUM 7.8 g/dL (6.4-8.2)
[2017-09-20 11:44] LABS: INR 1.03 (0.85-1.17); KETONE - SERUM NEGATIVE (NEGATIVE); PROTIME 13.2 SECONDS (11.6-15.0)
[2017-09-20 12:00] LABS: MAGNESIUM - SERUM 2.2 mg/dL (1.8-2.4); PRO BNP 274 pg/mL (0-125); THYROID STIMULATING HORMONE 1.22 uIU/mL (0.36-3.74); TROPONIN-I < 0.017 ng/mL (0.000-0.060)
[2017-09-20 18:49] LABS: UDS - AMPHET NEGATIVE QUAL (NEGATIVE); UDS - BARB NEGATIVE QUAL (NEGATIVE); UDS - BENZO NEGATIVE QUAL (NEGATIVE); UDS - COCAINE NEGATIVE QUAL (NEGATIVE); UDS - OPIATE NEGATIVE QUAL (NEGATIVE); UDS - PCP NEGATIVE QUAL (NEGATIVE); UDS - THC NEGATIVE QUAL (NEGATIVE)
[2017-09-21 00:58] VITALS: BP 105/46
[2017-09-21 01:16] VITALS: BMI 24.9
[2017-09-21 04:00] VITALS: BP 92/43
[2017-09-21 05:47] LABS: BASOPHILS 0.4 % (0-2); IMMATURE GRANULOCYTES 0.2 % (0-5); LYMPHOCYTES 27.2 % (15-50); MCH 28.2 pg (26.0-34.0); MCHC 33.3 g/dL (31.0-37.0); MCV 84.7 fL (80.0-100.0); MONOCYTES 7.7 % (2-11); NEUTROPHILS 59.5 % (40-80); PLATELET COUNT 289 10x3/uL (130-400); RBC 3.54 10x6/uL (4.00-5.40); RDW 15.4 % (11.5-14.5); WBC 4.8 10x3/uL (4.8-10.8)
[2017-09-21 06:11] LABS: ALBUMIN 2.8 g/dL (3.4-5.0); BILIRUBIN - TOTAL 0.2 mg/dL (0.2-1.3); PROTEIN - SERUM 6.5 g/dL (6.4-8.2)
[2017-09-21 06:25] LABS: ANION GAP 12.3 mmol/L (8-16); CARBON DIOXIDE 22.6 mmol/L (21.0-32.0); CREATININE - SERUM 1.2 mg/dL (0.6-1.3); POTASSIUM - SERUM 3.9 mmol/L (3.5-5.1)
[2017-09-21 07:43] VITALS: BP 100/50
[2017-09-21 10:41] VITALS: Ht 162.6 cm; Wt 65.8 kg
[2017-09-21 11:21] VITALS: BP 106/38
[2017-09-21 15:19] VITALS: BP 99/45
[2017-09-21 20:00] VITALS: BP 118/66
[2017-09-22] VITALS: BP 129/77
[2017-09-22 04:00] VITALS: BP 128/68
[2017-09-22 05:25] LABS: CALCIUM 8.7 mg/dL (8.5-10.1); CARBON DIOXIDE 25.7 mmol/L (21.0-32.0); CHLORIDE - SERUM 108 mmol/L (98-107); GLUCOSE 107 mg/dL (74-106); POTASSIUM - SERUM 3.7 mmol/L (3.5-5.1); SODIUM 143 mmol/L (136-145)
[2017-09-22 05:29] LABS: CALC OSMOLALITY 286 mosm/kg (275-300); CREATININE - SERUM 0.6 mg/dL (0.6-1.3); UREA NITROGEN 19 mg/dL (7-18); eGFR NON AFRICAN AMERICAN > 90 mL/min (90-120)
[2017-09-22] MEDS ORDERED: CIPRO250 MG PO (07:18)
[2017-09-22] MEDS ORDERED: ZOFRAN ODT4 MG/UDTAB PO (07:18)
[2017-09-22 09:10] VITALS: BP 95/52
== END 2017-09-22 10:21 | disposition home or self-care (01) ==
LOC: D.ER 10:44 → OBSVTIME 19:16 → D.M2 19:16 → D.EDHOLD 19:16 → D.M2 20:33
PROVIDERS: Family Medicine; Nurse Practitioner Family
DX: N17.9 Acute kidney failure, unspecified (principal); N39.0 Urinary tract infection, site not specified; J44.9 Chronic obstructive pulmonary disease, unspecified; E11.9 Type 2 diabetes mellitus without complications; R56.9 Unspecified convulsions; I10 Essential (primary) hypertension; E86.0 Dehydration; E87.2 Acidosis; G89.4 Chronic pain syndrome; I95.9 Hypotension, unspecified; G47.30 Sleep apnea, unspecified; Z72.0 Tobacco use

== ENCOUNTER 2017-09-23 08:55 | Emergency (ER) | payer MEDICARE, MEDICAID ==
[2017-09-21 10:41] VITALS: BMI 24.9
[~2017-09-23 08:55] MED LIST changes: +CIPRO250 MG PO; +ZOFRAN ODT4 MG/UDTAB PO
[2017-09-23 09:24] LABS: BASOPHILS 0.4 % (0-2); EOSINOPHILS 2.2 % (0-7); HEMATOCRIT 33.9 % (36.0-48.0); HEMOGLOBIN 11.4 g/dL (12-16); IMMATURE GRANULOCYTES 0.1 % (0-5); LYMPHOCYTES 18.4 % (15-50); MCH 28.7 pg (26.0-34.0); MCHC 33.6 g/dL (31.0-37.0); MCV 85.4 fL (80.0-100.0); MEAN PLATELET VOLUME 10.1 fL (7.4-10.4); MONOCYTES 6.5 % (2-11); NEUTROPHILS 72.4 % (40-80); PLATELET COUNT 327 10x3/uL (130-400); RBC 3.97 10x6/uL (4.00-5.40); RDW 14.8 % (11.5-14.5); WBC 7.3 10x3/uL (4.8-10.8)
[2017-09-23 09:41] LABS: HCG SERUM NEGATIVE (NEGATIVE)
[2017-09-23 09:47] LABS: ALBUMIN 3.1 g/dL (3.4-5.0); ALKALINE PHOSPHATASE 79 U/L (46-116); ALT (SGPT) 9 U/L (10-68); BILIRUBIN - TOTAL 0.39 mg/dL (0.2-1.3); CALC OSMOLALITY 272 mosm/kg (275-300); CALCIUM 9.5 mg/dL (8.5-10.1); CARBON DIOXIDE 25.2 mmol/L (21.0-32.0); CHLORIDE - SERUM 104 mmol/L (98-107); CREATININE - SERUM 0.5 mg/dL (0.6-1.3); GLUCOSE 94 mg/dL (74-106); MAGNESIUM - SERUM 1.4 mg/dL (1.8-2.4); POTASSIUM - SERUM 4.1 mmol/L (3.5-5.1); PROTEIN - SERUM 7.2 g/dL (6.4-8.2); SODIUM 137 mmol/L (136-145); eGFR NON AFRICAN AMERICAN > 90 mL/min (90-120)
[2017-09-23 09:49] LABS: UREA NITROGEN 11 mg/dL (7-18)
== END 2017-09-23 11:27 | disposition home or self-care (01) ==
LOC: D.ER 08:55
PROVIDERS: Family Medicine
DX: R56.9 Unspecified convulsions (principal); J44.9 Chronic obstructive pulmonary disease, unspecified; E11.9 Type 2 diabetes mellitus without complications; F17.200 Nicotine dependence, unspecified, uncomplicated; R00.0 Tachycardia, unspecified; R51 Headache

== ENCOUNTER 2017-09-25 00:06 | Emergency (ER) | payer MEDICARE, MEDICAID ==
[2017-09-21 10:41] VITALS: BMI 24.9
== END 2017-09-25 01:32 | disposition home or self-care (01) ==
LOC: D.ER 00:06
DX: G40.909 Epilepsy, unspecified, not intractable, without status epilepticus (principal); J44.9 Chronic obstructive pulmonary disease, unspecified; E11.9 Type 2 diabetes mellitus without complications

== ENCOUNTER → 2017-10-07 13:07 | Outpatient (CLI) | payer MEDICARE, MEDICAID ==
[2017-09-21 10:41] VITALS: BMI 24.9
== END | disposition home or self-care (01) ==
LOC: D.LAB 13:07
DX: R56.9 Unspecified convulsions (principal)

== ENCOUNTER 2017-10-07 17:01 | Emergency (ER) | payer MEDICARE, MEDICAID ==
[2017-09-21 10:41] VITALS: BMI 24.9
[2017-10-07 17:39] LABS: BASOPHILS 0.3 % (0-2); EOSINOPHILS 3.4 % (0-7); HEMATOCRIT 31.6 % (36.0-48.0); HEMOGLOBIN 10.5 g/dL (12-16); IMMATURE GRANULOCYTES 0.3 % (0-5); LYMPHOCYTES 20.7 % (15-50); MCH 28.8 pg (26.0-34.0); MCHC 33.2 g/dL (31.0-37.0); MCV 86.6 fL (80.0-100.0); MONOCYTES 6.5 % (2-11); NEUTROPHILS 68.8 % (40-80); PLATELET COUNT 317 10x3/uL (130-400); RBC 3.65 10x6/uL (4.00-5.40); RDW 15.2 % (11.5-14.5); WBC 7.1 10x3/uL (4.8-10.8)
[2017-10-07 17:55] LABS: ALBUMIN 3.2 g/dL (3.4-5.0); ALKALINE PHOSPHATASE 69 U/L (46-116); ALT (SGPT) 13 U/L (10-68); BILIRUBIN - TOTAL 0.18 mg/dL (0.2-1.3); CALC OSMOLALITY 282 mosm/kg (275-300); CALCIUM 8.8 mg/dL (8.5-10.1); CHLORIDE - SERUM 103 mmol/L (98-107); CREATININE - SERUM 1.2 mg/dL (0.6-1.3); POTASSIUM - SERUM 3.9 mmol/L (3.5-5.1); SODIUM 139 mmol/L (136-145); UREA NITROGEN 21 mg/dL (7-18); eGFR NON AFRICAN AMERICAN 49 mL/min (90-120)
[2017-10-07 17:56] LABS: GLUCOSE 143 mg/dL (74-106)
[2017-10-07 18:00] LABS: CREATINE KINASE 41 UL (21-215)
[2017-10-07 18:01] LABS: TROPONIN-I < 0.017 ng/mL (0.000-0.060)
== END 2017-10-07 20:15 | disposition home or self-care (01) ==
LOC: D.ER 17:01
PROVIDERS: Emergency Medicine
DX: S70.01XA Contusion of right hip, initial encounter (principal); W19.XXXA Unspecified fall, initial encounter; Y93.89 Activity, other specified; Y92.012 Bathroom of single-family (private) house as the place of occurrence of the external cause; G40.909 Epilepsy, unspecified, not intractable, without status epilepticus; F17.200 Nicotine dependence, unspecified, uncomplicated; J44.9 Chronic obstructive pulmonary disease, unspecified; E11.9 Type 2 diabetes mellitus without complications

== ENCOUNTER 2017-10-28 13:57 | Emergency (ER) | payer MEDICARE, MEDICAID ==
[~2017-10-28] VITALS: Ht 162.6 cm; Wt 68.2 kg
[2017-10-28 14:02] VITALS: Ht 162.6 cm; Wt 68.2 kg
[2017-10-28 15:44] VITALS: BP 140/82
== END 2017-10-28 15:49 | disposition home or self-care (01) ==
LOC: D.ER 13:57
DX: I10 Essential (primary) hypertension (principal)

== ENCOUNTER 2017-10-29 17:31 | Emergency (ER) | payer MEDICARE, MEDICAID ==
[~2017-10-29] VITALS: Ht 162.6 cm; Wt 68.2 kg
[2017-10-29 18:13] VITALS: Ht 162.6 cm; Wt 68.2 kg
[2017-10-29 23:38] VITALS: BP 147/81
== END 2017-10-29 23:25 | disposition home or self-care (01) ==
LOC: D.ER 17:31
DX: R51 Headache (principal); E11.9 Type 2 diabetes mellitus without complications; J44.9 Chronic obstructive pulmonary disease, unspecified; J45.909 Unspecified asthma, uncomplicated; F17.200 Nicotine dependence, unspecified, uncomplicated

== ENCOUNTER 2017-11-05 23:46 | Emergency (ER) | payer MEDICARE, MEDICAID ==
[~2017-11-05] VITALS: Ht 157.5 cm; Wt 59.1 kg
[2017-11-05 23:56] VITALS: Ht 157.5 cm; Wt 59.1 kg
[2017-11-06 01:57] LABS: BASOPHILS 0.3 % (0-2); EOSINOPHILS 1.4 % (0-7); HEMATOCRIT 30.9 % (36.0-48.0); HEMOGLOBIN 10.2 g/dL (12-16); IMMATURE GRANULOCYTES 0.2 % (0-5); LYMPHOCYTES 16.7 % (15-50); MCH 28.6 pg (26.0-34.0); MCV 86.6 fL (80.0-100.0); MEAN PLATELET VOLUME 10.3 fL (7.4-10.4); MONOCYTES 9.5 % (2-11); NEUTROPHILS 71.9 % (40-80); RBC 3.57 10x6/uL (4.00-5.40); RDW 14.9 % (11.5-14.5); WBC 11.1 10x3/uL (4.8-10.8)
[2017-11-06 02:06] LABS: ALBUMIN 3.3 g/dL (3.4-5.0); ALKALINE PHOSPHATASE 81 U/L (46-116); BILIRUBIN - TOTAL 0.16 mg/dL (0.2-1.3); CALCIUM 8.2 mg/dL (8.5-10.1); CHLORIDE - SERUM 107 mmol/L (98-107); CREATININE - SERUM 3.6 mg/dL (0.6-1.3); POTASSIUM - SERUM 4.5 mmol/L (3.5-5.1); SODIUM 141 mmol/L (136-145); UREA NITROGEN 29 mg/dL (7-18); eGFR NON AFRICAN AMERICAN 14 mL/min (90-120)
[2017-11-06 02:07] LABS: CALC OSMOLALITY 286 mosm/kg (275-300); GLUCOSE 90 mg/dL (74-106)
[2017-11-06 02:08] LABS: ALT (SGPT) 14 U/L (10-68); CARBON DIOXIDE 22.6 mmol/L (21.0-32.0); TROPONIN-I < 0.017 ng/mL (0.000-0.060)
[2017-11-06 02:09] LABS: CREATINE KINASE 43 UL (21-215); PLATELET COUNT 241 10x3/uL (130-400)
[2017-11-06 03:05] LABS: APPEARANCE CLEAR (CLEAR); BILIRUBIN NEGATIVE (NEGATIVE); COLOR DK YELLOW (YELLOW); GLUCOSE NEGATIVE (NEGATIVE); KETONE SMALL mg/dL (NEGATIVE); NITRITE NEGATIVE (NEGATIVE); PROTEIN NEGATIVE (NEGATIVE); UROBILINOGEN NORMAL (NORMAL)
[2017-11-06 03:16] LABS: UDS - AMPHET NEGATIVE QUAL (NEGATIVE); UDS - BARB NEGATIVE QUAL (NEGATIVE); UDS - BENZO NEGATIVE QUAL (NEGATIVE); UDS - COCAINE NEGATIVE QUAL (NEGATIVE); UDS - OPIATE NEGATIVE QUAL (NEGATIVE); UDS - PCP NEGATIVE QUAL (NEGATIVE); UDS - THC NEGATIVE QUAL (NEGATIVE)
[2017-11-06 05:11] VITALS: BP 96/58
== END 2017-11-06 05:11 | disposition home or self-care (01) ==
LOC: D.ER 23:46
PROVIDERS: Family Medicine
DX: R41.82 Altered mental status, unspecified (principal); N18.9 Chronic kidney disease, unspecified; E86.0 Dehydration; J44.9 Chronic obstructive pulmonary disease, unspecified

== ENCOUNTER 2017-11-06 12:53 | Inpatient (IN) | payer MEDICARE, MEDICAID ==
[2017-11-06] VITALS (24 sets, daily range): BP systolic 75–135; BP diastolic 39–68
[~2017-11-06] VITALS: Ht 157.5 cm; Wt 71.4 kg
[2017-11-06 13:49] LABS: BASOPHILS 0.4 % (0-2); EOSINOPHILS 2.2 % (0-7); HEMATOCRIT 29.8 % (36.0-48.0); HEMOGLOBIN 9.7 g/dL (12-16); IMMATURE GRANULOCYTES 0.1 % (0-5); LYMPHOCYTES 12.8 % (15-50); MCH 28.5 pg (26.0-34.0); MCHC 32.6 g/dL (31.0-37.0); MCV 87.6 fL (80.0-100.0); MEAN PLATELET VOLUME 10.5 fL (7.4-10.4); MONOCYTES 6.9 % (2-11); NEUTROPHILS 77.6 % (40-80); PLATELET COUNT 263 10x3/uL (130-400); RDW 15.2 % (11.5-14.5); WBC 7.7 10x3/uL (4.8-10.8)
[2017-11-06 14:05] LABS: ALBUMIN 3.3 g/dL (3.4-5.0); ALKALINE PHOSPHATASE 87 U/L (46-116); ALT (SGPT) 11 U/L (10-68); CALC OSMOLALITY 285 mosm/kg (275-300); CALCIUM 7.8 mg/dL (8.5-10.1); CARBON DIOXIDE 17.8 mmol/L (21.0-32.0); CHLORIDE - SERUM 105 mmol/L (98-107); CREATININE - SERUM 3.8 mg/dL (0.6-1.3); GLUCOSE 91 mg/dL (74-106); POTASSIUM - SERUM 4.2 mmol/L (3.5-5.1); SODIUM 139 mmol/L (136-145); UREA NITROGEN 34 mg/dL (7-18); eGFR NON AFRICAN AMERICAN 13 mL/min (90-120)
[2017-11-06 14:13] LABS: APPEARANCE CLEAR (CLEAR); BILIRUBIN NEGATIVE (NEGATIVE); COLOR YELLOW (YELLOW); GLUCOSE NEGATIVE (NEGATIVE); KETONE NEGATIVE (NEGATIVE); NITRITE NEGATIVE (NEGATIVE); PROTEIN TRACE mg/dL (NEGATIVE); SPECIFIC GRAVITY 1.015 (1.005-1.020); UROBILINOGEN NORMAL (NORMAL)
[2017-11-06 14:22] LABS: UDS - AMPHET NEGATIVE QUAL (NEGATIVE); UDS - BARB NEGATIVE QUAL (NEGATIVE); UDS - BENZO NEGATIVE QUAL (NEGATIVE); UDS - COCAINE NEGATIVE QUAL (NEGATIVE); UDS - OPIATE NEGATIVE QUAL (NEGATIVE); UDS - PCP NEGATIVE QUAL (NEGATIVE); UDS - THC NEGATIVE QUAL (NEGATIVE)
[2017-11-06 14:25] LABS: THYROID STIMULATING HORMONE 0.58 uIU/mL (0.36-3.74)
[2017-11-06 14:40] LABS: CKMB 5.3 U/L (0.0-3.6); CREATINE KINASE 215 UL (21-215); TROPONIN-I < 0.017 ng/mL (0.000-0.060)
[2017-11-06 16:48] LABS: % SATURATION 6 % (15-55); IRON 18 ug/dl (35-150); TOTAL IRON BIND CAPACITY 263 ug/dl (260-445); UNSAT IRON BIND CAPACITY 245 ug/dl (150-375)
[2017-11-06 17:23] LABS: BASOPHILS 0.4 % (0-2); EOSINOPHILS 1.4 % (0-7); HEMATOCRIT 29.9 % (36.0-48.0); HEMOGLOBIN 9.7 g/dL (12-16); IMMATURE GRANULOCYTES 0.2 % (0-5); LYMPHOCYTES 16.3 % (15-50); MCH 28.5 pg (26.0-34.0); MCHC 32.4 g/dL (31.0-37.0); MCV 87.9 fL (80.0-100.0); MEAN PLATELET VOLUME 10.9 fL (7.4-10.4); MONOCYTES 9.7 % (2-11); RDW 15.1 % (11.5-14.5)
[2017-11-06 17:28] LABS: PLATELET COUNT 173 10x3/uL (130-400); WBC 10.6 10x3/uL (4.8-10.8)
[2017-11-07] VITALS (35 sets, daily range): BP systolic 92–137; BP diastolic 35–83
[2017-11-07 06:22] LABS: BASOPHILS 0.4 % (0-2); EOSINOPHILS 3.3 % (0-7); HEMATOCRIT 27.2 % (36.0-48.0); IMMATURE GRANULOCYTES 0.2 % (0-5); LYMPHOCYTES 19.5 % (15-50); MCH 28.3 pg (26.0-34.0); MCHC 33.1 g/dL (31.0-37.0); MEAN PLATELET VOLUME 10.4 fL (7.4-10.4); MONOCYTES 6.2 % (2-11); NEUTROPHILS 70.4 % (40-80); RBC 3.18 10x6/uL (4.00-5.40); RDW 14.9 % (11.5-14.5)
[2017-11-07 06:24] LABS: MCV 85.5 fL (80.0-100.0); PLATELET COUNT 247 10x3/uL (130-400); WBC 5.5 10x3/uL (4.8-10.8)
[2017-11-07 06:38] LABS: ALBUMIN 2.6 g/dL (3.4-5.0); ANION GAP 15.5 mmol/L (8-16); BILIRUBIN - TOTAL 0.18 mg/dL (0.2-1.3); CALCIUM 7.4 mg/dL (8.5-10.1); CARBON DIOXIDE 18.8 mmol/L (21.0-32.0); PROTEIN - SERUM 5.7 g/dL (6.4-8.2)
[2017-11-07 06:41] LABS: CREATININE - SERUM 1.6 mg/dL (0.6-1.3); POTASSIUM - SERUM 3.3 mmol/L (3.5-5.1)
[2017-11-07 12:31] LABS: MAGNESIUM - SERUM 1.5 mg/dL (1.8-2.4)
[2017-11-07 20:14] LABS: MAGNESIUM - SERUM 1.6 mg/dL (1.8-2.4)
[2017-11-07 20:15] LABS: POTASSIUM - SERUM 4.4 mmol/L (3.5-5.1)
[2017-11-08 00:30] VITALS: BP 106/44
[2017-11-08 04:30] VITALS: BP 92/40
[2017-11-08 06:39] LABS: BASOPHILS 0.4 % (0-2); EOSINOPHILS 3.8 % (0-7); HEMATOCRIT 27.1 % (36.0-48.0); LYMPHOCYTES 26.1 % (15-50); MCH 28.6 pg (26.0-34.0); MCHC 33.2 g/dL (31.0-37.0); MEAN PLATELET VOLUME 10.3 fL (7.4-10.4); MONOCYTES 8.3 % (2-11); NEUTROPHILS 61.4 % (40-80); PLATELET COUNT 241 10x3/uL (130-400); RBC 3.15 10x6/uL (4.00-5.40); RDW 14.7 % (11.5-14.5); WBC 5.1 10x3/uL (4.8-10.8)
[2017-11-08 06:59] LABS: ALBUMIN 2.3 g/dL (3.4-5.0); ALKALINE PHOSPHATASE 69 U/L (46-116); ALT (SGPT) 11 U/L (10-68); BILIRUBIN - TOTAL 0.21 mg/dL (0.2-1.3); CALCIUM 7.9 mg/dL (8.5-10.1); CHLORIDE - SERUM 104 mmol/L (98-107); GLUCOSE 98 mg/dL (74-106); MAGNESIUM - SERUM 1.4 mg/dL (1.8-2.4); PROTEIN - SERUM 5.6 g/dL (6.4-8.2); SODIUM 141 mmol/L (136-145)
[2017-11-08 07:00] LABS: CALC OSMOLALITY 281 mosm/kg (275-300); CARBON DIOXIDE 32.2 mmol/L (21.0-32.0); CREATININE - SERUM 0.7 mg/dL (0.6-1.3); POTASSIUM - SERUM 3.7 mmol/L (3.5-5.1); UREA NITROGEN 14 mg/dL (7-18); eGFR NON AFRICAN AMERICAN > 90 mL/min (90-120)
[2017-11-08 09:03] VITALS: BP 113/56
[2017-11-08 12:39] VITALS: BP 112/35
[2017-11-08 13:19] VITALS: Ht 157.5 cm; Wt 71.4 kg
[2017-11-08 16:14] VITALS: BP 114/52
[2017-11-08 20:00] VITALS: BP 116/51
[2017-11-09] VITALS: BP 114/55
[2017-11-09 05:32] LABS: BASOPHILS 0.6 % (0-2); EOSINOPHILS 10.2 % (0-7); HEMATOCRIT 28.1 % (36.0-48.0); HEMOGLOBIN 8.9 g/dL (12-16); LYMPHOCYTES 29.1 % (15-50); MCH 27.8 pg (26.0-34.0); MCHC 31.7 g/dL (31.0-37.0); MCV 87.8 fL (80.0-100.0); MEAN PLATELET VOLUME 10.8 fL (7.4-10.4); NEUTROPHILS 52.1 % (40-80); PLATELET COUNT 253 10x3/uL (130-400); RDW 14.6 % (11.5-14.5)
[2017-11-09 05:37] LABS: ALBUMIN 2.4 g/dL (3.4-5.0); ALKALINE PHOSPHATASE 73 U/L (46-116); ALT (SGPT) 12 U/L (10-68); BILIRUBIN - TOTAL 0.14 mg/dL (0.2-1.3); CALC OSMOLALITY 280 mosm/kg (275-300); CALCIUM 8.3 mg/dL (8.5-10.1); CHLORIDE - SERUM 104 mmol/L (98-107); CREATININE - SERUM 0.7 mg/dL (0.6-1.3); GLUCOSE 89 mg/dL (74-106); MAGNESIUM - SERUM 1.5 mg/dL (1.8-2.4); POTASSIUM - SERUM 3.8 mmol/L (3.5-5.1); PROTEIN - SERUM 5.9 g/dL (6.4-8.2); SODIUM 142 mmol/L (136-145); eGFR NON AFRICAN AMERICAN > 90 mL/min (90-120)
[2017-11-09 05:40] LABS: PHOSPHOROUS 2.7 mg/dL (2.5-4.9); UREA NITROGEN 10 mg/dL (7-18)
[2017-11-09 06:17] VITALS: BP 117/54
[2017-11-09 07:00] VITALS: BP 120/47
[2017-11-09 08:19] LABS: FOLATE (FOLIC ACID) - SERUM >20.0 ng/mL (>3.0)
[2017-11-09 11:00] VITALS: BP 141/80
[2017-11-09 14:23] LABS: SPE - ALBUMIN 2.6 g/dL (2.9-4.4); SPE - ALPHA-1 GLOBULIN 0.2 g/dL (0.0-0.4); SPE - ALPHA-2 GLOBULIN 0.7 g/dL (0.4-1.0); SPE - BETA GLOBULIN 0.8 g/dL (0.7-1.3); SPE - GAMMA GLOBULIN 0.8 g/dL (0.4-1.8); SPE - M-SPIKE Not Observed g/dL (Not Observed); SPE - TOTAL PROTEIN 5.1 g/dL (6.0-8.5)
[2017-11-09 15:43] VITALS: BP 120/56
[2017-11-09 21:53] VITALS: BP 131/66
[2017-11-10 00:49] VITALS: BP 126/57
[2017-11-10 05:03] LABS: BASOPHILS 0.5 % (0-2); EOSINOPHILS 12.3 % (0-7); HEMATOCRIT 30.4 % (36.0-48.0); HEMOGLOBIN 9.8 g/dL (12-16); IMMATURE GRANULOCYTES 0.2 % (0-5); LYMPHOCYTES 28.7 % (15-50); MCH 28.2 pg (26.0-34.0); MCHC 32.2 g/dL (31.0-37.0); MCV 87.6 fL (80.0-100.0); MEAN PLATELET VOLUME 10.4 fL (7.4-10.4); MONOCYTES 7.3 % (2-11); RBC 3.47 10x6/uL (4.00-5.40); RDW 14.5 % (11.5-14.5); WBC 5.8 10x3/uL (4.8-10.8)
[2017-11-10 05:17] VITALS: BP 116/58
[2017-11-10 05:20] LABS: PLATELET COUNT 336 10x3/uL (130-400)
[2017-11-10 05:39] LABS: ALKALINE PHOSPHATASE 87 U/L (46-116); ALT (SGPT) 11 U/L (10-68); CALCIUM 8.8 mg/dL (8.5-10.1); CARBON DIOXIDE 29.2 mmol/L (21.0-32.0); CHLORIDE - SERUM 103 mmol/L (98-107); CREATININE - SERUM 0.7 mg/dL (0.6-1.3); GLUCOSE 79 mg/dL (74-106); SODIUM 138 mmol/L (136-145); eGFR NON AFRICAN AMERICAN > 90 mL/min (90-120)
[2017-11-10 05:41] LABS: CALC OSMOLALITY 275 mosm/kg (275-300); PHOSPHOROUS 3.5 mg/dL (2.5-4.9); POTASSIUM - SERUM 4.4 mmol/L (3.5-5.1); UREA NITROGEN 15 mg/dL (7-18)
[2017-11-10 09:11] VITALS: BP 136/81
[2017-11-10 12:35] VITALS: BP 133/75
== END 2017-11-10 14:16 | disposition home or self-care (01) | DRG 314 ==
LOC: D.ER 12:53 → D.EDHOLD 15:51 → D.M2 15:51 → D.ICU 15:51 → D.M2 11-07 13:34
PROVIDERS: Emergency Medicine; Internal Medicine Nephrology
DX: I95.9 Hypotension, unspecified (principal); G92 Toxic encephalopathy; N17.9 Acute kidney failure, unspecified; E11.22 Type 2 diabetes mellitus with diabetic chronic kidney disease; I12.9 Hypertensive chronic kidney disease with stage 1 through stage 4 chronic kidney disease, or unspecified chronic kidney disease; N18.9 Chronic kidney disease, unspecified; E11.40 Type 2 diabetes mellitus with diabetic neuropathy, unspecified; M17.9 Osteoarthritis of knee, unspecified; G40.909 Epilepsy, unspecified, not intractable, without status epilepticus; Z72.0 Tobacco use; G47.30 Sleep apnea, unspecified

== ENCOUNTER → 2018-01-10 08:21 | Outpatient (CLI) | payer MEDICARE, MEDICAID ==
[2017-11-08 13:19] VITALS: BMI 30.5
== END | disposition home or self-care (01) ==
LOC: D.RT 08:21
DX: J45.909 Unspecified asthma, uncomplicated (principal)

== ENCOUNTER 2018-01-27 16:39 | Emergency (ER) | payer MEDICARE, MEDICAID ==
[~2018-01-27] VITALS: Ht 157.5 cm; Wt 70.5 kg
[2018-01-27 16:57] VITALS: Ht 157.5 cm; Wt 70.5 kg
[2018-01-27 19:17] LABS: BASOPHILS 0.9 % (0-2); EOSINOPHILS 4.7 % (0-7); HEMATOCRIT 30.9 % (36.0-48.0); IMMATURE GRANULOCYTES 0.3 % (0-5); LYMPHOCYTES 16.2 % (15-50); MCH 27.8 pg (26.0-34.0); MCHC 32.4 g/dL (31.0-37.0); MCV 85.8 fL (80.0-100.0); MEAN PLATELET VOLUME 10.3 fL (7.4-10.4); MONOCYTES 18.8 % (2-11); NEUTROPHILS 59.1 % (40-80); PLATELET COUNT 274 10x3/uL (130-400); RDW 15.8 % (11.5-14.5); WBC 5.7 10x3/uL (4.8-10.8)
[2018-01-27 19:50] LABS: ALBUMIN 3.1 g/dL (3.4-5.0); CALCIUM 8.5 mg/dL (8.5-10.1); CARBON DIOXIDE 20.3 mmol/L (21.0-32.0); CREATININE - SERUM 1.5 mg/dL (0.6-1.3); PROTEIN - SERUM 6.9 g/dL (6.4-8.2)
[2018-01-27 19:52] LABS: ANION GAP 17.6 mmol/L (8-16); BILIRUBIN - TOTAL 0.09 mg/dL (0.2-1.3); POTASSIUM - SERUM 2.9 mmol/L (3.5-5.1)
[2018-01-27 21:22] LABS: APPEARANCE CLEAR (CLEAR); COLOR YELLOW (YELLOW)
[2018-01-27 21:23] LABS: BILIRUBIN NEGATIVE (NEGATIVE); GLUCOSE NEGATIVE (NEGATIVE); KETONE NEGATIVE (NEGATIVE); NITRITE NEGATIVE (NEGATIVE); PROTEIN NEGATIVE (NEGATIVE); UROBILINOGEN NORMAL (NORMAL)
[2018-01-27 21:33] LABS: UDS - AMPHET NEGATIVE QUAL (NEGATIVE); UDS - BARB NEGATIVE QUAL (NEGATIVE); UDS - BENZO NEGATIVE QUAL (NEGATIVE); UDS - COCAINE NEGATIVE QUAL (NEGATIVE); UDS - OPIATE NEGATIVE QUAL (NEGATIVE); UDS - PCP NEGATIVE QUAL (NEGATIVE); UDS - THC NEGATIVE QUAL (NEGATIVE)
[2018-01-27 22:16] VITALS: BP 87/32
== END 2018-01-27 22:16 | disposition home or self-care (01) ==
LOC: D.ER 16:39
PROVIDERS: Family Medicine
DX: R41.82 Altered mental status, unspecified (principal); N28.9 Disorder of kidney and ureter, unspecified; Z86.73 Personal history of transient ischemic attack (TIA), and cerebral infarction without residual deficits; E11.9 Type 2 diabetes mellitus without complications; G40.909 Epilepsy, unspecified, not intractable, without status epilepticus; E87.6 Hypokalemia; J44.9 Chronic obstructive pulmonary disease, unspecified; I10 Essential (primary) hypertension; F17.200 Nicotine dependence, unspecified, uncomplicated

== ENCOUNTER → 2018-01-31 08:21 | Outpatient (CLI) | payer MEDICARE, MEDICAID ==
[2018-01-27 16:57] VITALS: BMI 28.4
== END | disposition home or self-care (01) ==
LOC: D.MRI 08:21
DX: M48.061 Spinal stenosis, lumbar region without neurogenic claudication (principal)

== ENCOUNTER 2018-02-22 16:44 | Emergency (ER) | payer MEDICARE, MEDICAID ==
[~2018-02-22] VITALS: Ht 162.6 cm; Wt 68.2 kg
[2018-02-22 17:45] VITALS: Ht 162.6 cm; Wt 68.2 kg
[2018-02-22] MEDS ORDERED: CYCLOBENZAPRINE10 MG PO (20:04)
[2018-02-22] MEDS ORDERED: TYLENOL W/CODEI1 TAB PO (20:04)
[2018-02-22 20:13] VITALS: BP 151/66
== END 2018-02-22 20:14 | disposition home or self-care (01) ==
LOC: D.ER 16:44
DX: S16.1XXA Strain of muscle, fascia and tendon at neck level, initial encounter (principal); V43.62XA Car passenger injured in collision with other type car in traffic accident, initial encounter; Y93.89 Activity, other specified; Y92.410 Unspecified street and highway as the place of occurrence of the external cause; S39.012A Strain of muscle, fascia and tendon of lower back, initial encounter; M62.838 Other muscle spasm; E11.9 Type 2 diabetes mellitus without complications; I10 Essential (primary) hypertension; J44.9 Chronic obstructive pulmonary disease, unspecified; K21.9 Gastro-esophageal reflux disease without esophagitis; F17.200 Nicotine dependence, unspecified, uncomplicated

== ENCOUNTER 2018-04-04 17:33 | Emergency (ER) | payer MEDICARE, MEDICAID ==
[~2018-04-04] VITALS: Ht 162.6 cm; Wt 68.2 kg
[~2018-04-04 17:33] MED LIST changes: +TYLENOL W/CODEI1 TAB PO
[2018-04-04 17:37] VITALS: Ht 162.6 cm; Wt 68.2 kg
[2018-04-04 18:36] LABS: BASOPHILS 0.5 % (0-2); EOSINOPHILS 5.8 % (0-7); HEMATOCRIT 37.2 % (36.0-48.0); HEMOGLOBIN 12.1 g/dL (12-16); IMMATURE GRANULOCYTES 0.5 % (0-5); LYMPHOCYTES 24.7 % (15-50); MCH 28.5 pg (26.0-34.0); MCHC 32.5 g/dL (31.0-37.0); MCV 87.7 fL (80.0-100.0); MEAN PLATELET VOLUME 9.7 fL (7.4-10.4); NEUTROPHILS 61.5 % (40-80); RBC 4.24 10x6/uL (4.00-5.40); RDW 14.3 % (11.5-14.5)
[2018-04-04 18:51] LABS: PLATELET COUNT 411 10x3/uL (130-400)
[2018-04-04 18:55] LABS: APPEARANCE CLEAR (CLEAR); COLOR YELLOW (YELLOW); NITRITE NEGATIVE (NEGATIVE); SPECIFIC GRAVITY 1.015 (1.005-1.020)
[2018-04-04 18:56] LABS: BILIRUBIN NEGATIVE (NEGATIVE); GLUCOSE NEGATIVE (NEGATIVE); KETONE NEGATIVE (NEGATIVE); PROTEIN NEGATIVE (NEGATIVE); UROBILINOGEN NORMAL (NORMAL)
[2018-04-04 18:58] LABS: ALBUMIN 3.6 g/dL (3.4-5.0); ALKALINE PHOSPHATASE 92 U/L (46-116); ALT (SGPT) 13 U/L (10-68); BILIRUBIN - TOTAL 0.17 mg/dL (0.2-1.3); CALC OSMOLALITY 264 mosm/kg (275-300); CALCIUM 9.4 mg/dL (8.5-10.1); CARBON DIOXIDE 24.8 mmol/L (21.0-32.0); CHLORIDE - SERUM 95 mmol/L (98-107); CREATININE - SERUM 0.7 mg/dL (0.6-1.3); GLUCOSE 109 mg/dL (74-106); MAGNESIUM - SERUM 1.9 mg/dL (1.8-2.4); POTASSIUM - SERUM 4.2 mmol/L (3.5-5.1); PROTEIN - SERUM 8.5 g/dL (6.4-8.2); SODIUM 130 mmol/L (136-145); UREA NITROGEN 21 mg/dL (7-18); eGFR NON AFRICAN AMERICAN > 90 mL/min (90-120)
[2018-04-04 20:05] LABS: UDS - AMPHET NEGATIVE QUAL (NEGATIVE); UDS - BARB NEGATIVE QUAL (NEGATIVE); UDS - BENZO NEGATIVE QUAL (NEGATIVE); UDS - COCAINE NEGATIVE QUAL (NEGATIVE); UDS - OPIATE NEGATIVE QUAL (NEGATIVE); UDS - PCP NEGATIVE QUAL (NEGATIVE); UDS - THC NEGATIVE QUAL (NEGATIVE)
[2018-04-04] MEDS ORDERED: KLONOPIN1 MG PO (20:06)
[2018-04-04 20:22] VITALS: BP 135/81
== END 2018-04-04 20:22 | disposition home or self-care (01) ==
LOC: D.ER 17:33
PROVIDERS: Family Medicine
DX: G40.89 Other seizures (principal); E11.9 Type 2 diabetes mellitus without complications; I10 Essential (primary) hypertension; J44.9 Chronic obstructive pulmonary disease, unspecified; K21.9 Gastro-esophageal reflux disease without esophagitis; F17.200 Nicotine dependence, unspecified, uncomplicated

== ENCOUNTER 2018-05-03 03:31 | Emergency (ER) | payer MEDICARE, MEDICAID ==
[~2018-05-03] VITALS: Ht 162.6 cm; Wt 75.0 kg
[~2018-05-03 03:31] MED LIST changes: +KLONOPIN1 MG PO
[2018-05-03 03:35] VITALS: Ht 162.6 cm; Wt 75.0 kg
[2018-05-03 04:28] LABS: BASOPHILS 0 % (0-2); EOSINOPHILS 0 % (0-7); HEMATOCRIT 32.9 % (36.0-48.0); HEMOGLOBIN 11.1 g/dL (12-16); IMMATURE GRANULOCYTES 0.3 % (0-5); LYMPHOCYTES 14.3 % (15-50); MCH 28.5 pg (26.0-34.0); MCHC 33.7 g/dL (31.0-37.0); MCV 84.6 fL (80.0-100.0); MEAN PLATELET VOLUME 9.5 fL (7.4-10.4); MONOCYTES 3.9 % (2-11); NEUTROPHILS 81.5 % (40-80); PLATELET COUNT 405 10x3/uL (130-400); RBC 3.89 10x6/uL (4.00-5.40); RDW 14.4 % (11.5-14.5); WBC 6.2 10x3/uL (4.8-10.8)
[2018-05-03 04:44] LABS: ALBUMIN 3.4 g/dL (3.4-5.0); ALKALINE PHOSPHATASE 75 U/L (46-116); ALT (SGPT) 13 U/L (10-68); BILIRUBIN - TOTAL 0.24 mg/dL (0.2-1.3); CALC OSMOLALITY 274 mosm/kg (275-300); CARBON DIOXIDE 16.8 mmol/L (21.0-32.0); CHLORIDE - SERUM 103 mmol/L (98-107); CREATININE - SERUM 0.7 mg/dL (0.6-1.3); GLUCOSE 123 mg/dL (74-106); POTASSIUM - SERUM 4.2 mmol/L (3.5-5.1); PROTEIN - SERUM 7.5 g/dL (6.4-8.2); SODIUM 135 mmol/L (136-145); UREA NITROGEN 24 mg/dL (7-18); eGFR NON AFRICAN AMERICAN > 90 mL/min (90-120)
[2018-05-03 04:50] LABS: LIPASE 117 U/L (73-393); PRO BNP 567 pg/mL (0-125)
[2018-05-03 04:59] LABS: TROPONIN-I < 0.017 ng/mL (0.000-0.060)
[2018-05-03 05:49] LABS: APPEARANCE CLEAR (CLEAR); COLOR YELLOW (YELLOW)
[2018-05-03 05:50] LABS: BILIRUBIN NEGATIVE (NEGATIVE); GLUCOSE NEGATIVE (NEGATIVE); KETONE NEGATIVE (NEGATIVE); NITRITE NEGATIVE (NEGATIVE); PROTEIN 1+ mg/dL (NEGATIVE); SPECIFIC GRAVITY 1.015 (1.005-1.020); UROBILINOGEN NORMAL (NORMAL)
[2018-05-03 05:51] LABS: BACTERIA FEW /hpf (NONE SEEN); EPITHELIAL CELLS 0-5 /hpf (0-5); RED CELLS - URINE 0-5 /hpf (0-5); WHITE CELLS - URINE 0-5 /hpf (0-5)
[2018-05-03 06:01] LABS: UDS - AMPHET NEGATIVE QUAL (NEGATIVE); UDS - BARB NEGATIVE QUAL (NEGATIVE); UDS - BENZO NEGATIVE QUAL (NEGATIVE); UDS - COCAINE NEGATIVE QUAL (NEGATIVE); UDS - OPIATE POSITIVE QUAL (NEGATIVE); UDS - PCP NEGATIVE QUAL (NEGATIVE); UDS - THC NEGATIVE QUAL (NEGATIVE)
[2018-05-03] MEDS ORDERED: TYLENOL W/CODEI1 TAB PO (06:39)
[2018-05-03 07:14] VITALS: BP 155/79
== END 2018-05-03 07:15 | disposition home or self-care (01) ==
LOC: D.ER 03:31
PROVIDERS: Family Medicine
DX: R07.89 Other chest pain (principal); E11.9 Type 2 diabetes mellitus without complications; I10 Essential (primary) hypertension; J44.9 Chronic obstructive pulmonary disease, unspecified; K21.9 Gastro-esophageal reflux disease without esophagitis; F17.200 Nicotine dependence, unspecified, uncomplicated

== ENCOUNTER 2018-05-04 22:27 | Emergency (ER) | payer MEDICARE, MEDICAID ==
[~2018-05-04] VITALS: Ht 162.6 cm; Wt 68.2 kg
[2018-05-04 22:29] VITALS: Ht 162.6 cm; Wt 68.2 kg
[2018-05-04 23:15] LABS: BASOPHILS 0.1 % (0-2); EOSINOPHILS 0.9 % (0-7); HEMATOCRIT 34.5 % (36.0-48.0); HEMOGLOBIN 11.4 g/dL (12-16); IMMATURE GRANULOCYTES 0.5 % (0-5); LYMPHOCYTES 33.6 % (15-50); MCH 28.1 pg (26.0-34.0); MEAN PLATELET VOLUME 9.3 fL (7.4-10.4); NEUTROPHILS 55.9 % (40-80); PLATELET COUNT 493 10x3/uL (130-400); RBC 4.06 10x6/uL (4.00-5.40); RDW 14.7 % (11.5-14.5); WBC 8.6 10x3/uL (4.8-10.8)
[2018-05-04 23:25] LABS: ALBUMIN 3.3 g/dL (3.4-5.0); ALKALINE PHOSPHATASE 71 U/L (46-116); ALT (SGPT) 14 U/L (10-68); BILIRUBIN - TOTAL 0.15 mg/dL (0.2-1.3); CALC OSMOLALITY 276 mosm/kg (275-300); CALCIUM 8.6 mg/dL (8.5-10.1); CARBON DIOXIDE 19.6 mmol/L (21.0-32.0); CHLORIDE - SERUM 103 mmol/L (98-107); CREATININE - SERUM 0.7 mg/dL (0.6-1.3); GLUCOSE 103 mg/dL (74-106); PROTEIN - SERUM 7.5 g/dL (6.4-8.2); SODIUM 136 mmol/L (136-145); UREA NITROGEN 26 mg/dL (7-18); eGFR NON AFRICAN AMERICAN > 90 mL/min (90-120)
[2018-05-04 23:28] LABS: POTASSIUM - SERUM 3.4 mmol/L (3.5-5.1)
[2018-05-04 23:34] LABS: APTT 23.2 SECONDS (22.8-39.4); PROTIME 12.7 SECONDS (11.6-15.0)
[2018-05-04 23:36] LABS: CREATINE KINASE 44 UL (21-215); TROPONIN-I < 0.017 ng/mL (0.000-0.060)
[2018-05-05 01:04] VITALS: BP 153/87
== END 2018-05-05 01:05 | disposition home or self-care (01) ==
LOC: D.ER 22:27
PROVIDERS: Family Medicine
DX: R53.83 Other fatigue (principal); R07.9 Chest pain, unspecified; G89.29 Other chronic pain; G40.909 Epilepsy, unspecified, not intractable, without status epilepticus; F17.200 Nicotine dependence, unspecified, uncomplicated; R05 Cough; M79.18 Myalgia, other site

== ENCOUNTER 2018-05-09 22:38 | Emergency (ER) | payer MEDICARE, MEDICAID ==
[~2018-05-09] VITALS: Ht 162.6 cm; Wt 68.2 kg
[2018-05-09 22:40] VITALS: Ht 162.6 cm; Wt 68.2 kg
[2018-05-09] MEDS ORDERED: ZESTRIL40 MG PO (22:43)
[2018-05-09 23:07] LABS: BASOPHILS 0.4 % (0-2); EOSINOPHILS 2.2 % (0-7); HEMATOCRIT 34.7 % (36.0-48.0); HEMOGLOBIN 11.7 g/dL (12-16); IMMATURE GRANULOCYTES 1.6 % (0-5); MCH 28.1 pg (26.0-34.0); MCHC 33.7 g/dL (31.0-37.0); MCV 83.4 fL (80.0-100.0); MEAN PLATELET VOLUME 9.2 fL (7.4-10.4); NEUTROPHILS 61.8 % (40-80); PLATELET COUNT 405 10x3/uL (130-400); RBC 4.16 10x6/uL (4.00-5.40); RDW 14.1 % (11.5-14.5); WBC 8.2 10x3/uL (4.8-10.8)
[2018-05-09 23:21] LABS: ALBUMIN 2.8 g/dL (3.4-5.0); ALKALINE PHOSPHATASE 85 U/L (46-116); ALT (SGPT) 11 U/L (10-68); BILIRUBIN - TOTAL 0.21 mg/dL (0.2-1.3); CALC OSMOLALITY 272 mosm/kg (275-300); CALCIUM 8.8 mg/dL (8.5-10.1); CARBON DIOXIDE 20.8 mmol/L (21.0-32.0); CHLORIDE - SERUM 102 mmol/L (98-107); CREATININE - SERUM 0.7 mg/dL (0.6-1.3); GLUCOSE 97 mg/dL (74-106); POTASSIUM - SERUM 3.1 mmol/L (3.5-5.1); PROTEIN - SERUM 7.2 g/dL (6.4-8.2); SODIUM 136 mmol/L (136-145); UREA NITROGEN 15 mg/dL (7-18); eGFR NON AFRICAN AMERICAN > 90 mL/min (90-120)
[2018-05-09 23:30] LABS: CKMB 0.6 U/L (0.0-3.6); CREATINE KINASE 25 UL (21-215)
[2018-05-09 23:32] LABS: TROPONIN-I < 0.017 ng/mL (0.000-0.060)
[2018-05-10 05:20] LABS: CKMB 0.5 U/L (0.0-3.6); CREATINE KINASE 33 UL (21-215); TROPONIN-I < 0.017 ng/mL (0.000-0.060)
[2018-05-10 05:53] VITALS: BP 118/71
== END 2018-05-10 05:53 | disposition home or self-care (01) ==
LOC: D.ER 22:38
PROVIDERS: Family Medicine
DX: J44.1 Chronic obstructive pulmonary disease with (acute) exacerbation (principal); R07.9 Chest pain, unspecified; E87.6 Hypokalemia; R05 Cough; R09.89 Other specified symptoms and signs involving the circulatory and respiratory systems; G40.909 Epilepsy, unspecified, not intractable, without status epilepticus; E11.9 Type 2 diabetes mellitus without complications; I10 Essential (primary) hypertension; R00.0 Tachycardia, unspecified

== ENCOUNTER 2018-05-15 16:45 | Emergency (ER) | payer MEDICARE, MEDICAID ==
[~2018-05-15] VITALS: Ht 162.6 cm; Wt 65.9 kg
[2018-05-15 16:48] VITALS: Ht 162.6 cm; Wt 65.9 kg
[2018-05-15] MEDS ORDERED: LAMICTAL (16:51)
[2018-05-15] MEDS ORDERED: KEPPRA250 MG (16:51)
[2018-05-15 18:09] LABS: BASOPHILS 0.2 % (0-2); EOSINOPHILS 0.6 % (0-7); HEMATOCRIT 35.9 % (36.0-48.0); HEMOGLOBIN 11.9 g/dL (12-16); IMMATURE GRANULOCYTES 0.7 % (0-5); LYMPHOCYTES 19.5 % (15-50); MCH 28.3 pg (26.0-34.0); MCHC 33.1 g/dL (31.0-37.0); MCV 85.3 fL (80.0-100.0); MEAN PLATELET VOLUME 9.3 fL (7.4-10.4); MONOCYTES 7.5 % (2-11); NEUTROPHILS 71.5 % (40-80); PLATELET COUNT 367 10x3/uL (130-400); RBC 4.21 10x6/uL (4.00-5.40); RDW 14.4 % (11.5-14.5); WBC 8.4 10x3/uL (4.8-10.8)
[2018-05-15 18:28] LABS: ALBUMIN 2.8 g/dL (3.4-5.0); ALKALINE PHOSPHATASE 75 U/L (46-116); ALT (SGPT) 18 U/L (10-68); BILIRUBIN - TOTAL 0.17 mg/dL (0.2-1.3); CALC OSMOLALITY 272 mosm/kg (275-300); CALCIUM 8.6 mg/dL (8.5-10.1); CARBON DIOXIDE 27.6 mmol/L (21.0-32.0); CHLORIDE - SERUM 99 mmol/L (98-107); CREATININE - SERUM 0.5 mg/dL (0.6-1.3); GLUCOSE 83 mg/dL (74-106); PROTEIN - SERUM 6.6 g/dL (6.4-8.2); SODIUM 137 mmol/L (136-145); UREA NITROGEN 13 mg/dL (7-18); eGFR NON AFRICAN AMERICAN > 90 mL/min (90-120)
[2018-05-15 18:39] LABS: CREATINE KINASE 26 UL (21-215); MAGNESIUM - SERUM 1.9 mg/dL (1.8-2.4)
[2018-05-15 18:40] LABS: TROPONIN-I < 0.017 ng/mL (0.000-0.060)
[2018-05-15 20:05] VITALS: BP 152/78
== END 2018-05-15 20:05 | disposition home or self-care (01) ==
LOC: D.ER 16:45
PROVIDERS: Family Medicine
DX: R51 Headache (principal); F41.9 Anxiety disorder, unspecified; E87.6 Hypokalemia; E11.9 Type 2 diabetes mellitus without complications; J44.9 Chronic obstructive pulmonary disease, unspecified; F17.200 Nicotine dependence, unspecified, uncomplicated

== ENCOUNTER 2018-05-28 01:14 | Emergency (ER) | payer MEDICARE, MEDICAID ==
[~2018-05-28] VITALS: Ht 162.6 cm; Wt 68.2 kg
[~2018-05-28 01:14] MED LIST changes: +KEPPRA250 MG; +LAMICTAL
[2018-05-28 01:28] VITALS: BP 187/97; Ht 162.6 cm; Wt 68.2 kg
[2018-05-28 02:30] LABS: BASOPHILS 0.6 % (0-2); EOSINOPHILS 5.6 % (0-7); HEMATOCRIT 33.8 % (36.0-48.0); HEMOGLOBIN 11.3 g/dL (12-16); IMMATURE GRANULOCYTES 0.2 % (0-5); LYMPHOCYTES 38.4 % (15-50); MCH 28.1 pg (26.0-34.0); MCHC 33.4 g/dL (31.0-37.0); MCV 84.1 fL (80.0-100.0); MEAN PLATELET VOLUME 9.3 fL (7.4-10.4); MONOCYTES 7.8 % (2-11); NEUTROPHILS 47.4 % (40-80); PLATELET COUNT 423 10x3/uL (130-400); RBC 4.02 10x6/uL (4.00-5.40); RDW 14.2 % (11.5-14.5); WBC 4.6 10x3/uL (4.8-10.8)
[2018-05-28 02:41] LABS: ALBUMIN 2.9 g/dL (3.4-5.0); ALKALINE PHOSPHATASE 77 U/L (46-116); ALT (SGPT) 13 U/L (10-68); BILIRUBIN - TOTAL 0.19 mg/dL (0.2-1.3); CALC OSMOLALITY 276 mosm/kg (275-300); CALCIUM 8.8 mg/dL (8.5-10.1); CARBON DIOXIDE 17.8 mmol/L (21.0-32.0); CHLORIDE - SERUM 107 mmol/L (98-107); CREATININE - SERUM 0.7 mg/dL (0.6-1.3); GLUCOSE 95 mg/dL (74-106); POTASSIUM - SERUM 3.7 mmol/L (3.5-5.1); PROTEIN - SERUM 6.9 g/dL (6.4-8.2); SODIUM 139 mmol/L (136-145); UREA NITROGEN 11 mg/dL (7-18); eGFR NON AFRICAN AMERICAN > 90 mL/min (90-120)
[2018-05-28 02:52] LABS: CKMB 0.9 U/L (0.0-3.6); CREATINE KINASE 50 UL (21-215)
[2018-05-28 02:55] LABS: TROPONIN-I < 0.017 ng/mL (0.000-0.060)
[2018-05-28] MEDS ORDERED: ULTRAM50 MG PO (22:59)
[2018-05-28] MEDS ORDERED: PROVENTIL/2.5 MG/3 M INH (23:00)
== END 2018-05-28 04:16 | disposition left against medical advice (07) ==
LOC: D.ER 01:14
PROVIDERS: Family Medicine
DX: R06.00 Dyspnea, unspecified (principal); E11.9 Type 2 diabetes mellitus without complications; I10 Essential (primary) hypertension; J44.9 Chronic obstructive pulmonary disease, unspecified

== ENCOUNTER 2018-05-28 06:51 | Emergency (ER) | payer MEDICARE, MEDICAID ==
[~2018-05-28] VITALS: Ht 162.6 cm; Wt 75.0 kg
[2018-05-28 06:59] VITALS: Ht 162.6 cm; Wt 75.0 kg
[2018-05-28 10:49] VITALS: BP 166/106
[2018-05-28] MEDS ORDERED: ULTRAM50 MG PO (22:59)
[2018-05-28] MEDS ORDERED: PROVENTIL/2.5 MG/3 M INH (23:00)
== END 2018-05-28 10:51 | disposition home or self-care (01) ==
LOC: D.ER 06:51
DX: R07.89 Other chest pain (principal); J44.9 Chronic obstructive pulmonary disease, unspecified; E11.9 Type 2 diabetes mellitus without complications; I10 Essential (primary) hypertension

== ENCOUNTER 2018-05-28 22:30 | Emergency (ER) | payer MEDICARE, MEDICAID ==
[~2018-05-28] VITALS: Ht 162.6 cm; Wt 70.5 kg
[2018-05-28 22:32] VITALS: Ht 162.6 cm; Wt 70.5 kg
[2018-05-28] MEDS ORDERED: ULTRAM50 MG PO (22:59)
[2018-05-28] MEDS ORDERED: PROVENTIL/2.5 MG/3 M INH (23:00)
[2018-05-28 23:52] VITALS: BP 160/100
== END 2018-05-28 23:52 | disposition home or self-care (01) ==
LOC: D.ER 22:30
DX: R07.89 Other chest pain (principal); J45.909 Unspecified asthma, uncomplicated; E11.9 Type 2 diabetes mellitus without complications; I10 Essential (primary) hypertension; J44.9 Chronic obstructive pulmonary disease, unspecified; F17.200 Nicotine dependence, unspecified, uncomplicated; R00.0 Tachycardia, unspecified

== ENCOUNTER 2018-05-30 01:28 | Emergency (ER) | payer MEDICARE, MEDICAID ==
[~2018-05-30] VITALS: Ht 162.6 cm; Wt 61.4 kg
[~2018-05-30 01:28] MED LIST changes: +PROVENTIL/2.5 MG/3 M INH; +ULTRAM50 MG PO
[2018-05-30 01:37] VITALS: Ht 162.6 cm; Wt 61.4 kg
[2018-05-30 02:16] VITALS: BP 130/83
== END 2018-05-30 02:16 | disposition home or self-care (01) ==
LOC: D.ER 01:28
DX: R07.89 Other chest pain (principal); Z76.5 Malingerer [conscious simulation]

== ENCOUNTER 2018-06-11 09:56 | Emergency (ER) | payer MEDICARE, MEDICAID ==
[2018-06-11 10:05] VITALS: Ht 162.6 cm
[2018-06-11] MEDS ORDERED: ROBAXIN500 MG PO (12:00)
[2018-06-11] MEDS ORDERED: PREDNISONE20 MG PO (12:00)
[2018-06-11 12:48] VITALS: BP 130/85
== END 2018-06-11 12:48 | disposition home or self-care (01) ==
LOC: D.ER 09:56
DX: M25.512 Pain in left shoulder (principal); M25.562 Pain in left knee; M25.561 Pain in right knee; W18.30XA Fall on same level, unspecified, initial encounter; Y93.89 Activity, other specified; Y92.512 Supermarket, store or market as the place of occurrence of the external cause

== ENCOUNTER 2018-07-09 10:30 | Emergency (ER) | payer MEDICARE, MEDICAID ==
[~2018-07-09] VITALS: Ht 162.6 cm; Wt 77.3 kg
[~2018-07-09 10:30] MED LIST changes: +PREDNISONE20 MG PO; +ROBAXIN500 MG PO
[2018-07-09 10:32] VITALS: Ht 162.6 cm; Wt 77.3 kg
[2018-07-09 11:34] LABS: BASOPHILS 0.5 % (0-2); EOSINOPHILS 2.5 % (0-7); HEMATOCRIT 34.1 % (36.0-48.0); HEMOGLOBIN 11.1 g/dL (12-16); IMMATURE GRANULOCYTES 2.5 % (0-5); LYMPHOCYTES 28.9 % (15-50); MCH 28.5 pg (26.0-34.0); MCHC 32.6 g/dL (31.0-37.0); MCV 87.4 fL (80.0-100.0); MEAN PLATELET VOLUME 9.7 fL (7.4-10.4); MONOCYTES 6.5 % (2-11); NEUTROPHILS 59.1 % (40-80); PLATELET COUNT 318 10x3/uL (130-400); RDW 16.2 % (11.5-14.5); WBC 8.1 10x3/uL (4.8-10.8)
[2018-07-09 11:47] LABS: ALBUMIN 2.9 g/dL (3.4-5.0); ALKALINE PHOSPHATASE 70 U/L (46-116); ALT (SGPT) 10 U/L (10-68); BILIRUBIN - TOTAL 0.16 mg/dL (0.2-1.3); CALC OSMOLALITY 276 mosm/kg (275-300); CALCIUM 9.3 mg/dL (8.5-10.1); CARBON DIOXIDE 20.5 mmol/L (21.0-32.0); CHLORIDE - SERUM 104 mmol/L (98-107); CREATININE - SERUM 0.8 mg/dL (0.6-1.3); GLUCOSE 83 mg/dL (74-106); PROTEIN - SERUM 6.7 g/dL (6.4-8.2); SODIUM 136 mmol/L (136-145); UREA NITROGEN 28 mg/dL (7-18); eGFR NON AFRICAN AMERICAN 78 mL/min (90-120)
[2018-07-09 11:50] LABS: TROPONIN-I < 0.017 ng/mL (0.000-0.060)
[2018-07-09 11:57] LABS: APPEARANCE CLEAR (CLEAR); BILIRUBIN NEGATIVE (NEGATIVE); COLOR YELLOW (YELLOW); GLUCOSE NEGATIVE (NEGATIVE); KETONE NEGATIVE (NEGATIVE); NITRITE NEGATIVE (NEGATIVE); PROTEIN NEGATIVE (NEGATIVE); UROBILINOGEN NORMAL (NORMAL)
[2018-07-09] MEDS ORDERED: BACLOFEN20 M1 PO (12:22)
[2018-07-09 13:14] VITALS: BP 100/52
== END 2018-07-09 13:15 | disposition home or self-care (01) ==
LOC: D.ER 10:30
PROVIDERS: Family Medicine
DX: M79.602 Pain in left arm (principal); R53.1 Weakness; G40.909 Epilepsy, unspecified, not intractable, without status epilepticus; E11.9 Type 2 diabetes mellitus without complications; I10 Essential (primary) hypertension; F17.200 Nicotine dependence, unspecified, uncomplicated

== ENCOUNTER 2018-07-16 15:18 | Emergency (ER) | payer MEDICARE, MEDICAID ==
[~2018-07-16] VITALS: Ht 162.6 cm; Wt 68.2 kg
[2018-07-16 15:18] VITALS: Ht 162.6 cm; Wt 68.2 kg
[~2018-07-16 15:18] MED LIST changes: +BACLOFEN20 M1 PO
[2018-07-16] MEDS ORDERED: NEURONTIN 300300 MG PO (15:34)
[2018-07-16] MEDS ORDERED: ADVAIR HFA [SP]12 GM (15:35)
[2018-07-16 16:27] LABS: BASOPHILS 0.3 % (0-2); EOSINOPHILS 0.8 % (0-7); HEMATOCRIT 37.6 % (36.0-48.0); HEMOGLOBIN 12.9 g/dL (12-16); LYMPHOCYTES 23.5 % (15-50); MCH 28.9 pg (26.0-34.0); MCHC 34.3 g/dL (31.0-37.0); MCV 84.1 fL (80.0-100.0); MONOCYTES 10.5 % (2-11); NEUTROPHILS 63.9 % (40-80); RBC 4.47 10x6/uL (4.00-5.40); RDW 15.9 % (11.5-14.5); WBC 7.1 10x3/uL (4.8-10.8)
[2018-07-16 16:35] LABS: PLATELET COUNT 392 10x3/uL (130-400)
[2018-07-16 16:40] LABS: APTT 28.5 SECONDS (22.8-39.4); INR 1.03 (0.85-1.17)
[2018-07-16 16:55] LABS: ALBUMIN 3.5 g/dL (3.4-5.0); ALKALINE PHOSPHATASE 86 U/L (46-116); ALT (SGPT) 14 U/L (10-68); BILIRUBIN - TOTAL 0.34 mg/dL (0.2-1.3); CALC OSMOLALITY 275 mosm/kg (275-300); CALCIUM 9.1 mg/dL (8.5-10.1); CHLORIDE - SERUM 102 mmol/L (98-107); CREATININE - SERUM 0.6 mg/dL (0.6-1.3); GLUCOSE 89 mg/dL (74-106); POTASSIUM - SERUM 3.7 mmol/L (3.5-5.1); PROTEIN - SERUM 7.5 g/dL (6.4-8.2); SODIUM 137 mmol/L (136-145); UREA NITROGEN 20 mg/dL (7-18); eGFR NON AFRICAN AMERICAN > 90 mL/min (90-120)
[2018-07-16 17:09] LABS: CKMB 0.7 U/L (0.0-3.6); CREATINE KINASE 44 UL (21-215); MAGNESIUM - SERUM 1.8 mg/dL (1.8-2.4)
[2018-07-16 17:13] LABS: TROPONIN-I < 0.017 ng/mL (0.000-0.060)
[2018-07-16 18:10] LABS: APPEARANCE CLEAR (CLEAR); COLOR YELLOW (YELLOW); GLUCOSE NEGATIVE (NEGATIVE); KETONE SMALL mg/dL (NEGATIVE); NITRITE NEGATIVE (NEGATIVE); PROTEIN TRACE mg/dL (NEGATIVE)
[2018-07-16 18:11] LABS: BILIRUBIN NEGATIVE (NEGATIVE); UROBILINOGEN NORMAL (NORMAL)
[2018-07-16 18:17] LABS: UDS - AMPHET NEGATIVE QUAL (NEGATIVE); UDS - BARB NEGATIVE QUAL (NEGATIVE); UDS - BENZO NEGATIVE QUAL (NEGATIVE); UDS - COCAINE NEGATIVE QUAL (NEGATIVE); UDS - OPIATE POSITIVE QUAL (NEGATIVE); UDS - PCP NEGATIVE QUAL (NEGATIVE); UDS - THC NEGATIVE QUAL (NEGATIVE)
[2018-07-16] MEDS ORDERED: TESSALON PERLE100 MG PO (18:44)
[2018-07-16] MEDS ORDERED: PHENERGAN25 M1 PO (18:44)
[2018-07-16] MEDS ORDERED: ZPAK PO (18:44)
[2018-07-16 20:20] VITALS: BP 130/79
== END 2018-07-16 20:20 | disposition home or self-care (01) ==
LOC: D.ER 15:18
PROVIDERS: Family Medicine
DX: J40 Bronchitis, not specified as acute or chronic (principal); J44.9 Chronic obstructive pulmonary disease, unspecified; R06.02 Shortness of breath; R05 Cough; G40.909 Epilepsy, unspecified, not intractable, without status epilepticus; E11.9 Type 2 diabetes mellitus without complications; I10 Essential (primary) hypertension; F17.200 Nicotine dependence, unspecified, uncomplicated

== ENCOUNTER → 2018-07-28 11:04 | Outpatient (CLI) | payer MEDICARE, MEDICAID ==
[2018-07-16 15:18] VITALS: BMI 25.8
[~2018-07-28 11:04] MED LIST changes: +ADVAIR HFA [SP]12 GM; +FUROSEMIDE20 MG PO; +K-TAB10 MEQ PO; +KEPPRA500 MG PO; +LAMICTAL100 MG PO; +LEVOFLOXACIN500 MG PO; +TESSALON PERLE100 MG PO; +TRAZODONE HCL150 MG PO; +ZANAFLEX4 MG PO; +ZIAC 5-6.25 MG1 TAB PO; +ZPAK PO
== END | disposition home or self-care (01) ==
LOC: D.US 11:00
PROVIDERS: ATTEND Clinical Nurse Specialist Family Health
DX: R60.0 Localized edema (principal)

== ENCOUNTER 2018-07-29 12:45 | Emergency (ER) | payer MEDICARE, MEDICAID ==
[~2018-07-29] VITALS: Ht 162.6 cm; Wt 68.2 kg
[~2018-07-29 12:45] MED LIST changes: -FUROSEMIDE20 MG PO; -K-TAB10 MEQ PO; -KEPPRA500 MG PO; -LAMICTAL100 MG PO; -LEVOFLOXACIN500 MG PO; -TRAZODONE HCL150 MG PO; -ZANAFLEX4 MG PO; -ZIAC 5-6.25 MG1 TAB PO
[2018-07-29 12:57] VITALS: Ht 162.6 cm; Wt 68.2 kg
[2018-07-29] MEDS ORDERED: KEPPRA500 MG PO (13:00)
[2018-07-29] MEDS ORDERED: ZANAFLEX4 MG PO (13:01)
[2018-07-29] MEDS ORDERED: CYCLOBENZAPRINE10 MG PO (13:02)
[2018-07-29] MEDS ORDERED: LEVOFLOXACIN500 MG PO (13:03)
[2018-07-29] MEDS ORDERED: ZIAC 5-6.25 MG1 TAB PO (13:04)
[2018-07-29] MEDS ORDERED: TRAZODONE HCL150 MG PO (13:04)
[2018-07-29] MEDS ORDERED: K-TAB10 MEQ PO (13:05)
[2018-07-29] MEDS ORDERED: LAMICTAL100 MG PO (13:06)
[2018-07-29] MEDS ORDERED: FUROSEMIDE20 MG PO (13:08)
[2018-07-29 14:48] LABS: ALBUMIN 3.6 g/dL (3.4-5.0); ALKALINE PHOSPHATASE 86 U/L (46-116); ALT (SGPT) 14 U/L (10-68); BILIRUBIN - TOTAL 0.24 mg/dL (0.2-1.3); CALC OSMOLALITY 272 mosm/kg (275-300); CALCIUM 8.9 mg/dL (8.5-10.1); CARBON DIOXIDE 23.9 mmol/L (21.0-32.0); CHLORIDE - SERUM 101 mmol/L (98-107); CREATININE - SERUM 0.7 mg/dL (0.6-1.3); GLUCOSE 86 mg/dL (74-106); POTASSIUM - SERUM 4.1 mmol/L (3.5-5.1); PROTEIN - SERUM 7.7 g/dL (6.4-8.2); SODIUM 137 mmol/L (136-145); UREA NITROGEN 13 mg/dL (7-18); eGFR NON AFRICAN AMERICAN > 90 mL/min (90-120)
[2018-07-29 14:51] LABS: BASOPHILS 0.4 % (0-2); EOSINOPHILS 3.8 % (0-7); HEMATOCRIT 42.5 % (36.0-48.0); HEMOGLOBIN 14.2 g/dL (12-16); IMMATURE GRANULOCYTES 0.2 % (0-5); LYMPHOCYTES 22.8 % (15-50); MCH 27.8 pg (26.0-34.0); MCHC 33.4 g/dL (31.0-37.0); MCV 83.2 fL (80.0-100.0); MEAN PLATELET VOLUME 10.6 fL (7.4-10.4); MONOCYTES 10.1 % (2-11); NEUTROPHILS 62.7 % (40-80); PLATELET COUNT 332 10x3/uL (130-400); RBC 5.11 10x6/uL (4.00-5.40); RDW 15.2 % (11.5-14.5)
[2018-07-29 15:00] VITALS: BP 131/82
== END 2018-07-29 20:45 | disposition other institution (70) ==
LOC: D.ER 12:45
PROVIDERS: Family Medicine
DX: G40.909 Epilepsy, unspecified, not intractable, without status epilepticus (principal); E11.9 Type 2 diabetes mellitus without complications

== ENCOUNTER 2018-08-22 15:40 | Emergency (ER) | payer MEDICARE, MEDICAID ==
[~2018-08-22] VITALS: Ht 162.6 cm; Wt 56.8 kg
[~2018-08-22 15:40] MED LIST changes: +FUROSEMIDE20 MG PO; +K-TAB10 MEQ PO; +KEPPRA500 MG PO; +LAMICTAL100 MG PO; +LEVOFLOXACIN500 MG PO; +TRAZODONE HCL150 MG PO; +ZANAFLEX4 MG PO; +ZIAC 5-6.25 MG1 TAB PO
[2018-08-22 15:42] VITALS: Ht 162.6 cm; Wt 56.8 kg
[2018-08-22 17:09] LABS: APPEARANCE CLEAR (CLEAR); BILIRUBIN NEGATIVE (NEGATIVE); COLOR YELLOW (YELLOW); GLUCOSE NEGATIVE (NEGATIVE); KETONE NEGATIVE (NEGATIVE); NITRITE NEGATIVE (NEGATIVE); PROTEIN NEGATIVE (NEGATIVE); UROBILINOGEN NORMAL (NORMAL)
[2018-08-22 17:43] LABS: UDS - AMPHET NEGATIVE QUAL (NEGATIVE); UDS - BARB NEGATIVE QUAL (NEGATIVE); UDS - BENZO NEGATIVE QUAL (NEGATIVE); UDS - COCAINE NEGATIVE QUAL (NEGATIVE); UDS - OPIATE NEGATIVE QUAL (NEGATIVE); UDS - PCP NEGATIVE QUAL (NEGATIVE); UDS - THC NEGATIVE QUAL (NEGATIVE)
[2018-08-22 17:58] LABS: BASOPHILS 0.3 % (0-2); EOSINOPHILS 3.6 % (0-7); HEMATOCRIT 33.9 % (36.0-48.0); HEMOGLOBIN 11.5 g/dL (12-16); IMMATURE GRANULOCYTES 0.3 % (0-5); LYMPHOCYTES 19.4 % (15-50); MCHC 33.9 g/dL (31.0-37.0); MCV 82.5 fL (80.0-100.0); MEAN PLATELET VOLUME 10.8 fL (7.4-10.4); NEUTROPHILS 68.4 % (40-80); RBC 4.11 10x6/uL (4.00-5.40); RDW 15.1 % (11.5-14.5); WBC 7.2 10x3/uL (4.8-10.8)
[2018-08-22 18:06] LABS: PLATELET COUNT 255 10x3/uL (130-400)
[2018-08-22 18:18] LABS: ALBUMIN 3.2 g/dL (3.4-5.0); ALKALINE PHOSPHATASE 77 U/L (46-116); ALT (SGPT) 15 U/L (10-68); BILIRUBIN - TOTAL 0.16 mg/dL (0.2-1.3); CALC OSMOLALITY 269 mosm/kg (275-300); CALCIUM 8.7 mg/dL (8.5-10.1); CARBON DIOXIDE 21.3 mmol/L (21.0-32.0); CHLORIDE - SERUM 101 mmol/L (98-107); GLUCOSE 93 mg/dL (74-106); POTASSIUM - SERUM 4.4 mmol/L (3.5-5.1); PROTEIN - SERUM 7.1 g/dL (6.4-8.2); SODIUM 134 mmol/L (136-145); UREA NITROGEN 18 mg/dL (7-18)
[2018-08-22 18:20] LABS: TROPONIN-I < 0.017 ng/mL (0.000-0.060)
[2018-08-22 18:28] LABS: CREATININE - SERUM 0.7 mg/dL (0.6-1.3); eGFR NON AFRICAN AMERICAN > 90 mL/min (90-120)
[2018-08-22 23:30] VITALS: BP 101/58
== END 2018-08-22 23:31 | disposition home or self-care (01) ==
LOC: D.ER 15:40
PROVIDERS: Family Medicine
DX: I95.9 Hypotension, unspecified (principal); J44.9 Chronic obstructive pulmonary disease, unspecified; I10 Essential (primary) hypertension; R05 Cough; G40.909 Epilepsy, unspecified, not intractable, without status epilepticus

== ENCOUNTER → 2018-08-23 | Emergency (ER) | payer MEDICARE, MEDICAID ==
[~2018-08-23] VITALS: Ht 162.6 cm; Wt 79.5 kg
[~2018-08-23] MED LIST changes: +BAYER CHEWABLE81 MG PO; +NITROSTAT0.3 MG; +PERCOCET 10-321 EAC1 PO
[2018-08-23 16:59] VITALS: Ht 162.6 cm; Wt 79.5 kg
[2018-08-23 19:23] LABS: BASOPHILS 0.5 % (0-2); EOSINOPHILS 4.9 % (0-7); HEMATOCRIT 32.5 % (36.0-48.0); HEMOGLOBIN 10.9 g/dL (12-16); IMMATURE GRANULOCYTES 0.4 % (0-5); LYMPHOCYTES 30.3 % (15-50); MCH 27.7 pg (26.0-34.0); MCHC 33.5 g/dL (31.0-37.0); MCV 82.7 fL (80.0-100.0); MEAN PLATELET VOLUME 10.9 fL (7.4-10.4); NEUTROPHILS 54.9 % (40-80); PLATELET COUNT 298 10x3/uL (130-400); RBC 3.93 10x6/uL (4.00-5.40); RDW 15.3 % (11.5-14.5); WBC 5.6 10x3/uL (4.8-10.8)
[2018-08-23 19:35] LABS: APTT 20.2 SECONDS (22.8-39.4); INR 1.15 (0.85-1.17); PROTIME 14.2 SECONDS (11.6-15.0)
[2018-08-23 21:10] VITALS: BP 104/49
[2018-08-23 21:32] LABS: ALBUMIN 2.8 g/dL (3.4-5.0); ALKALINE PHOSPHATASE 68 U/L (46-116); BILIRUBIN - TOTAL 0.11 mg/dL (0.2-1.3); CALC OSMOLALITY 281 mosm/kg (275-300); CALCIUM 8.4 mg/dL (8.5-10.1); CARBON DIOXIDE 22.8 mmol/L (21.0-32.0); CHLORIDE - SERUM 106 mmol/L (98-107); GLUCOSE 93 mg/dL (74-106); POTASSIUM - SERUM 3.8 mmol/L (3.5-5.1); PROTEIN - SERUM 6.7 g/dL (6.4-8.2); SODIUM 140 mmol/L (136-145); UREA NITROGEN 22 mg/dL (7-18)
[2018-08-23 21:34] LABS: ALT (SGPT) 11 U/L (10-68); eGFR NON AFRICAN AMERICAN 61 mL/min (90-120)
[2018-08-23 21:43] LABS: CKMB 0.6 U/L (0.0-3.6); CREATINE KINASE 46 UL (21-215); MAGNESIUM - SERUM 1.8 mg/dL (1.8-2.4)
[2018-08-23 21:44] LABS: TROPONIN-I < 0.017 ng/mL (0.000-0.060)
== END | disposition home or self-care (01) ==
LOC: D.ER 16:56
PROVIDERS: Family Medicine
DX: E86.0 Dehydration (principal); Z76.5 Malingerer [conscious simulation]; R11.2 Nausea with vomiting, unspecified

== ENCOUNTER 2018-08-25 09:09 | Emergency (ER) | payer MEDICARE, MEDICAID ==
[~2018-08-25] VITALS: Ht 162.6 cm; Wt 79.5 kg
[~2018-08-25 09:09] MED LIST changes: -BAYER CHEWABLE81 MG PO; -NITROSTAT0.3 MG; -PERCOCET 10-321 EAC1 PO
[2018-08-25 09:12] VITALS: Ht 162.6 cm; Wt 79.5 kg
[2018-08-25] MEDS ORDERED: BAYER CHEWABLE81 MG PO (09:52)
[2018-08-25] MEDS ORDERED: NITROSTAT0.3 MG (09:53)
[2018-08-25] MEDS ORDERED: PERCOCET 10-321 EAC1 PO (09:54)
[2018-08-25 10:51] LABS: BASOPHILS 0.1 % (0-2); EOSINOPHILS 0.1 % (0-7); HEMATOCRIT 35.7 % (36.0-48.0); HEMOGLOBIN 11.8 g/dL (12-16); IMMATURE GRANULOCYTES 0.1 % (0-5); LYMPHOCYTES 24.9 % (15-50); MCH 27.9 pg (26.0-34.0); MCHC 33.1 g/dL (31.0-37.0); MCV 84.4 fL (80.0-100.0); MEAN PLATELET VOLUME 10.5 fL (7.4-10.4); MONOCYTES 5.8 % (2-11); PLATELET COUNT 380 10x3/uL (130-400); RBC 4.23 10x6/uL (4.00-5.40); RDW 15.9 % (11.5-14.5); WBC 8.3 10x3/uL (4.8-10.8)
[2018-08-25] MEDS ORDERED: ZOFRAN ODT4 MG/UDTAB PO (12:25)
[2018-08-25 13:57] VITALS: BP 102/57
== END 2018-08-25 13:49 | disposition home or self-care (01) ==
LOC: D.ER 09:09
PROVIDERS: Emergency Medicine
DX: I95.9 Hypotension, unspecified (principal)

== ENCOUNTER 2018-10-22 15:02 | Emergency (ER) | payer MEDICARE, MEDICAID ==
[~2018-10-22 15:02] MED LIST changes: +BAYER CHEWABLE81 MG PO; +NITROSTAT0.3 MG; +PERCOCET 10-321 EAC1 PO
[2018-10-22 15:14] VITALS: BMI 28.4
[2018-10-22 20:19] VITALS: BP 101/52
== END 2018-10-22 20:19 | disposition home or self-care (01) ==
LOC: D.ER 15:02
DX: S72.402A Unspecified fracture of lower end of left femur, initial encounter for closed fracture (principal); W18.30XA Fall on same level, unspecified, initial encounter; Y93.89 Activity, other specified; Y92.89 Other specified places as the place of occurrence of the external cause; S80.02XA Contusion of left knee, initial encounter; S40.012A Contusion of left shoulder, initial encounter

== ENCOUNTER 2018-12-05 15:29 | Inpatient (IN) | payer MEDICARE, MEDICAID ==
[~2018-12-05] VITALS: Ht 162.6 cm; Wt 75.1 kg
[2018-12-05] VITALS (27 sets, daily range): BP systolic 0–131; BP diastolic 0–87; BMI 29.3
[2018-12-05 16:31] LABS: APPEARANCE CLEAR (CLEAR); BILIRUBIN NEGATIVE (NEGATIVE); COLOR YELLOW (YELLOW); GLUCOSE NEGATIVE (NEGATIVE); KETONE NEGATIVE (NEGATIVE); NITRITE NEGATIVE (NEGATIVE); PROTEIN NEGATIVE (NEGATIVE); UROBILINOGEN NORMAL (NORMAL)
[2018-12-05 16:41] LABS: UDS - AMPHET NEGATIVE QUAL (NEGATIVE); UDS - BARB NEGATIVE QUAL (NEGATIVE); UDS - BENZO NEGATIVE QUAL (NEGATIVE); UDS - COCAINE NEGATIVE QUAL (NEGATIVE); UDS - OPIATE NEGATIVE QUAL (NEGATIVE); UDS - PCP NEGATIVE QUAL (NEGATIVE); UDS - THC NEGATIVE QUAL (NEGATIVE)
[2018-12-05 17:23] LABS: BASOPHILS 0 % (0-2); EOSINOPHILS 0 % (0-7); HEMATOCRIT 29.5 % (36.0-48.0); HEMOGLOBIN 10.1 g/dL (12-16); IMMATURE GRANULOCYTES 0.7 % (0-5); LYMPHOCYTES 5.5 % (15-50); MCHC 34.2 g/dL (31.0-37.0); MCV 81.7 fL (80.0-100.0); MEAN PLATELET VOLUME 10.5 fL (7.4-10.4); MONOCYTES 6.9 % (2-11); NEUTROPHILS 86.9 % (40-80); RBC 3.61 10x6/uL (4.00-5.40); RDW 15.1 % (11.5-14.5); WBC 8.6 10x3/uL (4.8-10.8)
[2018-12-05 17:24] LABS: PLATELET COUNT 267 10x3/uL (130-400)
--- NOTE | 2018-12-05 18:15 | NUR ---
LEFT HUMERAL IO PLACED BY DR. STRONG W/O COMPLICATIONS
--- NOTE | 2018-12-05 18:30 | NUR ---
PT WAS GIVEN A TOTAL OF 2000ML OF NORMAL SALINE BOLUS PER DR. STRONG'S VERBAL ORDER.
[2018-12-05 19:00] LABS: KETONE - SERUM LARGE mg/dL (NEGATIVE)
--- NOTE | 2018-12-05 19:13 | MORECARE ---
CASE MANAGEMENT DISCHARGE SUMMARY PATIENT: CHARLOTTE GARCIA UNIT: [id number] ADM DATE: 12/05/18 AGE: 57 : 60 SEX: F ROOM/BED: D.2308 AUTHOR: ROXANN العراقي PHYSICIAN: REFERRING PHYSICIAN: ANDREW GUO MD DATE OF SERVICE: 12/05/18 Discharge Plan Patient Name: CHARLOTTE GARCIA Facility: [facility]:[place] : 1960 Planned Disposition: Hospice Home Anticipated Discharge Date: 12/07/18 Discharge Date: Expected LOS: 2 Initial Reviewer: [email or web address] Initial Review Date: 12/05/2018 Generated: 12/05/18 8:12 pm DCPIA - Discharge Planning Initial Assessment Updated by [email or web address]: Eleonora Espinal on 12/05/18 7:11 pm * Is the patient Alert and Oriented? No * How many steps to enter\exit or inside your home? * PCP Dr. Otilia Maya * Pharmacy [facility] on [address]/[facility] * Preadmission Environment Hospice * Facility Name [facility] [place] * ADLs Total Dependent * Equipment Bedside [facility] Bed Nebulizer Oxygen Rolling Walker Wheelchair * List name and contact numbers for known caregivers / representatives who currently or will assist patient after discharge: Jose Zavala [facility] - [phone] * Verbal permission to speak to the caregivers and representatives has been obtained from the patient. Yes * Community resources currently utilized Hospice Home * Please name any agencies selected above. [facility] at home. * Additional services required to return to the preadmission environment? Yes * Can the patient safely return to the preadmission environment? No * Has this patient been hospitalized within the prior 30 days at any hospital? Yes Patient Name: CHARLOTTE GARCIA Page [id number] at 1913 All edits/amendments must be made on the electronic document DICTATION DATE: 12/05/181911 COMPUTER INSTALLATION ENGINEER: YOLY 12/05/181911 RPT#: [id number] DC DATE: STATUS: ADM IN [facility] [address] [facility] END OF REPORT
--- NOTE | 2018-12-05 19:15 | NUR ---
Received patient from ER via stretcher to 230, connected to monitors and assessment completed per flowsheet. Patient disoriented to time/place/situation, tracks with eyes. S1/S2 noted Sinus Tach on telemetry, rythmic and regular. Breathing is shallow on 2L via NC with O2 sat 93%, lung sounds clear bilateral upper with crackles mid and diminished lower. Abdomen is round/soft with bowel sounds active x4, non-tender. Womack secured, dark yellow urine noted. All pulses weak palpable with cap refill < 3 sec, skin cool/dry. L shoulder IO placed by ER physician, L ankle PIV with dressing intact. Unable to assess pain at this time, see flowsheet for details. All VSS and will continue to monitor.
[2018-12-05 19:21] LABS: ALBUMIN 2.6 g/dL (3.4-5.0); ALKALINE PHOSPHATASE 87 U/L (46-116); ALT (SGPT) 13 U/L (10-68); BILIRUBIN - TOTAL 0.29 mg/dL (0.2-1.3); CHLORIDE - SERUM 90 mmol/L (98-107); CREATININE - SERUM 6.5 mg/dL (0.6-1.3); POTASSIUM - SERUM 5.7 mmol/L (3.5-5.1); PROTEIN - SERUM 6.1 g/dL (6.4-8.2); SODIUM 123 mmol/L (136-145); UREA NITROGEN 79 mg/dL (7-18); eGFR NON AFRICAN AMERICAN 7 mL/min (90-120)
[2018-12-05 19:22] LABS: CALC OSMOLALITY 278 mosm/kg (275-300); GLUCOSE 232 mg/dL (74-106)
[2018-12-05 19:24] LABS: CARBON DIOXIDE 7.5 mmol/L (21.0-32.0)
[2018-12-05 19:25] LABS: CALCIUM 6.9 mg/dL (8.5-10.1)
--- NOTE | 2018-12-05 19:25 | MORECARE ---
CASE MANAGEMENT DISCHARGE SUMMARY PATIENT: CHARLOTTE GARCIA UNIT: [id number] ADM DATE: 12/05/18 AGE: 57 : 60 SEX: F ROOM/BED: D.2302 AUTHOR: ROXANN العراقي PHYSICIAN: REFERRING PHYSICIAN: ANDREW GUO MD DATE OF SERVICE: 12/05/18 Discharge Plan Patient Name: CHARLOTTE GARCIA Facility: [facility]:[place] : 1960 Planned Disposition: Hospice Home Anticipated Discharge Date: 12/07/18 Discharge Date: Expected LOS: 2 Initial Reviewer: [email or web address] Initial Review Date: 12/05/2018 Generated: 12/05/18 8:25 pm DCP- Discharge Planning Updated by [email or web address]: Eleonora Espinal on 12/05/18 6:[address] Patient Name: CHARLOTTE GARCIA Admission Status: ER Accout number: [id number] Admission Date: 12-05-2018 : 1960 Admission Diagnosis: Attending: ANDREW GUO Current LOS: 1 Anticipated DC Date: 12-07-2018 Planned Disposition: Hospice Home Primary Insurance: [facility] [employer] Discharge Planning Comments: CM met with patient and her friend Jose to complete initial dc planning assessment. CM educated patient's friend on the CM role and verbal consent given by Jose to complete assessment. CM verified patient's address, phone number, and emergency contact phone numbers. Patient lives at home with her daughter and is on [facility]. At discharge patients' friend thinks her plan will be to return home with [facility] hosp[facility] and feels this is a safe discharge. Jose denied known discharge needs at this time. Patient is admitted due to overdose of her medication. Hospice did not revoke her services since she is no admitted for her hospice diagnosis. Hospice faxed living will and cm copied and placed under images in [facility]. CM will continue to follow and will assist as needed with dc plans/needs. Educational Aid: Eleonora Espinal RN, [facility] DCPIA - Discharge Planning Initial Assessment Updated by [email or web address]: Eleonora Espinal on 12/05/18 7:11 pm * Is the patient Alert and Oriented? No * How many steps to enter\exit or inside your home? * PCP Dr. Otilia Maya * Pharmacy [facility] on [address] * Preadmission Environment Hospice * Facility Name [facility] at home * ADLs Total Dependent * Equipment Bedside [facility] Bed Nebulizer Oxygen Rolling Walker Wheelchair * List name and contact numbers for known caregivers / representatives who currently or will assist patient after discharge: Jose Zavala [facility] - [phone] * Verbal permission to speak to the caregivers and representatives has been obtained from the patient. Yes * Community resources currently utilized Hospice Home * Please name any agencies selected above. [facility] at home. * Additional services required to return to the preadmission environment? Yes * Can the patient safely return to the preadmission environment? No * Has this patient been hospitalized within the prior 30 days at any hospital? Yes Last DP export: 12/05/18 6:13 p Patient Name: CHARLOTTE GARCIA Page [id number] at 1925 All edits/amendments must be made on the electronic document DICTATION DATE: 12/05/181924 DRUMS TEACHER: YOLY 12/05/181924 RPT#: [id number] DC DATE: STATUS: ADM IN [facility] [address] [place] [address] END OF REPORT
--- NOTE | 2018-12-05 19:30 | NUR ---
Spoke to Sixto Rendon (son) via phone, updated on current status. Son states he is PoA and wants patient made full code, currently out of state and cannot provide documentation. Discussed treatment plan with all questions answered to satisfaction, no further needs and will continue to monitor.
--- NOTE | 2018-12-05 20:05 | NUR ---
Spoke to Sixto (son) via phone, discussed need for CT of head/Lumbar puncture to determine possibility of meningitis. Son agrees to all needed testing, repeats desire for patient to remain full code status. Son is out of state and wants "her to stay alive until he can get here", currently driving a truck in [place]. Heaven Beltre (daughter) and patient Brother present, agree that patient should be full code. Discussed treatment plan with all questions answered, will continue to monitor.
--- NOTE | 2018-12-05 20:18 | NUR ---
Patient off unit to CT, accompanied by RN.
--- NOTE | 2018-12-05 20:40 | NUR ---
Patient returned to ICU, moved to room 2316 for Droplet precautions. Patient tolerated CT, will continue to monitor.
[2018-12-05 20:57] LABS: INR 1.46 (0.85-1.17); PROTIME 17.1 SECONDS (11.6-15.0)
[2018-12-05 20:58] LABS: APTT 41.1 SECONDS (22.8-39.4)
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
[2018-12-05 21:44] LABS: CKMB 14.5 U/L (0.0-3.6); CREATINE KINASE 363 UL (21-215); TROPONIN-I < 0.017 ng/mL (0.000-0.060)
--- NOTE | 2018-12-05 22:05 | NUR ---
Patient off unit to Fluoroscopy for Lumbar puncture by Dr Heaton, accompanied by Radiology Techs. RN not needed at this time per radiology. Patient brother and daughter at bedside for visitation, all questions answered to satisfaction. Klaus JOHNSON present to discuss with family and update on current status, will continue to monitor.
--- NOTE | 2018-12-05 22:10 | NUR ---
RN off unit to Fluoroscopy to assit in Lumbar puncture, patient unable to remain still for procedure. Klaus JOHNSON notified, unable to provide medication due to questionable code status and possible need for intubation if given.
--- NOTE | 2018-12-05 22:35 | NUR ---
Patient returned to 2316 and connected to monitor, patient core temp now 96.7 via rectal. Susy dorantes replaced, medications given as ordered with patient available. All VSS and will continue to monitor.
--- NOTE | 2018-12-05 23:15 | NUR ---
Reassessment completed per flowsheet. Patient disoriented to time/situation, soft speech/slight garbled. S1/S2 noted Sinus Tach on telemetry, rythmic and regular. Breathing is shallow on 2L via NC with O2 sat 93%, lung sounds clear bilateral upper with crackles mid and diminished lower. All pulses weak palpable with cap refill < 3 sec, skin warm/dry to touch. Womack secured with dark yellow urine. Unable to assess pain, repositioned for comfort. See flowsheet for details, all VSS and will continue to monitor.
[2018-12-06] VITALS (95 sets, daily range): BP systolic 74–161; BP diastolic 44–129; Ht 162.6 cm; Wt 75.1 kg
[2018-12-06 00:08] LABS: APPEARANCE - CSF CLEAR; RBC - CSF 658 cmm (0-0)
[2018-12-06 00:50] LABS: GLUCOSE - CSF 132 MG/DL (40-75); PROTEIN - CSF 68 MG/DL (12-60)
--- NOTE | 2018-12-06 01:00 | NUR ---
Patient sleeping in bed with eyes closed, repositioned for comfort. No further needs at this time, all VSS and will continue to monitor.
--- NOTE | 2018-12-06 03:08 | NUR ---
Reassessment completed per flowsheet, no changes noted from previous assessment. S1/S2 noted Sinus Tach on telemetry, rythmic and regular. Breathing is shallow on 2L via NC with O2 sat 93%, lung sounds clear bilateral upper with crackles mid and diminished lower. All pulses weak palpable with cap refill < 3 sec, skin warm/dry. Unable to assess pain, repositioned for comfort. See flowsheet for details, all VSS and will continue to monitor.
[2018-12-06 04:53] LABS: BASOPHILS 0.2 % (0-2); EOSINOPHILS 0 % (0-7); HEMOGLOBIN 9.7 g/dL (12-16); IMMATURE GRANULOCYTES 0.2 % (0-5); LYMPHOCYTES 3.4 % (15-50); MCH 27.9 pg (26.0-34.0); MCHC 35.9 g/dL (31.0-37.0); MCV 77.6 fL (80.0-100.0); MEAN PLATELET VOLUME 10.3 fL (7.4-10.4); MONOCYTES 7.2 % (2-11); PLATELET COUNT 297 10x3/uL (130-400); RBC 3.48 10x6/uL (4.00-5.40); WBC 4.5 10x3/uL (4.8-10.8)
[2018-12-06 04:59] LABS: ALBUMIN 2.4 g/dL (3.4-5.0); BILIRUBIN - TOTAL 0.22 mg/dL (0.2-1.3); PHOSPHOROUS 4.9 mg/dL (2.5-4.9); PROTEIN - SERUM 5.9 g/dL (6.4-8.2)
[2018-12-06 05:02] LABS: ANION GAP 27.4 mmol/L (8-16); CARBON DIOXIDE 12.2 mmol/L (21.0-32.0); MAGNESIUM - SERUM 1.3 mg/dL (1.8-2.4); POTASSIUM - SERUM 4.6 mmol/L (3.5-5.1)
[2018-12-06 05:03] LABS: CALCIUM 6.2 mg/dL (8.5-10.1)
--- NOTE | 2018-12-06 07:15 | NUR ---
REPORT RECEIVED. PT ON DROPLET ISOLATION PRECAUTIONS FOR POSSIBLE MENINGITIS. PT IS ALERT TO SELF. SHE IS OTHERWISE CONFUSED. SHE HAS AN IO IN HER LEFT SHOULDER. SHE HAS AN IV IN HER LEFT ANKLE THAT DR STRONG PLACED. SHE HAS NS AT KVO, LEVOPHED AT 15MCG, AND BICARB AT 100. PT HAS A MANLEY. SHE IS ON 4L O2 VIA NC. PT HAD BEEN ON HOSPICE, BUT IT WAS REVOKED WHEN THOUGHT SHE OVERDOSED ON PAIN MEDICATION D/T AMS. VITAL SIGNS ARE CURRENTLY STABLE. WILL CONTINUE TO MONITOR.
--- NOTE | 2018-12-06 09:45 | NUR ---
BS 193. COVERED WITH 4 UNITS HUMALOG PER ORDER. PT BARELY ACKNOWLEDGED ME BEING IN THE ROOM. CONFUSED AND LETHARGIC. O2 SAT DOESN'T READ WELL. DID GET 91% ON 4L. WILL CONTINUE TO MONITOR.
--- NOTE | 2018-12-06 11:39 | NUR ---
DR GUO STATES PT DOES NOT HAVE MENINGITIS. SAYS SHE DOES NOT NEED TO BE ON ISOLATION.
[2018-12-06 12:09] LABS: % SATURATION 17 % (15-55); IRON 26 ug/dl (35-150); TOTAL IRON BIND CAPACITY 148 ug/dl (260-445); UNSAT IRON BIND CAPACITY 122 ug/dl (150-375)
--- NOTE | 2018-12-06 13:30 | NUR ---
PT GETTING ECHO DONE.
--- NOTE | 2018-12-06 14:15 | NUR ---
PT HR AND O2 SAT DROPPED WHILE IN MRI. UNABLE TO COMPLETE.
--- NOTE | 2018-12-06 14:24 | NUR ---
PT TO MRI FOR MRI BRAIN WITHOUT. HOOKED UP TO MONITOR BP, O2 AND HR. PT STATS DROPPED TO HR 49, O2 TO 82% AND BP WAS AT 83/41. GILBERTO HOLDEN SAID TO STOP AND TAKE THE PATIENT BACK TO ICU DUE TO HER INSTABILITY. WE ONLY GOT A SAG AND DIFFUSION IMAGES, DR BIRCH SAID TO SEND THROUGH AND HE WILL READ WHAT WE HAD DONE.
--- NOTE | 2018-12-06 16:15 | NUR ---
LEVOPHED STARTED BACK AT 5MCG D/T BP STAYING LOW AND MAP BEING UNDER 65: 84/50 WITH MAP OF 57.
--- NOTE | 2018-12-06 18:00 | NUR ---
PT STILL LETHARGIC AND CONFUSED. ON LEVOPHED FOR LOW BP AND MAP. IV IN LEFT ANKLE. NS AND BICARB ALSO INFUSING. PT HAS MANLEY. OUTPUT 1300 TODAY.
--- NOTE | 2018-12-06 19:00 | NUR ---
Received patient resting in bed with eyes closed, assessment completed per flowsheet. Patient lethargic, awakens to stimuli with slight disorientation to time/situation. S1/S2 noted NSR on telemetry, rythmic and regular. Breathing is shallow on 4L via NC with O2 sat 93%, crackles noted bilateral upper and mid with diminished lower. Abdomen is soft/round with bowel sounds active x4, non-tender. Womack secured with concentrated yellow urine noted. All pulses palpable with cap refill < 3 sec, skin warm/dry with weakness noted all. Unable to assess pain at this time, see flowsheet for details. All VSS and will continue to monitor.
--- NOTE | 2018-12-06 21:10 | NUR ---
Patient sleeping in bed with eyes closed, titrating Norepinephrine per orders. HS meds given via IV without difficulty, L shoulder IO removed with tip intact. Repositioned for comfort, no further needs and will continue to monitor.
--- NOTE | 2018-12-06 23:15 | NUR ---
Reassessment completed per flowsheet, no changes noted from previous assessment. Patient awakens to stimuli with slight disorientation to time, reorients easily with speech is garbled. S1/S2 noted NSR on telemetry, rythmic and regular. Breathing is shallow on 4L via NC with O2 sat 93%, crackles noted bilateral upper and mid with diminished lower. All pulses weak palpable with cap refill < 3 sec, skin cool/dry. Repositioned for comfort, see flowsheet for details. All VSS and will continue to monitor.
[2018-12-07] VITALS (24 sets, daily range): BP systolic 111–144; BP diastolic 67–100
--- NOTE | 2018-12-07 01:10 | NUR ---
Patient sleeping in bed with eyes closed, no s/s of distress at this time. Full bed bath/linen change performed, patient tolerated. Oral care provided, repositioned for comfort. No further needs at this time, all VSS and will continue to monitor.
--- NOTE | 2018-12-07 03:08 | NUR ---
Reassessment completed per flowsheet, no changes noted from previous assessment. S1/S2 noted NSR on telemetry, rythmic and regular. Breathing is shallow on 4L via NC with O2 sat 92%, crackles noted bilateral upper and mid with diminished lower. All pulses weak palpable with skin cool/dry, cap refill < 3 sec. Oral care provided, repositioned for comfort. No further needs at this time, see flowsheet for details. All VSS and will continue to monitor.
[2018-12-07 04:38] LABS: BASOPHILS 0.1 % (0-2); EOSINOPHILS 0 % (0-7); HEMATOCRIT 26.2 % (36.0-48.0); HEMOGLOBIN 9.5 g/dL (12-16); IMMATURE GRANULOCYTES 8.4 % (0-5); LYMPHOCYTES 2.9 % (15-50); MCH 27.6 pg (26.0-34.0); MCHC 36.3 g/dL (31.0-37.0); MCV 76.2 fL (80.0-100.0); MEAN PLATELET VOLUME 10.3 fL (7.4-10.4); MONOCYTES 3.5 % (2-11); NEUTROPHILS 85.1 % (40-80); PLATELET COUNT 290 10x3/uL (130-400); RBC 3.44 10x6/uL (4.00-5.40); RDW 15.4 % (11.5-14.5)
[2018-12-07 04:49] LABS: INR 1.27 (0.85-1.17); PROTIME 15.3 SECONDS (11.6-15.0)
[2018-12-07 04:52] LABS: ALBUMIN 2.2 g/dL (3.4-5.0); BILIRUBIN - TOTAL 0.16 mg/dL (0.2-1.3); MAGNESIUM - SERUM 1.2 mg/dL (1.8-2.4); PROTEIN - SERUM 6.1 g/dL (6.4-8.2)
[2018-12-07 04:58] LABS: WBC 11.5 10x3/uL (4.8-10.8)
--- NOTE | 2018-12-07 05:00 | NUR ---
AM labs collected without difficulty, oral care/repositioning provided. No further needs at this time, all VSS and will continue to monitor.
[2018-12-07 05:32] LABS: ANION GAP 5.6 mmol/L (8-16); CALCIUM 6.1 mg/dL (8.5-10.1); CARBON DIOXIDE 25.7 mmol/L (21.0-32.0); CREATININE - SERUM 2.2 mg/dL (0.6-1.3); PHOSPHOROUS 3.6 mg/dL (2.5-4.9); POTASSIUM - SERUM 3.3 mmol/L (3.5-5.1)
--- NOTE | 2018-12-07 09:46 | NUR ---
0700 RESTING WITH EYES CLOSED ASSESSMENT COMPLETE EXP WHEEZING NOTED WHILE WEARING O2 AT 4L/NC SAT 94 AWAKENS TO TOUCH SPEECH GARBLED YET UNDERSTANDABLE ИРИНА FEET NOT FLEXABLE GENERALIZED EDEMA NOTED WARM BLANKET PROVIDED MAGNISIUM 4 GRAMS [facility] VALUE OF MG+ 1.2 AND POTASSIUM 40MEQ IV GIVEN FOR LOW k+ 3.3 PER ELECTROLYTE PROTOCOL. BICARB INFUSING AT 100ML/HR
--- NOTE | 2018-12-07 09:56 | NUR ---
0800 PP STATED SHE WAS COLD ADJUSTED THERMOSTAT AND PROVIDED WARM BLANKET.
--- NOTE | 2018-12-07 17:50 | MORECARE ---
CASE MANAGEMENT DISCHARGE SUMMARY PATIENT: CHARLOTTE GARCIA UNIT: [id number] ADM DATE: 12/05/18 AGE: 57 : 60 SEX: F ROOM/BED: D.2316 AUTHOR: MALCOM,DOC PHYSICIAN: REFERRING PHYSICIAN: ANDREW GUO MD DATE OF SERVICE: 12/07/18 Discharge Plan Patient Name: CHARLOTTE GARCIA Facility: [facility]:[place] : 1960 Planned Disposition: Hospice Home Anticipated Discharge Date: 12/07/18 Discharge Date: Expected LOS: 2 Initial Reviewer: [email or web address] Initial Review Date: 12/05/2018 Generated: 12/07/18 6:49 pm Comments DCP- Discharge Planning Updated by [email or web address]: Viktoriya Castaneda on 12/07/18 4:[address] CM has spoke with Sherrell @ [facility] this am. CM explained that patient family daughter has revoked Hospice. Sherrell stated that it had not been revoked that patient was admitted under different diagnosis. CM spoke with Jose Little (significant other) and asked him if hospice had been revoked. He stated he didn't know. He stated that once patient was better and she goes home then they will probably continue Hospice care. After CM looked over records to see if a contact for patient's daughter was available nothing is noted in chart. CM has tried all phone numbers listed and haven't been able to get in touch or find a number on daughter. CM has left message with Jose to call back. Medical POA paperwork isn't valid that is in chart. DNR status is questionable since there is a signed DNR per Dr. Hawkins and patient signed from 08/2018. Ethics is checking into this matter. CM will continue to follow and assist with discharge planning / needs. DCP- Discharge Planning Updated by [email or web address]: Eleonora Espinal on 12/05/18 6:[address] Patient Name: CHARLOTTE GARCIA Admission Status: ER Accout number: [id number] Admission Date: 12-05-2018 : 1960 Admission Diagnosis: Attending: ANDREW GUO Current LOS: 1 Anticipated DC Date: 12-07-2018 Planned Disposition: Hospice Home Primary Insurance: [facility] MEDICARE SOLUTIONS Discharge Planning Comments: CM met with patient and her friend Jose to complete initial dc planning assessment. CM educated patient's friend on the CM role and verbal consent given by Jose to complete assessment. CM verified patient's address, phone number, and emergency contact phone numbers. Patient lives at home with her daughter and is on [facility]. At discharge patients' friend thinks her plan will be to return home with [facility] and feels this is a safe discharge. Jose denied known discharge needs at this time. Patient is admitted due to overdose of her medication. Hospice did not revoke her services since she is no admitted for her hospice diagnosis. Hospice faxed living will and cm copied and placed under images in [employer] CM will continue to follow and will assist as needed with dc plans/needs. Pin Pusher: Eleonora Espinal RN, [facility] DCPIA - Discharge Planning Initial Assessment Updated by [email or web address]: Eleonora Espinal on 12/05/18 7:11 pm * Is the patient Alert and Oriented? No * How many steps to enter\exit or inside your home? * PCP Dr. Otilia Maya * Pharmacy [facility] * Preadmission Environment Hospice * Facility Name [facility] [place] * ADLs Total Dependent * Equipment Bedside [facility] Bed Nebulizer Oxygen Rolling Walker Wheelchair * List name and contact numbers for known caregivers / representatives who currently or will assist patient after discharge: Jose Zavala - phillip - [phone] * Verbal permission to speak to the caregivers and representatives has been obtained from the patient. Yes * Community resources currently utilized Hospice Home * Please name any agencies selected above. [facility] at home. * Additional services required to return to the preadmission environment? Yes * Can the patient safely return to the preadmission environment? No * Has this patient been hospitalized within the prior 30 days at any hospital? Yes Last DP export: 12/05/18 6:25 p Patient Name: CHARLOTTE GARCIA Page [id number] at 1750 All edits/amendments must be made on the electronic document DICTATION DATE: 12/07/181748 PARI MUTUEL TICKET SELLER: YOLY 12/07/181748 RPT#: [id number] DC DATE: STATUS: ADM IN [facility] [address] [place] [address] END OF REPORT
--- NOTE | 2018-12-07 18:49 | NUR ---
1000 BLE DOPPLER PERFORMED AT BEDSIDE
--- NOTE | 2018-12-07 18:51 | NUR ---
1400 ARGUMENTATIVE PLACED ON 7L HFNC FOR O2 SAT 88
--- NOTE | 2018-12-07 18:52 | NUR ---
1600 PLACED ON ИРИНА SOFT WRIST RESTRAINTS PULLING AT IV AND PULLING 40% VENTI MASK OFF
--- NOTE | 2018-12-07 18:54 | NUR ---
1700 PUT ON BPAP AT 50%
--- NOTE | 2018-12-07 19:00 | NUR ---
PT IN BED ON BIPAP RESTIING QUIETLY WITH EYES CLOSED.
--- NOTE | 2018-12-07 21:00 | NUR ---
PT IN BED ON BIPAP. RESTING QUIETLY WITH EYES CLOSED. IV TO L WRIST REMOVED WITH CATH TIP INTACT. IV TO L COVARRUBIAS REMOVED WITH CATH TIP INTACT. REDNESS AND SWELLING NOTED AT BOTH IV SITES.
--- NOTE | 2018-12-07 23:00 | NUR ---
PT IN BED RESTING QUIETLY
[2018-12-08] VITALS (24 sets, daily range): BP systolic 109–145; BP diastolic 73–108
--- NOTE | 2018-12-08 01:00 | NUR ---
SPOKE WITH PTs BROTHER REGARDING PT CONDITION
--- NOTE | 2018-12-08 03:00 | NUR ---
PT IN BED. RESTING QUIETLY WITH EYES CLOSED.
[2018-12-08 04:35] LABS: BASOPHILS 0 % (0-2); EOSINOPHILS 0 % (0-7); HEMATOCRIT 24.4 % (36.0-48.0); HEMOGLOBIN 8.8 g/dL (12-16); IMMATURE GRANULOCYTES 0.4 % (0-5); MCH 27.6 pg (26.0-34.0); MCHC 36.1 g/dL (31.0-37.0); MCV 76.5 fL (80.0-100.0); MEAN PLATELET VOLUME 10.1 fL (7.4-10.4); MONOCYTES 2.3 % (2-11); NEUTROPHILS 93.3 % (40-80); PLATELET COUNT 254 10x3/uL (130-400); RBC 3.19 10x6/uL (4.00-5.40); RDW 15.4 % (11.5-14.5); WBC 11.1 10x3/uL (4.8-10.8)
[2018-12-08 04:37] LABS: INR 1.14 (0.85-1.17); PROTIME 14.1 SECONDS (11.6-15.0)
[2018-12-08 04:51] LABS: ALBUMIN 2.2 g/dL (3.4-5.0); ANION GAP 13.6 mmol/L (8-16); BILIRUBIN - TOTAL 0.22 mg/dL (0.2-1.3); CARBON DIOXIDE 30.7 mmol/L (21.0-32.0); PHOSPHOROUS 2.8 mg/dL (2.5-4.9); POTASSIUM - SERUM 3.3 mmol/L (3.5-5.1); PROTEIN - SERUM 5.8 g/dL (6.4-8.2)
[2018-12-08 04:55] LABS: CREATININE - SERUM 1.1 mg/dL (0.6-1.3); MAGNESIUM - SERUM 1.7 mg/dL (1.8-2.4)
[2018-12-08 04:56] LABS: CALCIUM 6.6 mg/dL (8.5-10.1)
--- NOTE | 2018-12-08 05:21 | NUR ---
NOTIFIED OF LABS THAT REQUIRE TREATMENT PER PROTOCOL. AWAITING VASCULAR ACCESS TO PLACE LINE.
--- NOTE | 2018-12-08 07:25 | NUR ---
PT RESTING IN BED ON BIPAP. VSS. BICARB DRIP INFUSING THROUGH RIGHT FOOT PIV.
--- NOTE | 2018-12-08 09:00 | NUR ---
PLACED PATIENT ON HIGH FLOW NC WITH HUMIDIFICATION. STARTED AT 10L. WILL TITRATE DOWN TOLERATED. ORDERING SWALLOW EVAL.
--- NOTE | 2018-12-08 09:02 | NUR ---
Nutrition follow-up: Pt remains NPO due to BIPAP; now on high flow O2 Nurse to order swallow eval now Labs reviewed Wt: 183# RDN following.
--- NOTE | 2018-12-08 13:00 | NUR ---
LEFT PICC LINE PLACED
--- NOTE | 2018-12-08 15:00 | NUR ---
PATIENT PLACED BACK ON BIPAP
--- NOTE | 2018-12-08 18:00 | NUR ---
PATIENT ON BIPAP AT 90%. DOESNT SEEM TO BE PUTTING MUCH EFFORT INTO BREATHING. CALLED DR. LARKIN TO NOTIFY ABOUT CONCERN THAT HIGH O2 IS KILLING RESPIRATORY DRIVE. DR. LARKIN ASSURRED PATIENT IS NOT A CO2 RETAINER DESPITE DIAGNOSIS OF COPD.
--- NOTE | 2018-12-08 18:51 | NUR ---
PT STABLE ON HIGH FLOW NC
--- NOTE | 2018-12-08 19:06 | NUR ---
BEDSIDE SHIFT REPORT GIVEN BY DEPARTING RN. PT LAYING IN BED ON BIPAP 90%. PERRLA. HR SINUS TACH IN 110'S. ALL OTHER VSS. REPOSITIONED FOR COMFORT. OPEN EYES TO VOICE. DOES NOT FOLLOW COMMANDS. GARBLED SPEECH. MAG PICC LINE NOTED AND INFUSING MD ORDERED MEDS PATENTLY. F/C NOTED. ASSESSMENT COMPLETE, SEE FLOWSHEET FOR DETAILS. SAFETY MEASURES IN PLACE. CBIR.
--- NOTE | 2018-12-08 20:34 | NUR ---
HS MEDS GIVEN. TOLERATED WELL.
--- NOTE | 2018-12-08 23:16 | NUR ---
REASSESSMENT COMPLETE. NO NEW CHANGES NOTED IN PT CONDITION. REPOSITIONED. VSS. SAFETY MEASURES IN PLACE. CBIR.
[2018-12-09] VITALS (25 sets, daily range): BP systolic 14–153; BP diastolic 70–101
--- NOTE | 2018-12-09 00:58 | NUR ---
PRN PAIN MED GIVEN. SEE MAR FOR DETAILS.
--- NOTE | 2018-12-09 01:32 | NUR ---
CHG BED BATH GIVEN. LINENS CHANGED. BIPAP TAKEN OFF TO WASH FACE. O2 SAT IMMEDIATELY DROPPED TO 60%. BIPAP REPLACED, O2 SAT 95%. EKG PADS REPLACED. GOWN CHANGED. ALFREDO CARE PERFORMED. TOLERATED OK. SAFETY MEASURES IN PLACE. CBIR.
--- NOTE | 2018-12-09 02:56 | NUR ---
REASSESSMENT COMPLETE. NO NEW CHANGES NOTED IN PT CONDITION. REPOSITIONED.
[2018-12-09 03:53] LABS: HEMATOCRIT 25.3 % (36.0-48.0); HEMOGLOBIN 8.7 g/dL (12-16); MCH 27.5 pg (26.0-34.0); MCHC 34.4 g/dL (31.0-37.0); MEAN PLATELET VOLUME 10.2 fL (7.4-10.4); PLATELET COUNT 209 10x3/uL (130-400); RBC 3.16 10x6/uL (4.00-5.40); RDW 15.7 % (11.5-14.5)
[2018-12-09 03:54] LABS: MCV 80.1 fL (80.0-100.0); WBC 15.8 10x3/uL (4.8-10.8)
[2018-12-09 04:04] LABS: INR 1.23 (0.85-1.17)
[2018-12-09 04:20] LABS: ALBUMIN 2.4 g/dL (3.4-5.0); ANION GAP 15.8 mmol/L (8-16); BILIRUBIN - TOTAL 0.3 mg/dL (0.2-1.3); CARBON DIOXIDE 27.1 mmol/L (21.0-32.0); MAGNESIUM - SERUM 1.9 mg/dL (1.8-2.4); PHOSPHOROUS 2.3 mg/dL (2.5-4.9); PROTEIN - SERUM 5.6 g/dL (6.4-8.2); VANCOMYCIN - RANDOM 13.8 ug/mL (10.0-20.0)
[2018-12-09 04:22] LABS: LYMPHOCYTES 6 % (15-50); MONOCYTES 3 % (2-11); NEUTROPHILS 88 % (40-80); PLATELET ESTIMATE NORMAL
[2018-12-09 04:26] LABS: POTASSIUM - SERUM 3.9 mmol/L (3.5-5.1)
--- NOTE | 2018-12-09 05:07 | NUR ---
PT COUGHING LOUDLY. PULLED BIPAP MASK OFF AND YELLED' "HELP ME! HELP ME! I PUKED. I PUKED!" VOMITUS INSIDE BIPAP MASK. SUCTIONED MOUTH. CRACKLES HEARD T/O ALL LUNG BASES. HR 160'S. PRN ZOFRAN GIVEN. MASK PLACED BACK ON D/T 02 SAT OF 60. PT MOANING IN PAIN. PRN PAIN MED GIVEN. SEE MAR FOR DETAILS.
--- NOTE | 2018-12-09 05:49 | NUR ---
DISCUSSED PREVIOUS EPISODE WITH ALEX LAND. ORDERS RECEIVED, VERIFIED, AND READ BACK. WILL CONTINUE TO MONITOR.
--- NOTE | 2018-12-09 06:24 | NUR ---
DNR STATUS CONFIRMED BY MANAGEMENT.
--- NOTE | 2018-12-09 06:40 | NUR ---
EMERGENCY CONTACTS CALLED TO UPDATE PT STATUS. DAUGHTER'S PHONE WENT TO VOICEMAIL. VOICEMAIL LEFT.
--- NOTE | 2018-12-09 09:18 | NUR ---
Nutrition follow-up: Diet advanced to mechanical soft with thin liquids per speech pathologist; however, pt NPO at this time due to vomiting. Labs reviewed Wt: 179# Recommend nutrition support start due to pt with BIPAP in place and unable to eat. RDN following.
--- NOTE | 2018-12-09 09:30 | NUR ---
0700 FAMILY MEMBERS AT BEDSIDE WITH LIVING WILL. PAPERS GIVEN TO CASE MANAGEMENT, FÉLIX. ASSESSMENT COMPLETE BPAP AT 100% WITH 02 SAT 91%. LEFT UPPER ARM PICC NOTED NS AT 5ML/HR AND BICARB GTT INFUSING AT 50ML/HR. LISTENED TO FAMILY CONCERNS AND ANSWERD QUESTIONS EMOTIONAL SUPPORT GIVEN
--- NOTE | 2018-12-09 09:46 | NUR ---
0900 PT TRYING TO CLIMB OUT OF BED REORIENTED PT TO SITUATION AND PLACE FAMILY MEMBERS REMAIN AT BEDSIDE TO PROVIDE SUPPORT.
--- NOTE | 2018-12-09 10:50 | NUR ---
1030 WAS NOTIFIE BY ABDOUL VERMA RN THAT [facility] ENERGY ECONOMIST STATED THAT S.O. HAD POWER OF MEDICAL CARE. S.O. NOT IN WAITING ROOM
--- NOTE | 2018-12-09 11:20 | NUR ---
FÉLIX JOHN, CORRINE VILLARREAL, DR GUO AND MYSELF MET WITH Ana ESTEVES ABOUT DECISION ON PATIENT STATUS. HE REQUESTS THAT SHE BE INTUBATED SHOULD SHE NEED IT. HE WANTS HER SON TO HAVE CHANCE TO COME SEE HER TOMORROW. DR LARKIN WAS INFORMED OF WISHES AND AT THIS TIME DOES NOT FEEL PT NEEDS TO BE INTUBATED, SHE HAS BEEN STARTED ON SOME NEW MEDICATIONS AND IS RESPONDING POSITIVELY TO THEM.
--- NOTE | 2018-12-09 13:03 | NUR ---
1154 PT NOW DNR, NO INTUBATION, NO CPR PER PAT LARKIN AND SARI AND PATIENT
--- NOTE | 2018-12-09 19:10 | NUR ---
RECEIVED SHIFT REPORT, PATIENT SITTING UP IN BED - BIPAP @ 100 - PATIENT ABLE TO FOLLOW COMMANDS, REPOSITIONED FOR COMFORT SEE SHIFT ASSESSMENT FLOWSHEET
--- NOTE | 2018-12-09 20:40 | MORECARE ---
CASE MANAGEMENT DISCHARGE SUMMARY PATIENT: CHARLOTTE GARCIA UNIT: [id number] ADM DATE: 12/05/18 AGE: 57 : 60 SEX: F ROOM/BED: D.2306 AUTHOR: MALCOM,DOC PHYSICIAN: REFERRING PHYSICIAN: ANDREW GUO MD DATE OF SERVICE: 12/09/18 Discharge Plan Patient Name: CHARLOTTE GARCIA Facility: [facility]:[place] : 1960 Planned Disposition: Hospice Home Anticipated Discharge Date: 12/07/18 Discharge Date: Expected LOS: 2 Initial Reviewer: [email or web address] Initial Review Date: 12/05/2018 Generated: 12/09/18 9:39 pm DCP- Discharge Planning Updated by [email or web address]: Viktoriya Castaneda on 12/07/18 4:[address] CM has spoke with Sherrell @ [facility] this am. CM explained that patient family daughter has revoked Hospice. Sherrell stated that it had not been revoked that patient was admitted under different diagnosis. CM spoke with Jose Littel (significant other) and asked him if hospice had been revoked. He stated he didn't know. He stated that once patient was better and she goes home then they will probably continue Hospice care. After CM looked over records to see if a contact for patient's daughter was available nothing is noted in chart. CM has tried all phone numbers listed and haven't been able to get in touch or find a number on daughter. CM has left message with Jose to call back. Medical POA paperwork isn't valid that is in chart. DNR status is questionable since there is a signed DNR per Dr. Hawkins and patient signed from 08/2018. Ethics is checking into this matter. CM will continue to follow and assist with discharge planning / needs. DCP- Discharge Planning Updated by [email or web address]: Eleonora Espinal on 12/05/18 6:[address] Patient Name: CHARLOTTE GARCIA Admission Status: ER Accout number: [id number] Admission Date: 12-05-2018 : 1960 Admission Diagnosis: Attending: ANDREW GUO Current LOS: 1 Anticipated DC Date: 12-07-2018 Planned Disposition: Hospice Home Primary Insurance: [facility] MEDICARE SOLUTIONS Discharge Planning Comments: CM met with patient and her friend Jose to complete initial dc planning assessment. CM educated patient's friend on the CM role and verbal consent given by Jose to complete assessment. CM verified patient's address, phone number, and emergency contact phone numbers. Patient lives at home with her daughter and is on [facility]. At discharge patients' friend thinks her plan will be to return home with [facility] hospice and feels this is a safe discharge. Jose denied known discharge needs at this time. Patient is admitted due to overdose of her medication. Hospice did not revoke her services since she is no admitted for her hospice diagnosis. Hospice faxed living will and cm copied and placed under images in [employer]. CM will continue to follow and will assist as needed with dc plans/needs. Financial Rep: Eleonora Espinal RN, [facility] DCPIA - Discharge Planning Initial Assessment Updated by [email or web address]: Eleonora Espinal on 12/05/18 7:11 pm * Is the patient Alert and Oriented? No * How many steps to enter\exit or inside your home? * PCP Dr. Otilia Maya * Pharmacy [facility] * Preadmission Environment Hospice * Facility Name [facility] [place] * ADLs Total Dependent * Equipment Bedside [facility] Bed Nebulizer Oxygen Rolling Walker Wheelchair * List name and contact numbers for known caregivers / representatives who currently or will assist patient after discharge: Jose Zavala - phillip - [phone] * Verbal permission to speak to the caregivers and representatives has been obtained from the patient. Yes * Community resources currently utilized Hospice Home * Please name any agencies selected above. [facility] at home. * Additional services required to return to the preadmission environment? Yes * Can the patient safely return to the preadmission environment? No * Has this patient been hospitalized within the prior 30 days at any hospital? Yes Last DP export: 12/07/18 4:50 p Patient Name: CHARLOTTE GARCIA Page [id number] at 2040 All edits/amendments must be made on the electronic document DICTATION DATE: 12/09/182038 CONFIGURATION MANAGEMENT ADMINISTRATOR: YOLY 12/09/182038 RPT#: [id number] DC DATE: STATUS: ADM IN [facility] [address] [place] [address] END OF REPORT
--- NOTE | 2018-12-09 20:50 | NUR ---
DAUGHTER CALLED TO CHECK ON STATUS OF PATIENT
--- NOTE | 2018-12-09 20:52 | MORECARE ---
CASE MANAGEMENT DISCHARGE SUMMARY PATIENT: CHARLOTTE GARCIA UNIT: [id number] ADM DATE: 12/05/18 AGE: 57 : 60 SEX: F ROOM/BED: D.2306 AUTHOR: MALCOM,DOC PHYSICIAN: REFERRING PHYSICIAN: ANDREW GUO MD DATE OF SERVICE: 12/09/18 Discharge Plan Patient Name: CHARLOTTE GARCIA Facility: [facility]:[place] : 1960 Planned Disposition: Hospice Home Anticipated Discharge Date: 12/07/18 Discharge Date: Expected LOS: 2 Initial Reviewer: [email or web address] Initial Review Date: 12/05/2018 Generated: 12/09/18 9:52 pm Comments DCP- Discharge Planning Updated by [email or web address]: Crissy Garcia on 12/09/18 7:[address] Late Entry: 07:55 CM contacted by ICU nurse manager business operations, Kari Cotto, stating family is upset that patient is a DNR, CM went to ICU and bedside nurse gave CM a Living Will that the family brought to the hospital this morning. This Living Will states Jose Choudhary Prior to this, the DCP- Discharge Planning Updated by [email or web address]: Viktoriya Castaneda on 12/07/18 4:[address] CM has spoke with Sherrell @ [facility] this am. MURALI explained that patient family daughter has revoked Hospice. Sherrell stated that it had not been revoked that patient was admitted under different diagnosis. MURALI spoke with Jose Little (significant other) and asked him if hospice had been revoked. He stated he didn't know. He stated that once patient was better and she goes home then they will probably continue Hospice care. After CM looked over records to see if a contact for patient's daughter was available nothing is noted in chart. MURALI has tried all phone numbers listed and haven't been able to get in touch or find a number on daughter. CM has left message with Jose to call back. Medical POA paperwork isn't valid that is in chart. DNR status is questionable since there is a signed DNR per Dr. Hawkins and patient signed from 08/2018. Ethics is checking into this matter. CM will continue to follow and assist with discharge planning / needs. DCP- Discharge Planning Updated by [email or web address]: Eleonora Espinal on 12/05/18 6:[address] Patient Name: CHARLOTTE GARCIA Admission Status: ER Accout number: [id number] Admission Date: 12-05-2018 : 1960 Admission Diagnosis: Attending: ANDREW GUO Current LOS: 1 Anticipated DC Date: 12-07-2018 Planned Disposition: Hospice Home Primary Insurance: [facility] MEDICARE SOLUTIONS Discharge Planning Comments: CM met with patient and her friend Jose to complete initial dc planning assessment. CM educated patient's friend on the CM role and verbal consent given by Jose to complete assessment. CM verified patient's address, phone number, and emergency contact phone numbers. Patient lives at home with her daughter and is on [facility]. At discharge patients' friend thinks her plan will be to return home with [facility] and feels this is a safe discharge. Jose denied known discharge needs at this time. Patient is admitted due to overdose of her medication. Hospice did not revoke her services since she is no admitted for her hospice diagnosis. Hospice faxed living will and cm copied and placed under images in [facility]. CM will continue to follow and will assist as needed with dc plans/needs. Farm Planner: Eleonora Espinal RN, [facility] DCPIA - Discharge Planning Initial Assessment Updated by [id number]: Eleonora Espinal on 12/05/18 7:11 pm * Is the patient Alert and Oriented? No * How many steps to enter\exit or inside your home? * PCP Dr. Otilia Maya * Pharmacy [facility] on [facility] * Preadmission Environment Hospice * Facility Name [facility] [place] * ADLs Total Dependent * Equipment Bedside Commode Hospital Bed Nebulizer Oxygen Rolling Walker Wheelchair * List name and contact numbers for known caregivers / representatives who currently or will assist patient after discharge: Jose Zavala - [place]ill[place] - [phone] * Verbal permission to speak to the caregivers and representatives has been obtained from the patient. Yes * Community resources currently utilized Hospice Home * Please name any agencies selected above. [facility] at home. * Additional services required to return to the preadmission environment? Yes * Can the patient safely return to the preadmission environment? No * Has this patient been hospitalized within the prior 30 days at any hospital? Yes Last DP export: 12/09/18 7:40 p Patient Name: CHARLOTTE GARCIA Page 45317 at 2051 All edits/amendments must be made on the electronic document DICTATION DATE: 12/09/182051 BLOOD AND PLASMA LABORATORY ASSISTANT: YOLY 12/09/182051 RPT#: [id number] DC DATE: STATUS: ADM IN [facility] [address] [place] [address] END OF REPORT
--- NOTE | 2018-12-09 21:11 | MORECARE ---
CASE MANAGEMENT DISCHARGE SUMMARY PATIENT: CHARLOTTE GARCIA UNIT: [id number] ADM DATE: 12/05/18 AGE: 57 : 60 SEX: F ROOM/BED: D.2303 AUTHOR: MALCOM,DOC PHYSICIAN: REFERRING PHYSICIAN: ANDREW GUO MD DATE OF SERVICE: 12/09/18 Discharge Plan Patient Name: CHARLOTTE GARCIA Facility: [facility]:[place] : 1960 Planned Disposition: Hospice Home Anticipated Discharge Date: 12/07/18 Discharge Date: Expected LOS: 2 Initial Reviewer: [email or web address] Initial Review Date: 12/05/2018 Generated: 12/09/18 10:10 pm Comments DCP- Discharge Planning Updated by [email or web address]: Crissy Garcia on 12/09/18 8:[address] Late Entry: 07:55 CM contacted by ICU nurse manager lean, Kari Cotto, stating family is upset that patient is a DNR, CM went to ICU and bedside nurse gave CM a Living Will that the family brought to the hospital this morning. This Living Will states Jose Little is the patient's Health Care Proxy. This Living Will is dated 06/07/2018. Prior to this, the most recent Living Will on the patient's chart was dated for 2016 but on that form the patient had marked "No" by each section as to what the Health Care Proxy had the authority to do. Yet another Health Care Proxy was also on the chart dated 02/09/05 stating . DCP- Discharge Planning Updated by [email or web address]: Viktoriya Castaneda on 12/07/18 4:[address] CM has spoke with Sherrell @ [facility] this am. CM explained that patient family daughter has revoked Hospice. Sherrell stated that it had not been revoked that patient was admitted under different diagnosis. CM spoke with Josetresa Little (significant other) and asked him if hospice had been revoked. He stated he didn't know. He stated that once patient was better and she goes home then they will probably continue Hospice care. After MURALI looked over records to see if a contact for patient's daughter was available nothing is noted in chart. CM has tried all phone numbers listed and haven't been able to get in touch or find a number on daughter. CM has left message with Jose to call back. Medical POA paperwork isn't valid that is in chart. DNR status is questionable since there is a signed DNR per Dr. Hawkins and patient signed from 08/2018. Ethics is checking into this matter. CM will continue to follow and assist with discharge planning / needs. DCP- Discharge Planning Updated by [id number]: Eleonora Espinal on 12/05/18 6:[address] Patient Name: CHARLOTTE GARCIA Admission Status: ER Accout number: [id number] Admission Date: 12-05-2018 : 1960 Admission Diagnosis: Attending: ANDREW GUO Current LOS: 1 Anticipated DC Date: 12-07-2018 Planned Disposition: Hospice Home Primary Insurance: [facility] MEDICARE SOLUTIONS Discharge Planning Comments: CM met with patient and her friend Jose to complete initial dc planning assessment. CM educated patient's friend on the CM role and verbal consent given by Jose to complete assessment. CM verified patient's address, phone number, and emergency contact phone numbers. Patient lives at home with her daughter and is on [facility]. At discharge patients' friend thinks her plan will be to return home with [facility] and feels this is a safe discharge. Jose denied known discharge needs at this time. Patient is admitted due to overdose of her medication. Hospice did not revoke her services since she is no admitted for her hospice diagnosis. Hospice faxed living will and cm copied and placed under images in [facility]. CM will continue to follow and will assist as needed with dc plans/needs. Packing Room Supervisor: Eleonora Espinal RN, [facility] DCPIA - Discharge Planning Initial Assessment Updated by [id number]: Eleonora Espinal on 12/05/18 7:11 pm * Is the patient Alert and Oriented? No * How many steps to enter\\exit or inside your home? * PCP Dr. Otilia Maya * Pharmacy [facility] * Preadmission Environment Hospice * Facility Name [facility] at home * ADLs Total Dependent * Equipment Bedside Commode Hospital Bed Nebulizer Oxygen Rolling Walker Wheelchair * List name and contact numbers for known caregivers / representatives who currently or will assist patient after discharge: Jose Zavala - [place] - [phone] * Verbal permission to speak to the caregivers and representatives has been obtained from the patient. Yes * Community resources currently utilized Hospice Home * Please name any agencies selected above. [facility] at home. * Additional services required to return to the preadmission environment? Yes * Can the patient safely return to the preadmission environment? No * Has this patient been hospitalized within the prior 30 days at any hospital? Yes Last DP export: 12/09/18 7:52 p Patient Name: CHARLOTTE GARCIA Page 52439 at 2111 All edits/amendments must be made on the electronic document DICTATION DATE: 12/09/182109 WARRANT CLERK: YOLY 12/09/182109 RPT#: [id number] DC DATE: STATUS: ADM IN [facility] [address] [place] [address] END OF REPORT
--- NOTE | 2018-12-09 21:12 | NUR ---
PATIENT RECEIVED HS MEDICATIONS FOLLOWS COMMANDS, DENIES NEEDS BIPAP ON AT THIS TIME
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
--- NOTE | 2018-12-09 22:52 | NUR ---
SON CALLED FOR UPDATE, - PASSWORD GIVEN - ALL QUESTIONS ANSWERED
--- NOTE | 2018-12-09 23:10 | NUR ---
REASSESSMENT COMPLETED SEE FLOWSHEET
[2018-12-10] VITALS (25 sets, daily range): BP systolic 129–168; BP diastolic 83–123
--- NOTE | 2018-12-10 02:19 | NUR ---
CALLED DR. PAUL REGARDING PATIENT STATUS NEW ORDERS RECEIVED
--- NOTE | 2018-12-10 03:20 | NUR ---
REASSESSMENT COMPLETED SEE FLOWSHEET
--- NOTE | 2018-12-10 05:00 | NUR ---
PATIENT RESTING COMFORTABLY ON BIPAP AT 100% ABG'S IMPROVED THIS AM, DENIES NEEDS CPOC
[2018-12-10 06:58] LABS: ALBUMIN 2.7 g/dL (3.4-5.0); ANION GAP 11.8 mmol/L (8-16); BILIRUBIN - TOTAL 0.61 mg/dL (0.2-1.3); CALCIUM 8.7 mg/dL (8.5-10.1); CARBON DIOXIDE 32.1 mmol/L (21.0-32.0); HEMATOCRIT 24.9 % (36.0-48.0); HEMOGLOBIN 8.3 g/dL (12-16); MAGNESIUM - SERUM 1.7 mg/dL (1.8-2.4); MCH 27.2 pg (26.0-34.0); MCHC 33.3 g/dL (31.0-37.0); MCV 81.6 fL (80.0-100.0); POTASSIUM - SERUM 3.9 mmol/L (3.5-5.1); PROTEIN - SERUM 5.8 g/dL (6.4-8.2); RBC 3.05 10x6/uL (4.00-5.40); RDW 15.9 % (11.5-14.5); VANCOMYCIN - RANDOM 16.9 ug/mL (10.0-20.0); WBC 13.6 10x3/uL (4.8-10.8)
[2018-12-10 06:59] LABS: PLATELET COUNT 157 10x3/uL (130-400)
[2018-12-10 07:02] LABS: INR 1.66 (0.85-1.17)
[2018-12-10 07:04] LABS: PHOSPHOROUS 4.3 mg/dL (2.5-4.9)
[2018-12-10 07:05] LABS: CREATININE - SERUM 1.5 mg/dL (0.6-1.3)
[2018-12-10 08:35] LABS: HYPOCHROMASIA 1+; LYMPHOCYTES 12 % (15-50); MONOCYTES 2 % (2-11); NEUTROPHILS 86 % (40-80); PLATELET ESTIMATE NORMAL
--- NOTE | 2018-12-10 19:10 | NUR ---
SHIFT ASSESSMENT COMPLETED SEE FLOWSHEET PT VERY LETHARGIC PUPILS 6 AND NON REACTIVE AT THIS TIME, WITHDRAWS TO PAIN, NOT FOLLOWING COMMANDS. HTN AND SINUS TACH NOTED CPOC
--- NOTE | 2018-12-10 19:30 | NUR ---
RECEIVED PATIENT CARE - PATIENT 97.4 - COVERED WITH WARM BLANKET, NEURO STATUS CHANGE NOTED, PT LETHARGIC RESPONDS TO PAINFUL STIMULI - PATIENT SON CALLED FOR UPDATE - PASSWORD GIVEN ALL QUESTIONS ANSWERED - CPOC
--- NOTE | 2018-12-10 20:15 | NUR ---
SON CALLED PASSWORD GIVEN - FAMILY UPDATED AND ALL QUESTIONS ANSWERED
--- NOTE | 2018-12-10 21:04 | NUR ---
PATIENT RECEIVED HS MEDICATIONS, FAMILY AT BEDSIDE, ALL QUESTIONS ANSWERED UPDATE GIVEN, WILL CONTINUE TO MONITOR
--- NOTE | 2018-12-10 23:05 | NUR ---
PT BIPAP ALARMING, DISCONNECTED FROM PATIENT, PATIENT MOVING ARMS AND INCREASED RR AT THIS TIME. BIPAP RECONNECTED TO PATIENT, AND THIS NURSE INSTRUCTED SLOW DEEP BREATHING PATIENT RESPIRATORY RATE DECREASED AND SPO2 INCREASED. HTN AND SINUS TACH NOTED CPOC
--- NOTE | 2018-12-10 23:17 | NUR ---
REASSESSMENT COMPLETED SEE FLOWSHEET
--- NOTE | 2018-12-10 23:39 | NUR ---
BROTHER CALLED FOR UPDATE PASSWORD GIVEN - SON AT BEDSIDE AT THIS TIME, VSS CPOC
[2018-12-11] VITALS (24 sets, daily range): BP systolic 92–151; BP diastolic 74–122
--- NOTE | 2018-12-11 01:00 | NUR ---
PATIENT COLD TO TOUCH TEMP 97.1 - WARM BLANKET X2 APPLIED INCREASED ROOM TEMPERATURE AT THIS TIME
--- NOTE | 2018-12-11 04:48 | NUR ---
PT WAS ON 100% BIPAP. PO2 ELEVATED ON MORNING ABG. CHANGED PT TO 70% SATS 94% HR 132
[2018-12-11 05:49] LABS: BASOPHILS 0.3 % (0-2); EOSINOPHILS 0.1 % (0-7); HEMOGLOBIN 7.9 g/dL (12-16); IMMATURE GRANULOCYTES 6.8 % (0-5); LYMPHOCYTES 7.3 % (15-50); MCH 27.1 pg (26.0-34.0); MCHC 32.9 g/dL (31.0-37.0); MCV 82.2 fL (80.0-100.0); MEAN PLATELET VOLUME 10.1 fL (7.4-10.4); MONOCYTES 2.2 % (2-11); NEUTROPHILS 83.3 % (40-80); PLATELET COUNT 123 10x3/uL (130-400); RBC 2.92 10x6/uL (4.00-5.40); RDW 15.9 % (11.5-14.5); WBC 15.8 10x3/uL (4.8-10.8)
[2018-12-11 05:51] LABS: PROTIME 22.6 SECONDS (11.6-15.0)
[2018-12-11 05:56] LABS: ALBUMIN 2.8 g/dL (3.4-5.0); ANION GAP 14.8 mmol/L (8-16); BILIRUBIN - TOTAL 0.75 mg/dL (0.2-1.3); CARBON DIOXIDE 29.9 mmol/L (21.0-32.0); PHOSPHOROUS 4.9 mg/dL (2.5-4.9); POTASSIUM - SERUM 3.7 mmol/L (3.5-5.1); PROTEIN - SERUM 5.8 g/dL (6.4-8.2); VANCOMYCIN - RANDOM 23.7 ug/mL (10.0-20.0)
--- NOTE | 2018-12-11 06:00 | NUR ---
PT STILL MINIMALLY RESPONSIVE - 70% BIPAP - CPOC
[2018-12-11 06:04] LABS: CREATININE - SERUM 1.9 mg/dL (0.6-1.3); MAGNESIUM - SERUM 2.2 mg/dL (1.8-2.4)
[2018-12-11 06:12] LABS: INR 2.07 (0.85-1.17)
--- NOTE | 2018-12-11 07:00 | NUR ---
REC'D EYES CLOSED, VSS ON BIPAP.
--- NOTE | 2018-12-11 07:20 | NUR ---
ASSESSED. CONFUSED TO TIME/SITUATION. BECOMES IRRITABLE/AGITATED C/O BACK HURTS. WANTS TO GO HOME. REQUIRES FREQUENT REORIENTATION.
--- NOTE | 2018-12-11 08:00 | NUR ---
ASSESSED. LESS RESPONSIVE TODAY. O2 SAT DROPS QUICKLY TO 70s WHEN CHANGED TO NRB FOR ORAL CARE- RETURNS TO NORMAL WITHIN A MINUTE.
--- NOTE | 2018-12-11 08:20 | NUR ---
TRAMADOL FOR C/O BACK PAIN.
--- NOTE | 2018-12-11 09:45 | NUR ---
DR GHADA HULL- ORDERS REC'D.
--- NOTE | 2018-12-11 10:00 | NUR ---
UP TO CHAIR X15 MIN- ATTEMPTS TO GET BACK TO BED ON OWN. REQUIRES ASSIST BY 2 STAFF. GAIT UNSTEADY.
--- NOTE | 2018-12-11 12:00 | NUR ---
IN AND UPDATED.
--- NOTE | 2018-12-11 13:30 | NUR ---
DR PAUL ROUNDS- ORDERS REC'D.
--- NOTE | 2018-12-11 16:00 | NUR ---
REASSESSED- NO CHANGE.
--- NOTE | 2018-12-11 17:40 | NUR ---
FAMILY IN & UPDATED. GOLD COLORED RING W/ RED STONE REMOVED AND TAKEN BY DTR.
--- NOTE | 2018-12-11 19:25 | NUR ---
SHIFT ASSESSMENT COMPLETED PATIENT UNRESPONSIVE AT THIS TIME. NOT FOLLOWING COMMANDS, OPEN EYES SOME, NOT ON COMMAND, MOVING ARMS SOME, NOT ON COMMAND. VSS CPOC
--- NOTE | 2018-12-11 22:54 | NUR ---
PATIENT AWAKE, GRUNTING MOVING ARMS AND LEGS, TACHYCRADIA PRESENT RR 35 EYES OPEN, NOT FOLLOWING COMMANDS.
[2018-12-12] VITALS (25 sets, daily range): BP systolic 82–165; BP diastolic 51–96
--- NOTE | 2018-12-12 03:15 | NUR ---
REASSESSMENT COMPLETED SEE FLOWSHEET
[2018-12-12 06:03] LABS: HEMATOCRIT 24.6 % (36.0-48.0); MCH 27.4 pg (26.0-34.0); MCHC 32.5 g/dL (31.0-37.0); MCV 84.2 fL (80.0-100.0); MEAN PLATELET VOLUME 11.9 fL (7.4-10.4); PLATELET COUNT 87 10x3/uL (130-400); RBC 2.92 10x6/uL (4.00-5.40); RDW 16.2 % (11.5-14.5); WBC 25.5 10x3/uL (4.8-10.8)
[2018-12-12 06:04] LABS: ALBUMIN 2.9 g/dL (3.4-5.0); ANION GAP 26.4 mmol/L (8-16); BILIRUBIN - TOTAL 1.48 mg/dL (0.2-1.3); CALCIUM 8.8 mg/dL (8.5-10.1); CARBON DIOXIDE 22.1 mmol/L (21.0-32.0); CREATININE - SERUM 2.3 mg/dL (0.6-1.3); MAGNESIUM - SERUM 2.2 mg/dL (1.8-2.4); PHOSPHOROUS 6.6 mg/dL (2.5-4.9); POTASSIUM - SERUM 4.5 mmol/L (3.5-5.1); PROTEIN - SERUM 5.5 g/dL (6.4-8.2); VANCOMYCIN - RANDOM 26.4 ug/mL (10.0-20.0)
--- NOTE | 2018-12-12 07:00 | NUR ---
SHIFT ASSESSMENT COMPLETED. PT CARE ASSUMED. MONITORS ON AND WORKING, VITALS STABLE, NO SIGNS/SYMPTOMS OF PAIN OR DISCOMFORT NOTED AT THIS TIME, WILL CONTINUE TO OBSERVE.
--- NOTE | 2018-12-12 07:12 | NUR ---
FAMILY CALLED UPDATE GIVEN - PASSWORD PROVIDED
[2018-12-12 08:31] LABS: HYPOCHROMASIA OCC; LYMPHOCYTES 7 % (15-50); MONOCYTES 7 % (2-11); NEUTROPHILS 80 % (40-80)
[2018-12-12 08:32] LABS: PLATELET ESTIMATE DECREASED
--- NOTE | 2018-12-12 08:57 | NUR ---
Nutrition follow-up: Pt with BIPAP in place; unresponsive per nursing Pt unable to eat; no nutrition support at this time Labs reviewed; lactic acid 9.2 Recommend starting TPN due to BIPAP and inability to eat unless PEG/PEJ can be placed if medically feasible. RDN following.
--- NOTE | 2018-12-12 09:00 | NUR ---
PT TURNED AND REPOSITIONED FOR COMFORT. MONITORS ON AND WORKING, PT LETHARGIC. FAMILY AT BEDSIDE, UPDATE PROVIDED. WILL CONTINUE TO OBSERVE.
--- NOTE | 2018-12-12 11:00 | NUR ---
PT TURNED AND REPOSITIONED FOR COMFORT, ORAL CARE PROVIDED AT THIS TIME, MONITORS ON AND WORKING, VITALS STABLE. SEE FLOW SHEET FOR FURTHER DETAILS. WILL CONTINUE TO OBSERVE.
--- NOTE | 2018-12-12 13:00 | NUR ---
NO CHANGES. MONITORS ON AND WORKING, PT REMAINS ON BIPAP, NO OTHER CHANGES, WILL CONTINUE TO OBSERVE.
--- NOTE | 2018-12-12 15:00 | NUR ---
NO CHNAGES, MONITORS ON AND WORKING. SEE FLOW SHEET FOR FURTHER DETAILS. WILL CONTINUE TO OBSERVE.
--- NOTE | 2018-12-12 17:30 | NUR ---
REPORT RECEIVED FROM GILBERTO HILL. PT ON BIPAP AT 60%. VSS.
--- NOTE | 2018-12-12 18:48 | NUR ---
BEDSIDE SHIFT REPORT GIVEN BY DEPARTING RN. PT LAYING IN BED UNRESPONSIVE ON 60% BIPAP. PERRLA. DOES NOT FOLLOW COMMANDS. PITTING EDEMA NOTED T/O. MAG PICC LINE PATENT AND INFUSING MD ORDERED MEDS. ASSESSMENT COMPLETE. SAFETY MEASURES IN PLACE. CBIR. REPOSITIONED FOR COMFORT.
--- NOTE | 2018-12-12 19:59 | NUR ---
FAMILY CALLED TO GET UPDATE ON PT CONDITION. ALL QUESTIONS ANSWERED.
--- NOTE | 2018-12-12 20:38 | NUR ---
FAMILY AT BEDSIDE. UPDATE GIVEN. ALL QUESTIONS ANSWERED.
--- NOTE | 2018-12-12 22:39 | NUR ---
REPOSITIONED FOR COMFORT. TOLERATED WELL. SAFETY MEASURES IN PLACE. CBIR. VSS.
--- NOTE | 2018-12-12 23:04 | NUR ---
REASSESSMENT COMPLETE. NO NEW CHANGES IN PT CONDITION. VSS. REPOSITIONED. SAFETY MEASURES IN PLACE. CBIR.
[2018-12-13] VITALS (25 sets, daily range): BP systolic 128–164; BP diastolic 73–112
--- NOTE | 2018-12-13 02:36 | NUR ---
COMPLETE BED BATH GIVEN. HAIR SHAMPOOED. EKG, LINENS, BP CUFF, GOWN, AND BIPAP MASK CHANGED. VSS. TOLERATED WELL. ORAL CARE COMPLETE. MEPILEX BANDAGE APPLIED TO BRIDGE OF NOSE. ALFREDO CARE PERFORMED. REASSESSMENT COMPLETE. NO NEW CHANGES NOTED IN PT CONDITION. SAFETY MEASURES IN PLACE, CBIR.
[2018-12-13 05:40] LABS: BASOPHILS 0.6 % (0-2); EOSINOPHILS 0 % (0-7); HEMATOCRIT 24.2 % (36.0-48.0); HEMOGLOBIN 7.7 g/dL (12-16); IMMATURE GRANULOCYTES 7.7 % (0-5); MCH 27.4 pg (26.0-34.0); MCHC 31.8 g/dL (31.0-37.0); MCV 86.1 fL (80.0-100.0); NEUTROPHILS 85.7 % (40-80); PLATELET COUNT 60 10x3/uL (130-400); RBC 2.81 10x6/uL (4.00-5.40); RDW 16.6 % (11.5-14.5)
[2018-12-13 05:43] LABS: ANION GAP 26.4 mmol/L (8-16); BILIRUBIN - TOTAL 2.18 mg/dL (0.2-1.3); CALCIUM 7.9 mg/dL (8.5-10.1); CARBON DIOXIDE 21.8 mmol/L (21.0-32.0); CREATININE - SERUM 2.8 mg/dL (0.6-1.3); POTASSIUM - SERUM 4.2 mmol/L (3.5-5.1); PROTEIN - SERUM 5.5 g/dL (6.4-8.2); VANCOMYCIN - RANDOM 18.3 ug/mL (10.0-20.0)
--- NOTE | 2018-12-13 09:22 | NUR ---
Nutrition follow-up: Spoke with Dr. Chan re: nutrition support Pt too unstable at this time RDN will continue to monitor patients progress for changes in progress. Following.
--- NOTE | 2018-12-13 10:16 | NUR ---
0700 ASSESSMENT COMPLETE DOES NOT FOLLOW COMMANDS RESPONSIVE ONLY TO PAIN
--- NOTE | 2018-12-13 12:45 | NUR ---
REC'D HAND OFF REPORT AND RESUMED CARE, AROUSES TO DEEP STIMULI, NO VERBAL RESPONSE, DOES NOT FOLLOW COMMANDS, VSS, BIPAP IN USE AT 50%, REPOSITIONED TO RIGHT SIDE WITH PILLOW PROPPED TO BACK ANC HEELS FLOATED, ASSESSMENT COMPLETED, CONTINUING POC
--- NOTE | 2018-12-13 13:13 | NUR ---
0900 NO VISITS OR CALLS FROM FAMILY REPOSITIIOND ORAL CARE PROVIDED NO DISTRESS NOTED. NO CHANGES IN ASSESSMENT
--- NOTE | 2018-12-13 13:14 | NUR ---
1100 HEART RATE REMAINS SINUS TACH AT 110
--- NOTE | 2018-12-13 16:45 | NUR ---
SKILLED HELPER FROM [facility] HERE TO MEET WITH FAMILY, STATED THAT SHE NEED TO HAVE MEDICAL PROXY TO SIGN REVOCATION PAPERS, NO FAMILY HERE AT THIS TIME, SHE WILL CALL THEM AND TRY TO SET UP ANOTHER MEETING
--- NOTE | 2018-12-13 19:26 | NUR ---
BEDSIDE SHIFT REPORT GIVEN BY DEPARTING RN. PT LAYING IN BED WITH BIPAP ON. RESPONDS TO TACTILE STIMULATION BY GRIMACING ONLY. MAG PICC LINE INFUSING MD ORDERED MEDS. F/C DRAINING TO GRAVITY. EDEMA NOTED T/O. ASSESSMENT COMPLETE. SEE FS FOR DETAILS.
--- NOTE | 2018-12-13 20:18 | NUR ---
FAMILY AT BEDSIDE. UPDATE GIVEN. ALL QUESTIONS ANSWERED.
--- NOTE | 2018-12-13 21:49 | NUR ---
REPOSITIONED FOR COMFORT. TOLERATED WELL.
--- NOTE | 2018-12-13 23:00 | NUR ---
REASSESSMENT COMPLETE. REPOSITIONED. NO NEW CHANGES NOTED.
[2018-12-14] VITALS (23 sets, daily range): BP systolic 119–171; BP diastolic 69–118
--- NOTE | 2018-12-14 03:57 | NUR ---
REASSESSMENT COMPLETE. NO NEW CHANGES NOTED IN PT CONDITION. SEE FS FOR DETAILS. SAFETY MEASURES IN PLACE. CBIR. VS REMAIN UNCHANGED.
[2018-12-14 05:39] LABS: HEMATOCRIT 34.4 % (36.0-48.0); HEMOGLOBIN 11.3 g/dL (12-16); MCH 28.5 pg (26.0-34.0); MCHC 32.8 g/dL (31.0-37.0); MCV 86.6 fL (80.0-100.0); PLATELET COUNT 52 10x3/uL (130-400); RBC 3.97 10x6/uL (4.00-5.40); RDW 16.3 % (11.5-14.5); WBC 27.8 10x3/uL (4.8-10.8)
[2018-12-14 05:40] LABS: ALBUMIN 3.4 g/dL (3.4-5.0); ANION GAP 20.5 mmol/L (8-16); BILIRUBIN - TOTAL 3.51 mg/dL (0.2-1.3); CALCIUM 8.3 mg/dL (8.5-10.1); CARBON DIOXIDE 26.6 mmol/L (21.0-32.0); CREATININE - SERUM 2.8 mg/dL (0.6-1.3); POTASSIUM - SERUM 4.1 mmol/L (3.5-5.1)
--- NOTE | 2018-12-14 05:56 | NUR ---
COMPLETE BED BATH GIVEN USING CHG SOLUTION. LINENS CHANGED. ALFREDO CARE PERFORMED. ORAL CARE PERFORMED. TOLERATED WELL.
[2018-12-14 06:31] LABS: LYMPHOCYTES 5 % (15-50); MONOCYTES 3 % (2-11); NEUTROPHILS 91 % (40-80); PLATELET ESTIMATE DECREASED
--- NOTE | 2018-12-14 08:37 | NUR ---
Nutrition follow-up: Pt remains NPO; BIPAP in place Does not respond much Labs reviewed When medically stable will need to start nutrition support. RDN following.
--- NOTE | 2018-12-14 09:47 | NUR ---
DR. TRONCOSO NOTIFIED OF AMMONIA LEVEL. ORDERED NGT TO BE INSERTED AND LACTULOSE 15ML Q 4HR.
--- NOTE | 2018-12-14 10:02 | NUR ---
16 Azeri NG Tube inserted to left nare per orders. 15ml lactulose given at this time per orders. Pt tolerated NGT insertion well. Will continue to monitor.
--- NOTE | 2018-12-14 11:00 | NUR ---
REASSESSMENT COMPLETE, VSS. MEDS GIVEN PER MAR. WILL CONTINUE TO MONITOR.
--- NOTE | 2018-12-14 13:00 | NUR ---
MEDS GIVEN PER MAR. FAMILY AT BEDSIDE, UPDATE GIVEN. WILL CONTINUE TO MONITOR.
--- NOTE | 2018-12-14 14:00 | NUR ---
SON, ERIKA, AND BROTHER AT BEDSIDE. UPDATE GIVEN TO FAMILY, INFORMED THAT THE POA FOR THE PATIENT IS HER BOYFRIEND ANURAG. AFTER I INFORMED ERIKA THAT HE WAS NOT POA AND THAT ANURAG WAS HE SAID, "ANURAG WILL DO WHAT I TELL HIM TO. I'VE BEEN IN [place]TER[place] FOR 7 YEARS AND IM PART OF THE HELLS ANGELS, HE WILL DO WHAT I SAY". ERIKA THEN STATED "ANURAG AND MY SISTER ARE COMING UP HERE AND HE IS GOING TO SIGN POA OVER TO US". GILBERTO HOLDEN WITNESSED. AT THIS TIME MARYURI NG RN NOTIFIED.
--- NOTE | 2018-12-14 15:00 | NUR ---
MAG PICC LINE DRESSING CHANGE AND REPOSITIONING COMPLETED. NO CHANGED NOTED, WILL CONTINUE TO MONITOR.
--- NOTE | 2018-12-14 17:00 | NUR ---
T 100.1, MANLEY CARE AND REPOSITIONING COMPLETED.
--- NOTE | 2018-12-14 19:15 | NUR ---
pt nonresponsive, bipap in use with o2@ 45%, temp 101.7 ax, ice packs placed to groin and axillary
--- NOTE | 2018-12-14 21:41 | NUR ---
temp 101.3, given tylenol supp, remains nonresponsive
--- NOTE | 2018-12-14 23:30 | NUR ---
PT REMAINS UNRESPONSIVE, ICE PACKS IN USE FOR INCREASED TEMP
[2018-12-15] VITALS (24 sets, daily range): BP systolic 107–152; BP diastolic 55–114
--- NOTE | 2018-12-15 01:30 | NUR ---
TEMP DECREASED, REMAINS NONRESPONSIVE ON BIPAP
--- NOTE | 2018-12-15 03:30 | NUR ---
PT REMAINS NONRESPONSIVE ON BIPAP, VITALS STABLE
[2018-12-15 04:57] LABS: BASOPHILS 1.4 % (0-2); EOSINOPHILS 0 % (0-7); HEMATOCRIT 32.5 % (36.0-48.0); HEMOGLOBIN 10.4 g/dL (12-16); IMMATURE GRANULOCYTES 2.6 % (0-5); LYMPHOCYTES 2.4 % (15-50); MCH 28.3 pg (26.0-34.0); MCV 88.6 fL (80.0-100.0); MONOCYTES 5.3 % (2-11); NEUTROPHILS 88.3 % (40-80); PLATELET COUNT 56 10x3/uL (130-400); RBC 3.67 10x6/uL (4.00-5.40); RDW 16.9 % (11.5-14.5); WBC 23.5 10x3/uL (4.8-10.8)
[2018-12-15 05:07] LABS: ALBUMIN 3.6 g/dL (3.4-5.0); BILIRUBIN - TOTAL 5.99 mg/dL (0.2-1.3); CARBON DIOXIDE 31.7 mmol/L (21.0-32.0); CREATININE - SERUM 3.1 mg/dL (0.6-1.3); POTASSIUM - SERUM 3.7 mmol/L (3.5-5.1)
--- NOTE | 2018-12-15 05:32 | NUR ---
NOTIFIED ANTONIO OF CRITICAL LABS, WILL DEFER TO DR SHIRLEY
--- NOTE | 2018-12-15 07:00 | NUR ---
SHIFT ASSESSMENT COMPLETED. PT CARE ASSUMED. MONITORS ON AND WORKING. PT REMAINS LETHARGIC ON BIPAP. WILL CONTINUE TO OBSERVE.
--- NOTE | 2018-12-15 09:00 | NUR ---
PT TURNED AND REPOSITIONED FOR COMFORT, MONITORS ON AND WORKING, WILL CONTINUE TO OBSERVE.
--- NOTE | 2018-12-15 11:00 | NUR ---
NO CHANGES, SEE FLOW SHEET FOR FURTHER DETIALS. WILL CONTINUE TO OBSERVE.
--- NOTE | 2018-12-15 13:02 | NUR ---
RECIEVED REPORT ON PT AT THIS TIME. NO ACUTE DISTRESS NOTED. ALL PULSES NOTED VIA DOPPLER. PT DOES NOT FOLLOW COMMANDS. TURNED Q2H. WILL CONTINUE PLAN OF CARE.
--- NOTE | 2018-12-15 15:09 | NUR ---
NO ACUTE DISTRESS NOTED. NO CHANGE. VSS. TURNED Q2H. WILL CONTINUE PLAN OF CARE.
--- NOTE | 2018-12-15 17:15 | NUR ---
family called given update. no new changes vsss will continue to monitor
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
--- NOTE | 2018-12-15 19:30 | NUR ---
ASSESSMENT COMPLETED, PT UNRESPONSIVE, BIPAP IN USE WITH O2 @ 45%, L PICC INTACT WITH D5@75CC/HR,MOTTLING NOTED
--- NOTE | 2018-12-15 21:30 | NUR ---
NO CHANGE IN STATUS, RESP SHALLOW, L FOOT TOES AND RIGHT MIDDLE TOE APPEAR DARK AND COLD
--- NOTE | 2018-12-15 23:30 | NUR ---
SON PRESENT @ BEDSIDE, DISCUSSED POOR PROGNOSIS, WILL TALK WITH HIS SISTER
[2018-12-16] VITALS (11 sets, daily range): BP systolic 121–146; BP diastolic 73–97
--- NOTE | 2018-12-16 | NUR ---
DAUGHTER AT BEDSIDE, DISCUSSED PROGNOSIS, EXPLAINED PROCESS OF TERMINALLY WEANING OF BIPAP, FAMILY WILL DISCUSS WITH MD IN AM
--- NOTE | 2018-12-16 02:31 | NUR ---
REMAINS NONRESPONSIVE, TUGGING WITH RESPIRATIONS, BILAT FEET COLD WITH DARKENED TOES
[2018-12-16 04:07] LABS: HEMATOCRIT 32.6 % (36.0-48.0); HEMOGLOBIN 10.2 g/dL (12-16); MCH 28.5 pg (26.0-34.0); MCHC 31.3 g/dL (31.0-37.0); MCV 91.1 fL (80.0-100.0); PLATELET COUNT 62 10x3/uL (130-400); RBC 3.58 10x6/uL (4.00-5.40); RDW 17.8 % (11.5-14.5); WBC 24.3 10x3/uL (4.8-10.8)
[2018-12-16 04:26] LABS: PROTIME 50.8 SECONDS (11.6-15.0)
[2018-12-16 04:27] LABS: ALBUMIN 3.9 g/dL (3.4-5.0); BILIRUBIN - TOTAL 5.43 mg/dL (0.2-1.3); CALCIUM 8.3 mg/dL (8.5-10.1); CREATININE - SERUM 2.8 mg/dL (0.6-1.3); INR 5.74 (0.85-1.17); MAGNESIUM - SERUM 2.7 mg/dL (1.8-2.4); PHOSPHOROUS 5.1 mg/dL (2.5-4.9); POTASSIUM - SERUM 3.2 mmol/L (3.5-5.1); PROTEIN - SERUM 6.2 g/dL (6.4-8.2)
[2018-12-16 04:30] LABS: ANION GAP 12.2 mmol/L (8-16)
--- NOTE | 2018-12-16 04:40 | NUR ---
CRITICAL LABS CALLED TO [facility], WILL DEFER TO DR SHIRLEY WHEN HE ROUNDS THIS AM
[2018-12-16 04:48] LABS: BASOPHILS 2 % (0-2); LYMPHOCYTES 2 % (15-50); MONOCYTES 7 % (2-11); NEUTROPHILS 87 % (40-80); PLATELET ESTIMATE DECREASED
--- NOTE | 2018-12-16 06:04 | NUR ---
HR 100, RR 13, NONRESPONSIVE TO STIMULI
--- NOTE | 2018-12-16 06:19 | NUR ---
PLACED CALL TO PT'S SON ERIKA, NOTIFIED HIM OF PT WORSENING CONDITION, ADVISED HIM TO COME SPEND TIME WITH HER
--- NOTE | 2018-12-16 07:00 | NUR ---
REPORT RECEIVED. ASSESSMENT COMPLETE ER FLOW SHEET. VSS. WILL CONTINUE TO MONITOR
--- NOTE | 2018-12-16 07:33 | NUR ---
FAMILY AT BEDSIDE. GIVEN UPDATE. COMPLETE BB LINEN CHANGE ADM.
--- NOTE | 2018-12-16 08:15 | NUR ---
SON AT BEDSIDE GIVEN UPDATE REGAURDING PT STATUS BEING GAURDED AT THIS TIME STATED HE UNDERSTOOD AWAITING PHYSICIAN.
--- NOTE | 2018-12-16 08:18 | NUR ---
5-6 FAMILY MEMBERS AT BEDSIDE INCLUDING DAUGHTER WHO APPEARED TO BE ON DRUGS STORMED INTO ROOM, DAUGHTER RANTING THAT "WE CAUSED HER TO BE THIS WAY" (THE PT) DAUGHTER SEEMED TO BE MAKING NEW FAMILY AND FRIENDS MAD AT THE CARE SHE HAS RECIEVED AT THIS FACILITY STATING "THEY ARE LEAVING HER IN PAIN THEY WONT GIVE HER ANY MORPHINE OR ATIVAN" ETC. OTHER FAMILY IN ROOM AT THIS TIME MADE NEGATIVE COMMENTS INCLUDING "SOMEONE NEEDS TO BE IN THIS ROOM AT ALL TIMES SHE DOES NOT NEED TO BE ALONE WITH THEM" ENRIQUETA MACIAS AT THIS TIME ATTEMPTED TO SPEAK WITH DAUGHTER IN REGUARDS TO NEGATIVE ATTITUDE AND WRONG INFORMATION GIVEN TO FAMILY AND FRIEND CAUSING THEM TO BE UPSET DAUGHTER AT THIS TIME LEFT UNIT. 0825 DAUGHTER BACK AT BEDSIDE WITH MULTIPLE FAMILY MEMBERS AT THIS TIME ENRIQUETA MACIAS STATED THAT ONLY TWO PEOPLE CAN BE BACK AT A TIME PER POLICY, AT THIS TIME SHE STATED "YOUR STUPID, WE HAVE HAD ALL OF OUR FAMILY BACK HERE ALL MORNING" HER FRIEND AT THIS TIME STATED "ARE YOU REALLY GOING TO KEEP HER OWN FAMILY FROM HER WHEN SHE IS DYING" ENRIQUETA MACIAS ATTEMPTED TO TALK TO FAMILY STATING ITS PER POLICY AND IT WOULDNT HAVE BEEN AN ISSUE BUT THERE WAS TOO MUCH TENSION AND ISSUES ARISING IN THE ROOM WITH EVERYONE BACK SO IT WOULD BE TWO AT A TIME AT THIS POINT FORWARD SO SHE WOULD NEED TO LEAVE IF THE OTHER TWO WANTED TO STAY BACK AT THIS TIME THE DAUGHTER STATED "YOU CANNOT MAKE ME LEAVE" ENRIQUETA MACIAS AT THIS TIME GOT MARYURI NG RN INVOLVED AND CALLED SECURITY TO THE UNIT. MARYURI SPOKE TO FAMILY AT GREAT LENGTH BROTHER'S OF PT AND SON IN AGGREANCE WITH HER ACTIONS BEING OUT OF LINE AND APOLOGIZED. DAUGHTER LEFT ROOM ONCE SECURITY CALLED.
--- NOTE | 2018-12-16 08:50 | NUR ---
Nutrition follow-up: Chart reviewed. Bipap in place NPO Still too unstable for nutrition support. RDN following.
--- NOTE | 2018-12-16 11:00 | NUR ---
REASSESSMENT COMPLETE PER FLOW SHEET. VSS. NO NEW CHANGES PT RESTING COMFORTABLY WILL CONTINUE TOMONITOR
--- NOTE | 2018-12-16 11:13 | CN ---
PATIENT NAME:CHARLOTTE GARCIA MEDICAL RECORD: [id number] : 60 LOCATION:SAPPHIRED.2301 ADMIT DATE: 12/05/18 ACCOUNT: [id number] CONSULTING PHYSICIAN: CHASE FRANCO MD REFERRING PHYSICIAN: ANDREW GUO MD DATE OF CONSULTATION: 12/10/2018 CARDIOLOGY CONSULTATION DIAGNOSES: 1. Tachycardia. 2. Respiratory failure. 3. Chronic obstructive pulmonary disease. 4. Pneumonia. HISTORY OF PRESENT ILLNESS: Mrs. Garcia presents with respiratory failure. Her respiratory status has worsened since she has been here. She is more tachycardic. She has a sinus tachycardia in 130s. She did have an echo this admission, this was overall normal. She has not had any significant dysrhythmias other than the sinus tachycardia. PHYSICAL EXAMINATION: GENERAL APPEARANCE: Well-nourished, well-developed, appears stated age. Level of distress, comfortable. PSYCHIATRIC: Mental status, alert, normal affect. Orientation, oriented to time, place and person. EYES: Lids and conjunctiva, noninjected. No discharge, no pallor. ENT: Lips, teeth, gums, normal dentition. Oropharynx, no cyanosis, no pallor. NECK: Carotid arteries, bilateral normal upstroke, no bruits, no thrills. JUGULAR VEINS: No jugular venous pressure or distention. CERVICAL LYMPH NODES: Nontender, nonenlarged. THYROID: Not enlarged. Nontender. No nodules. LUNGS: Respiratory effort, unlabored. CHEST: Normal curvature. No thoracic deformity. No chest wall tenderness. Percussion, resonant. Auscultation, clear. No wheezes, no rales, no rhonchi. CARDIOVASCULAR: Precordial exam, nondisplaced. No heaves or pericardial thrills. Rate and rhythm, regular. Heart sounds, normal S1, normal S2. No S3, no gallop, no rub. Systolic murmur, not heard. Diastolic murmur, not heard. EXTREMITIES: No cyanosis, no edema. Peripheral pulses, full and equal in all extremities, except as noted. No bruits appreciated. ABDOMEN: Soft, nondistended. Normal aorta. No bruit. Nontender. No masses. Liver, nontender, no hepatomegaly. Spleen, nontender, no splenomegaly. MUSCULOSKELETAL: No joint tenderness. No joint swelling. No erythema. NEUROLOGICAL: Normal gait, normal strength, normal tone. SKIN: Warm and dry. OVERALL IMPRESSION: Sinus tachycardia and physiologic response to the respiratory failure. At this time, no other cardiac workup or treatment is necessary. TRANSINT:[id number] Voice Confirmation ID: [id number] DOCUMENT ID: [id number] CONSULT REPORT [id number] CHARLOTTE GARCIA, CHASE BRADLEY at 1113 CC: [id number] DICTATION DATE: 12/10/18 1023 SEO MANAGER: 12/10/18 1040 ADM IN [place] [id number] [place] [address]
--- NOTE | 2018-12-16 13:20 | NUR ---
PT REPOSITIONED FOR COMFORT NO NEW CHANGES WILL CONTINUE TO MONITOR
--- NOTE | 2018-12-16 13:50 | NUR ---
COMPLETE BB LINEN CHANGE ADM R/T LARGE LIQUID BM. PT BREATHING AND HR CHANGED AT THIS TIME. ATTEMPTED TO CALL FAMILY WITH NO ANSWER
--- NOTE | 2018-12-16 14:39 | NUR ---
SPOKE TO BROTHER OF PATIENT ABOUT PATIENTS DECLINING STATUS.
--- NOTE | 2018-12-16 14:39 | NUR ---
SON ERIKA CALLED TO FIND OUT WHAT "CHANGE" GOING ON WITH PATIENT. LET HIM KNOW THAT WE HAD TO CLEAN HER UP AND REPOSITION HER AND SHE WAS NOT TOLERATING ACTIVITY, THAT HER HEART RATE AND RHYTHM WERE IRREGULAR AND WE CALLED THE BROTHER BECAUSE WE COULD NOT REACH ANURAG AND DID NOT HAVE A NUMBER FOR HIM. (HE WAS INFORMED BY PT BROTHER OF CHANGE IN STATUS). ERIKA SAID HE WOULD BE UP HERE TO SEE PATIENT WITHIN THE HOUR BECAUSE HE IS GOING TO TAKE A SHOWER AND CHANGE CLOTHES FIRST.
--- NOTE | 2018-12-16 14:50 | NUR ---
PT ASYSTOLE ON THE MONITOR BIPAP REMOVED. FAMILY CALLED GIVEN UPDATE
--- NOTE | 2018-12-16 15:10 | NUR ---
FAMILY AT BEDSIDE GIVEN UDPATE
--- NOTE | 2018-12-16 15:17 | NUR ---
PT BROTHER AND SON ERIKA IN TO SEE PATIENT. VERY BRIEF VISIT AND THEN LEFT.
--- NOTE | 2018-12-16 15:35 | NUR ---
ЕЛЕНА CALLED BACK GIVEN UPDATE RULLED OUT
--- NOTE | 2018-12-16 15:38 | NUR ---
DR SHIRLEY CALLED BACK GIVEN UDPATE STATED WOULD CALL ER
--- NOTE | 2018-12-16 15:40 | NUR ---
ER DOC AT BEDSIDE TO PRONOUNCE
--- NOTE | 2018-12-16 16:30 | NUR ---
GROSS HOME NOTIFIED AWAITING DIGNA
--- NOTE | 2018-12-16 17:10 | NUR ---
HOME AT BEDSIDE GIVEN UDPATE PT LEFT VIA GURNEY NEEDS MET
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
== END 2018-12-16 18:06 | DRG 871 ==
LOC: D.ER 15:29 → D.ICU 17:47
PROVIDERS: Emergency Medicine; Family Medicine; Internal Medicine Pulmonary Disease; ADMIT Internal Medicine Nephrology; ATTEND Internal Medicine Nephrology
PROC: 05HQ33Z Insertion of Infusion Device into Left External Jugular Vein, Percutaneous Approach (ICD-10-PCS; principal; 2018-12-05)
DX: A41.9 Sepsis, unspecified organism (principal); G92 Toxic encephalopathy; R65.21 Severe sepsis with septic shock; N17.0 Acute kidney failure with tubular necrosis; J18.9 Pneumonia, unspecified organism; J96.21 Acute and chronic respiratory failure with hypoxia; E87.2 Acidosis; E87.3 Alkalosis; E87.1 Hypo-osmolality and hyponatremia; I50.30 Unspecified diastolic (congestive) heart failure; D50.9 Iron deficiency anemia, unspecified; E87.5 Hyperkalemia; E11.9 Type 2 diabetes mellitus without complications; E83.51 Hypocalcemia; Z66 Do not resuscitate; J44.9 Chronic obstructive pulmonary disease, unspecified; M19.90 Unspecified osteoarthritis, unspecified site; K21.9 Gastro-esophageal reflux disease without esophagitis; G40.909 Epilepsy, unspecified, not intractable, without status epilepticus; R00.0 Tachycardia, unspecified; I11.0 Hypertensive heart disease with heart failure; R68.0 Hypothermia, not associated with low environmental temperature; K72.90 Hepatic failure, unspecified without coma